=== PATIENT | female | born 1985 | race Caucasian/White ===

== ENCOUNTER 2020-03-03 21:41 | Emergency (ER) | payer OTHER, SELFPAY ==
[2020-03-03 21:41] VITALS: BP 140/83; PULSE 89; RESP 15; TEMP 36.7; O2SAT 100; BMI 24.5
--- NOTE | 2020-03-03 22:00 | ED.DCSUM_ITS ---
History of Present Illness Chief Complaint: Back Informant: Patient Onset: Today Current Severity: Moderate Maximum Severity: Moderate Narrative: Patient presents with low back pain after falling off her horse 2 and half hours ago. Patient does not remember how she landed. She complaining of pain in her lower back. When she tries to walk she will get some pain in her left leg as well. She is had no problems with bowel or bladder control. She was not wearing a helmet. She states she might of gotten a slight abrasion on her head but no significant head injury. Past Medical History - Allergies and Home Meds Allergies/Adverse Reactions: Allergies No Known Allergies Allergy (Verified 03/03/20 21:44) Primary Care Physician: Laurita Contreras MD [Primary Care Provider] - Past Medical History: None Lives: With Family Smoking Status: Never smoker Review of Systems General: Denies: Chills, Fever Eyes: Denies: Visual changes - bilaterally ENT: Denies: Bilateral ear pain Cardiovascular: Denies: Chest pain Respiratory: Denies: Dyspnea, Cough Gastrointestinal: Denies: Abdominal pain, Nausea, Vomiting, Diarrhea Musculoskeletal: Reports: Back pain, Extremity Pain Skin: Reports: Abrasions Neurological: Denies: Headache, Parasthesia, Numbness Hematologic: Denies: Easy bruising, Easy bleeding Allergy: Denies: Uticaria Physical Exam Vital Signs/Narrative: Vital Signs Temp Pulse Resp BP Pulse Ox 03/03/20 21:41 98.1 F 89 15 140/83 H 100 Inital Vital Signs reviewed: Yes General: Well nourished, Well developed Head: Normocephalic ENT: Moist mucous membranes Neck: Supple Cardiovascular: Regular rate, Regular rhythm Respiratory: No distress, CTA bilaterally Abdomen: Soft, Nontender Back: - - Tenderness over the lower lumbar spine. Abrasions are noted across the lower lumbar region/upper pelvis.. Negative for: CVA tenderness Extremities: Nontender Skin: Normal color, No rash Neurological: Alert, Oriented x3, Normal Strength, Normal Sensation Psychological: Normal affect Diagnostic/Tx/Re-eval Impressions Abdomen/Pelvis CT 03/03/20 22:00 IMPRESSION: No CT evidence of acute injury involving the abdomen or pelvis. 5.8 x 5.1 cm cystic lesion in the posterior right pelvis, likely ovarian or adnexal in origin. Electronically Signed: Mario Walls MD at 22:25 EDT Tel , Service support , 03/03/20 22:00 Abdomen/Pelvis without Cont [CT] Stat - Medical Decision Making Patient was given Naprosyn, Flexeril, [place] here for pain. CT flank was obtained. Official read reveals evidence of a probable ovarian cyst but no bony abnormality. It does appear she has some inflammation changes noted in the soft tissue of the left lower flank. Kidneys are unremarkable on my review. Patient will be given prescriptions for home. She is given work restrictions for the next 5 days. ED Disposition - Plan for ED Patient: Disposition: Home or Assisted Living Diagnosis: Back contusion Instructions: ED Contusion Back Prescriptions: cycloBENZAPRine HCl [Flexeril] 10 mg PO TID PRN #20 tablet PRN Reason: Muscle Spasm Naproxen [Naprosyn] 500 mg PO BID PRN PRN #20 tablet PRN Reason: Pain Score 4-10/10 Hydrocodone Bitart/Apap 5-325 [[place] 5MG-325MG] 1 tablet PO Q6H PRN PRN 3 Days #10 tablet PRN Reason: Pain Referrals: Laurita Contreras MD [Primary Care Provider] - 1 Week if not improving
--- NOTE | 2020-03-03 22:00 | CT_ITS ---
STUDY: CT ABDOMEN AND PELVIS WITHOUT CONTRAST REASON FOR EXAM: Female, 34 years old. FELL OFF HORSE, NOW HAVING LBP RADIATION DOSAGE (If Supplied By Facility): CTDIvol = ( 7.56 ) mGy, DLP = ( 339.93 ) mGycm TECHNIQUE: Transaxial images were obtained from the dome of the diaphragm to the symphysis pubis without oral contrast, and without intravenous contrast. Sagittal and coronal images were reconstructed. Individualized dose optimization techniques were used for this CT. COMPARISON: None. FINDINGS: The visualized lung bases are unremarkable. The visualized portions of the heart are within normal limits. Normal liver. Normal gallbladder and extrahepatic biliary system. Normal spleen. Normal pancreas. Normal bilateral adrenal glands. Normal right kidney. Normal left kidney. Normal visualized stomach. Normal small intestine. Normal colon. The appendix is visualized and appears normal. Normal abdominal aorta. Normal inferior vena cava. Normal retroperitoneum. Normal urinary bladder. 5.8 x 5.1 cm cystic lesion in the posterior right pelvis, likely ovarian or adnexal in origin. Normal abdominal wall. Normal osseous structures. CT/Abdomen/Pelvis without Cont IMPRESSION: No CT evidence of acute injury involving the abdomen or pelvis. 5.8 x 5.1 cm cystic lesion in the posterior right pelvis, likely ovarian or adnexal in origin. Electronically Signed: Mario Walls MD at 22:25 EDT Tel , Service support ,
[2020-03-03] MEDS: cycloBENZAPRine HCl 10 MG Tablet PO (22:04)
[2020-03-03] MEDS: Naproxen 500 MG Tablet PO (22:04)
[2020-03-03] MEDS: HYDROcodone Bitartrate/Apap 5/325 Tablet PO (22:04)
[2020-03-03 22:55] VITALS: BP 136/80; PULSE 79; RESP 18; O2SAT 96
== END 2020-03-03 22:55 | disposition home or self-care (01) ==
PROVIDERS: Emergency Provider Emergency Medicine; PCP Internal Medicine
DX: S30.0XXA Contusion of lower back and pelvis, initial encounter (principal); V80.010A Animal-rider injured by fall from or being thrown from horse in noncollision accident, initial encounter; Y93.9 Activity, unspecified; Y92.9 Unspecified place or not applicable
CPT/HCPCS: 74176; 99283

== ENCOUNTER 2025-02-28 04:59 | Emergency (ER) | payer OTHER, SELFPAY ==
[2025-02-28 05:01] VITALS: BP 146/89; PULSE 88; RESP 18; TEMP 36.6; O2SAT 100; BMI 24.1
--- NOTE | 2025-02-28 05:02 | ED.VIS.CHEST ---
HPI History of Present Illness Chief Complaint: Chest Pain Informant: patient Onset/Context/Timing Onset: Days (3) Activity at onset: sudden Timing: Intermittent Location: Right Chest Worsened By: Nothing Relieved By: - (Pushing on right upper chest) Associated Symptoms: Positive for Nausea, Dyspnea, Lightheadedness and Palpitations; Negative for Vomiting, Diaphoresis, Cough, Fever or Acid Reflux Narrative Narrative: Patient presents with chest pain that has been intermittent over the past 3 days. Patient states her pain comes on rather suddenly. Patient states it comes and goes. Patient describes it as a cramping sensation. Patient states it is over the right upper chest. Patient states nothing makes it worse. Patient states that it gets better when she pushes on her right upper chest. Patient admits to some nausea but denies any vomiting. Patient admits to some shortness of breath. Patient admits to some lightheadedness. Patient also admits to occasional palpitations. Patient denies any vomiting. Patient denies any cough or fever. CVD Risk Factors: Negative for Hypertension, Diabetes, Hypercholesterolemia, Family History 1' </=55 or Smoking PE Risk Factors: Negative for Recent Travel/Surgery, Recent Immobilization, Prior DVT or PE, Cancer or OCP + Smoking + >/=35 PFSH PFSH Medical History Hx of ovarian cyst Renetta thyroiditis Home Medications ?Medication ?Instructions ?Recorded ?Last Taken ?Type norgestimate-ethinyl estradiol 1 tab PO DAILY 02/28/25 Unknown History 0.18mg/0.215mg/0.25mg-0.035mg(28)tablet (Tri-Sprintec (28)) Allergy/AdvReac Type Severity Reaction Status Date / Time No Known Allergies Allergy Verified 02/28/25 05:00 Surgical History Hx of tubal ligation Social History Smoking Status: Never smoker ROS ROS ED Constitutional Constitutional ED: Reports sweats; Denies chills or fever(s) Eyes Eyes: Denies blurry vision or change in vision ENT ENT ED: Denies rhinorrhea or sore throat Cardiovascular Cardiovascular: Reports chest pain and palpitations Respiratory/Chest Respiratory/Chest: Reports dyspnea; Denies cough Gastrointestinal Gastrointestinal: Reports nausea; Denies vomiting Genitourinary Genitourinary ED: Denies dysuria or hematuria Musculoskeletal Musculoskeletal: Denies back pain or neck pain Integumentary Denies abscess or rash Neurologic Neurologic: Reports headache(s); Denies weakness Allergic/Immunologic Allergic/Immunologic ED: Denies mouth swelling or urticaria EXAM Physical Exam Const Vital Signs: 02/28/25 05:01 02/28/25 05:03 02/28/25 05:39 Temperature 97.8 F Temperature Source Oral Pulse Rate 88 Respiratory Rate 18 Respiratory Effort Normal Non-Labored Respiratory Pattern Normal Blood Pressure 146/89 H Blood Pressure Mean 108 Pulse Ox 100 98 Oxygen Delivery Method Room Air Room Air 02/28/25 06:00 Temperature Temperature Source Pulse Rate 72 Respiratory Rate 17 Respiratory Effort Respiratory Pattern Blood Pressure 133/87 H Blood Pressure Mean 102 Pulse Ox 99 Oxygen Delivery Method Room Air Positive well nourished and well developed Constitutional Narrative: BMI is 24.1. General Appearance ED: well developed and NAD HEENT Reports moist mucous membranes Neck supple and no JVD Chest Wall palpation of chest normal Resp normal respiratory effort and clear to auscultation bilaterally Cardio regular rate and regular rhythm GI soft to palpation, non-tender and non-distended Extremity normal to inspection General Extremety ED: Negative for edema or tenderness General Extremity: Negative for edema Neuro oriented x3, CN's II-XII intact bilaterally and no sensory deficits noted Sensorium / Orientation: awake and alert Motor Exam: strength 5/5 throughout Psych mental status grossly normal Heart Score History: Slightly/Non-Suspicious ECG: Normal Age: </= 45 years Risk Factors: No Risk Factors Troponin: </= Normal Limit Score: 0 MDM MDM MDM Narrative Medical decision making narrative: Differential diagnosis includes cardiac dysrhythmia, cardiac ischemia, pneumonia, bronchitis, electrolyte abnormality, pulmonary embolism, and musculoskeletal pain. EKG will be obtained to assess for cardiac dysrhythmia and cardiac ischemia. Chest x-ray will be obtained to assess for pneumonia or bronchitis. CBC will be obtained to assess for leukocytosis and anemia. Basic metabolic profile will be obtained to assess for electrolyte abnormality and renal function. High-sensitivity troponin will be obtained to assess for cardiac ischemia. 2-hour repeat high-sensitivity troponin will be obtained to assess for ongoing cardiac ischemia. D-dimer will be obtained to assess for pulmonary embolism. Lab Data Attestation: I reviewed the patient's lab results. Lab results narrative: CBC was reviewed. There is a slight anemia with a hemoglobin of 11.6 and 34.5. Basic metabolic profile was reviewed. BUN was slightly elevated at 35. Creatinine was slightly low at 0.63. The remainder is within normal limits. High-sensitivity troponin was reviewed and was less than 6. D-dimer was reviewed and was slightly elevated at 0.85. Labs: Laboratory Results - last 24 hr 02/28/25 05:10 WBC 9.1 RBC 3.78 L Hgb 11.6 L Hct 34.5 L MCV 91.3 MCH 30.7 MCHC 33.6 RDW Std Deviation 42.1 RDW Coeff of Elis 12.7 Plt Count 311 MPV 10.9 Immature Gran % (Auto) 0.300 Neut % (Auto) 64.5 Lymph % (Auto) 24.5 [place] % (Auto) 5.4 Eos % (Auto) 5.0 Baso % (Auto) 0.3 Absolute Neuts (auto) 5.9 Absolute Lymphs (auto) 2.22 Nucleated RBC % 0 D-Dimer Quant (PE/DVT) 0.85 H* Sodium 140 Potassium 4.7 Chloride 104 Carbon Dioxide 26.1 Anion Gap 9 BUN 35 H Creatinine 0.63 L Estim Creat Clear Calc 104.55 Est GFR (MDRD) Non-Af 117 BUN/Creatinine Ratio 55.4 H Glucose 84 Calcium 8.8 Troponin T High Sens < 6 Radiography Chest X-Ray - ED: 2 View, Read by ED Physician, Read by Radiologist and No Acute Disease Diagnostic Testing: Clinical Impression(s) from Imaging Studies Chest X-Ray 02/28/25 06:00 IMPRESSION: No acute process is identified in the chest. [facility] CTA 02/28/25 06:32 IMPRESSION: NORMAL CHEST CTA. NO EVIDENCE OF ACUTE PULMONARY EMBOLISM. Reading Location: [id number] and lateral chest x-ray was obtained. There are 2 views. On my independent interpretation, lung stone are clear. There is normal cardiac silhouette. Bony thorax is normal. There is no acute process noted. Radiologist also interpreted the x-ray and agrees. CTA of the chest was obtained. There is no evidence of pulmonary embolism or aortic dissection. There is no acute process noted. This was interpreted by the radiologist and was also dependently reviewed by myself. EKG Initial EKG: Attestation: I personally reviewed and interpreted this EKG as follows: Interpretation: Sinus Rhythm (81) and No Acute Injury Pattern Comments: EKG was obtained. On my independent interpretation, it showed a normal sinus rhythm with a rate of 81. TX interval, QRS interval, and QTc intervals were all normal. [place] was normal. There are no acute ST or T wave changes. Prior EKG tracings: not available for review Prior: No Prior Additional Tests and Interventions Additional Tests or Interventions: Because of the elevated D-dimer, CTA of the chest was obtained to assess for pulmonary embolism. Treatment and Re-Evaluation :: Patient was given aspirin. Patient was advised of her findings. Patient has a HEART score of 0. Patient was advised that this is low risk for acute cardiac event. Patient was instructed to follow-up with her primary care physician in 5 to 7 days. Patient was instructed to return if worse in any way. Patient understood and was agreeable with the plan. All questions were answered. Discharge Plan Triage Chief Complaint: Chest Pain ED Provider: Galileo Soares Dx/Rx/DC Orders Clinical Impression: Right-sided chest pain, Elevated blood pressure reading Instructions: ED Chest Pain, Uncertain Cause Prescriptions: No Action norgestimate-ethinyl estradiol [Tri-Sprintec (28)] 0.18/0.215/0.25 mg-0.035mg (28) tablet 1 tab PO DAILY Patient Comments: TAKE 1 TABLET BY MOUTH ONCE DAILY Primary Care Provider: Laurita Contreras Referrals: Laurita Contreras MD [Primary Care Provider] - 5-7 Days Print Language: Georgian Disposition Disposition: Home, Self Care
--- NOTE | 2025-02-28 05:32 | EKG12_ITS ---
Test Reason : CP Blood Pressure : */* mmHG Vent. Rate : 81 BPM Atrial Rate : 81 BPM P-R Int : 146 ms QRS Dur : 76 ms QT Int : 380 ms P-R-T Axes : 78 72 64 degrees QTcB Int : 441 ms Normal sinus rhythm Normal ECG No previous ECGs available Confirmed by RAKESH SÁNCHEZ, SRAVAN ([id number]), editor farm journal COY ALANIS ([id number]) on 03/02/2025 6:31:36 AM Referred By: ILEANA Confirmed By: SRAVAN CAMERON MD
[2025-02-28 05:39] VITALS: O2SAT 98
--- OUTSIDE RECORDS SUMMARY | 2025-02-28 05:43 | XMS RPT_ITS | CCD ---
Author Organization [facility] CliniSyia Care Team Providers Care Component Prep Operator Name Role Phone Cheryle Werner Unavailable JUDI DAWKINS Attending Unavailable MONTRELLAMPDENICE, CHERYLE D Primary Care Unavailable Cheryle Werner MD Primary Care Provider Cheryle Werner MD Primary Care Provider [place] BLOCKER HAND.SHOE RECONDITIONER, Elena Unavailable Sully BLOCKER HAND.METALWORKING SPECIALIST, Mony Unavailable Sully BLOCKER HAND.METALWORKING SPECIALIST, Mony Unavailable Sully BLOCKER HAND.METALWORKING SPECIALIST, Mony Unavailable FRANCES MOJICA Admitting Unavail able FRANCES MOJICA Attending Unavail able TALAMPAS, CHERYLE D Primary Care Unavailable FRANCES MOJICA Attending Unavail able TALAMPAS, CHERYLE D Primary Care Unavailable NEFRANCES URBINA Referring Unavail able TALAMPAS, CHERYLE D Primary Care Unavailable FRANCES MOJICA Referring Unavail able TALAMPAS, CHERYLE D Primary Care Unavailable NEFRANCES URBINA Referring Unavail able TALAMPAS, CHERYLE D Primary Care Unavailable FILOMENA CASTORENA Referring Unavailable TALAMPAS, CHERYLE D Primary Care Unavailable TALAMPAS, CHERYLE D Primary Care Unavailable FILOMENA CASTORENA Referring Unavailable TALAMPAS, CHERYLE D Primary Care Unavailable FILOMENA CASTORENA Attending Unavailable TALAMPAS, CHERYLE D Primary Care Unavailable TALAMPAS, CHERYLE D Referring Unavailable TALAMPAS, CHERYLE D Primary Care Unavailable TALAMPAS, CHERYLE D Attending Unavailable TALAMPAS, CHERYLE D Primary Care Unavailable NEFRANCES URBINA Referring Unavail able CHERYLE WERNER Primary Care Unavailable Sully BLOCKER HAND.METALWORKING SPECIALIST, Mony Unavailable Fairchild BLOCKER HAND.SHOE RECONDITIONER, Elena Unavailable [place] BLOCKER HAND.SHOE RECONDITIONER, Elena Unavailable [phone] Allergies Allergy Classification Reported Allergen(s) Allergy Type Date of Onset Reaction(s) Facility (20 sources) HORSE DANDER; Translations: [HORSE DANDER] Propensity to adverse reactions to drug 6 Hives, Intolerance [facility] (7 sources) Environmental allergies [Other] Propensity to adverse reactions 7 [facility] (7 sources) horses [Other] Propensity to adverse reactions 6 [facility] Work Phone: (20 sources) Seasonal allergy; Translations: [SEASONAL ALLERGIES] Allergy to substance 7 Intolerance [facility] Medications Current Medications Medication Drug Class(es) Dates Sig (Normalized) Sig (Original) acetaminophen 250 mg / aspirin 250 mg / caffeine 65 mg oral tablet (20 sources) Platelet Aggregation Inhibitor, Nonsteroidal Anti-inflammatory Drug, Central Nervous System Stimulant, Methylxanthine Start: 02-13-2017 take 1 tablet by mouth every six hours as needed Aspirin-Acetamino phen-Caffeine (EXCEDRIN MIGRAINE) 250-250-65 mg per tablet Indications: Migraine without aura and without status migrainosus, not intractable Take 1 tablet by mouth every 6 hours as needed. (does not need often) 02/13/2017 Active Comment on above: Take 1 tablet by edwin every 6 hours as needed. (does not need often) amoxicillin 875 mg / clavulanate 125 mg oral tablet (3 sources) Penicillin-class Antibacterial Start: 07-05-2024 End: 07-15-2024 take 1 tablet by mouth twice daily amoxicillin-clavu lanate potassium (AUGMENTIN) 875-125 mg per tablet Indications: Acute recurrent sinusitis, unspecified location Take 1 tablet by mouth two times a day for 10 days. 20 tablet 07/05/2024 07/15/2024 Active Start: 12-27-2021 End: 01-01-2022 take 1 tablet by mouth twice daily amoxicillin-clavulanic acid (AUGMENTIN) 875-125 mg per tablet Take 1 tablet by mouth twice daily for 5 days. 10 tablet 0 12/27/2021 01/01/2022 Active Start: 02-19-2018 End: 03-01-2018 take 1 tablet by mouth twice daily amoxicillin-clavulanate (AUGMENTIN) 875-125 mg per tablet Indications: Acute non-recurrent sinusitis, unspecified location Take 1 (one) tablet by mouth 2 (two) times a day for 10 days. 20 tablet 0 02/19/2018 03/01/2018 Active Comment on above: Take 1 tablet by [facility] twice daily for 5 days. ascorbic acid 1000 mg oral tablet (20 sources) Vitamin C Start: 07-15-19 VITAMIN C 1,000 MG TAB Take one(1) tablet daily. 0 07/15/2005 Active Comment on above: Take one(1) tablet d aily. brompheniramine maleate 0.4 mg/ml / dextromethorphan hydrobromide 2 mg/ml / pseudoephedrine hydrochloride 6 mg/ml oral solution (1 source) alpha-Adrenergic Agonist, Uncompetitive F-ufuzku-Y-aspartate Receptor Antagonist, Sigma-1 Agonist Start: 03-11-20 End: 03-21-20 23 take 5 mL by mouth every six hours as needed for cough brompheniramine-ps eudoePHEDrine-DM 2-30-10 mg/5 mL syrup Indications: Acute upper respiratory infection Take 5 mL by mouth every 6 (six) hours as needed (for cough) . 100 mL 0 03/11/2023 03/21/2023 Active cholecalciferol 0.025 mg oral capsule (20 sources) Vitamin D Start: 02-14-20 take 1 capsule by mouth once daily Cholecalciferol, Vitamin D3, 1,000 unit cap Take 1 capsule by mouth once daily. 02/13/2017 Active Comment on above: Take 1 capsule by [facility] once daily. Ethinyl Estradiol / norgestimate (20 sources) Progestin, Estrogen Start: 09-16-19 25 take 1 tablet by mouth once daily TRI-SPRINTEC 0.18/0.215/0.25 mg-35 mcg (28) Take 1 tablet by mouth once daily. 84 tablet 3 09/15/2024 Active Start: 09-28-2023 End: 09-14-2024 take 1 tablet by mouth once daily TRI-SPRINTEC 0.18/0.215/0.25 mg-35 mcg (28) Take 1 tablet by mouth once daily. 84 tablet 3 09/28/2023 09/14/2024 Discontinued Start: 09-28-2023 take 1 tablet by edwin th once daily TRI-SPRINTEC 0.18/0.215/0.25 mg-35 mcg (28) Take 1 tablet by mouth once daily. 84 tablet 3 09/28/2023 Active Start: 07-20-2023 End: 09-28-2023 take 1 tablet by mouth once daily TRI-SPRINTEC 0.18/0.215/0.25 mg-35 mcg (28) Take 1 tablet by mouth once daily. 84 tablet 0 07/20/2023 09/28/2023 Discontinued Start: 09-15-2022 take 1 tablet by edwin th once daily TRI-SPRINTEC 0.18/0.215/0.25 mg-35 mcg (28) Take 1 tablet by mouth once daily. 84 tablet 3 09/15/2022 Active Start: 07-16-2022 End: 09-15-2022 take 1 tablet by mouth once daily TRI-SPRINTEC 0.18/0.215/0.25 mg-35 mcg (28) Take 1 tablet by mouth once daily. 28 tablet 2 07/16/2022 09/15/2022 Discontinued Start: 07-16-2022 take 1 tablet by edwin th once daily TRI-SPRINTEC 0.18/0.215/0.25 mg-35 mcg (28) Take 1 tablet by mouth once daily. 28 tablet 2 07/16/2022 Active Start: 08-12-2021 End: 07-14-2022 take 1 tablet by mouth once daily TRI-SPRINTEC 0.18/0.215/0.25 mg-35 mcg (28) Take 1 tablet by mouth once daily. 28 tablet 11 08/12/2021 07/14/2022 Discontinued Start: 08-12-2021 take 1 tablet by edwin th once daily TRI-SPRINTEC 0.18/0.215/0.25 mg-35 mcg (28) Take 1 tablet by mouth once daily. 28 tablet 11 08/12/2021 Active Start: 07-23-2018 take 1 tablet by edwin th once daily at dinner norgestimate-ethinyl estradioL (ORTHO TRI-CYCLEN,TRINESSA) 0.18/0.215/0.25 mg-35 mcg (28) per tablet Take 1 (one) tablet by mouth daily with dinner . 0 07/23/2018 Active Comment on above: Take 1 tablet by edwin th once daily. fexofenadine hydrochloride 180 mg oral tablet (20 sources) Histamine-1 Receptor Antagonist Start: 02-14-20 17 take 1 tablet by mouth once daily fexofenadine (MIGUEL) 180 mg tablet Indications: Chronic allergic rhinitis, unspecified seasonality, unspecified trigger Take 1 tablet by mouth once daily. During allergy season 02/13/2017 Active Comment on above: Take 1 tablet by edwin th once daily. During allergy season fluticasone propionate 0.05 mg/actuat metered dose nasal spray (20 sources) Corticosteroid Start: 03-02-20 End: 03-11-20 24 take 1-2 spray(s) nasal route once daily fluticasone (FLONASE) 50 mcg/actuation nasal spray Indications: Allergic rhinitis due to animal hair and dander Use 1-2 Sprays in each nostril once daily. 3 Each 3 03/11/2024 Active Start: 12-06-2020 End: 02-21-2022 take 1-2 spray(s) nasal route once daily fluticasone (FLONASE) 50 mcg/actuation nasal spray Use 1-2 Sprays in each nostril once daily. 1 Each 11 02/21/2022 Active Comment on above: Use 1-2 Sprays in ea ch nostril once daily. Lactobacillus acidophilus (6 sources) Lactobacillus acidophilus (PROBIOTIC ORAL) Take by mouth. Active MULTIVITAMIN TAB (20 sources) Start: 07-11-20 05 MULTIVITAMIN TAB Take one(1) tablet daily. 0 07/11/2005 Active Comment on above: Take one(1) tablet d aily. ondansetron 4 mg disintegrating oral tablet (20 sources) Serotonin-3 Receptor Antagonist Start: 10-05-19 25 End: 10-12-19 25 take 1 tablet by mouth every eight hours as needed ondansetron orally disintegrating (ZOFRAN ODT) 4 mg disintegrating tablet Dissolve 1 tablet on tongue every 8 hours as needed for nausea/vomiting for up to 7 days. 21 tablet 10/04/2024 12:42 PM EDT 10/04/2024 10/11/2024 Active Start: 03-11-2024 take 1 tablet by edwin th every six hours as needed for nausea ondansetron orally disintegrating (ZOFRAN ODT) 4 mg disintegrating tablet Indications: Migraine without aura and without status migrainosus, not intractable Take 1 tablet by mouth every 6 hours as needed for nausea/vomiting. 30 tablet 1 03/11/2024 Active organ concentrates (ADRENAL ORAL) (6 sources) organ concentrat es (ADRENAL ORAL) Take by mouth. Active Completed/Discontinued Medications Medication Drug Class(es) Dates Sig (Normalized) Sig (Original) cromolyn sodium 40 mg/ml ophthalmic solution (2 sources) Mast Cell Stabilizer Start: 10-14-2018 End: 02-21-2022 Cromolyn Sodium (CROLOM) 4 % ophthalmic solution 1-2 drops to each eye 4 to 6 times a day as needed. 1 Bottle 11 10/14/2018 02/21/2022 Discontinued Comment on above: 1-2 drops to each ey e 4 to 6 times a day as needed. olopatadine 1 mg/ml ophthalmic solution (7 sources) Histamine-1 Receptor Inhibitor Start: 12-06-2020 take 1-2 drop(s) into the eye(s) twice daily as needed olopatadine (PATANOL) 0.1 % ophthalmic solution Use 1-2 Drops in both eyes twice daily as needed. 1 Bottle 11 12/06/2020 Active Comment on above: Use 1-2 Drops in bot h eyes twice daily as needed. Problems Active Problems Problem Classification Problem Date Documented Date Episodic/Chronic Headache; including migraine (20 sources) Migraine without aura, not refractory ; Translations: [Migraine without aura, not intractable, without status migrainosus] Onset: 02-13-2017 02-13-2017 Chronic Immunizations and screening for infectious disease (1 source) Contact with or exposure to other viral diseases; Translations: [Exposure to COVID-19 virus] 03-11-2023 Episodic Menstrual disorders (20 sources) Excessive and frequent menstruation; Translations: [Excessive and frequent menstruation with regular cycle] Onset: 07-28-2006 07-28-2006 Chronic Other female genital disorders (1 source) Heavy episode of vaginal bleeding; Translations: [Abnormal uterine and vaginal bleeding, unspecified] 10-10-2024 Chronic Other female genital disorders (1 source) Abnormal uterine and vaginal bleeding, unspecified; Translations: [Episode of heavy vaginal bleeding] Onset: 10-10-2024 Chronic Other nervous system disorders (1 source) Other acute postprocedural pain; Translations: [Postoperative pain] Onset: 10-04-2024 Episodic Other screening for suspected conditions (not mental disorders or infectious disease) (1 source) Other specified abnormal findings of blood chemistry; Translations: [Elevated platelet count] Onset: 07-22-2024 Episodic Other upper respiratory disease (20 sources) Allergic rhinitis; Translations: [Allergic rhinitis, unspecified] Onset: 09-29-2006 02-13-2017 Chronic Other upper respiratory disease (20 sources) Allergic rhinitis due to pollen; Translations: [Allergic rhinitis due to pollen] Onset: 09-16-2017 09-16-2017 Chronic Other upper respiratory disease (20 sources) Allergic rhinitis due to animal hair and dander; Translations: [Allergic rhinitis due to animal (cat) (dog) hair and dander] Onset: 10-14-2018 10-14-2018 Chronic Other upper respiratory disease (1 source) Allergic rhinitis due to animal (cat) (dog) hair and dander; Translations: [Allergic rhinitis due to animal hair and dander] Onset: 10-14-2018 Chronic Other upper respiratory infections (6 sources) Acute sinusitis; Translations: [Acute pansinusitis] Onset: 03-11-2023 Episodic Ovarian cyst (12 sources) Cyst of ovary; Translations: [Unspecified ovarian cyst, unspecified side] Onset: 08-20-2024 Episodic Thyroid disorders (20 sources) Angelica thyroiditis; Translations: [Autoimmune thyroiditis] Onset: 01-29-2006 Resolved: 03-15-2016 01-29-2006 Chronic Unclassified (1 source) Contact with and (suspected) exposure to covid-19; Translations: [Contact with and (suspected) exposure to covid-19] Onset: 03-11-2023 Unclassified (1 source) OPENED IN ERROR 10-05-2024 Past or Other Problems Problem Classification Problem Date Documented Da te Episodic/Chronic Inflammation; infection of eye (except that caused by tuberculosis or sexually transmitteddisease) (20 sources) Acute atopic conjunctivitis; Translations: [Acute atopic conjunctivitis, unspecified eye] Onset: 11-21-2010 11-21-2010 Episodic Lymphadenitis (3 sources) Cervical lymphadenopathy; Translations: [Localized enlarged lymph nodes] Onset: 06-27-2024 06-27-2024 Episodic Screening and history of mental health and substance abuse codes (5 sources) Patient encounter status; Translations: [Encounter for screening for depression] Onset: 03-11-2024 03-11-2024 Episodic Unclassified (1 source) Dysfunction of both eustachian tubes Unclassified (1 source) Contact with and (suspected) exposure to covid-19; Translations: [Contact with and (suspected) exposure to covid-19] Onset: 03-11-2023 Results Test Name Value Interpretation Reference Range Facility [facility] 10-11-2024 [address]CO Letter Text Normal [facility] CBC panel Auto (Bld)on 10-10 Erythrocyte distribution width (RBC) [Ratio] 12.1 % 11.5 - 15.0 % [facility] Hematocrit (Bld) [Volume fraction] 43.2 % 36.0 - 46.0 % [facility] Hemoglobin (Bld) [Mass/Vol] 14.2 g/dL 11.5 - 15.5 g/dL [facility] Interpretation and review of laboratory results Normal [facility] MCH (RBC) [Entitic mass] 30 pg 26.0 - 34.0 pg [facility] MCHC (RBC) [Mass/Vol] 32.9 g/dL 30.5 - 36.0 g/dL [facility] MCV (RBC) [Entitic vol] 91.3 fL 80.0 - 100.0 fL [facility] Nucleated RBC (Bld) [#/Vol] NINF [facility] Platelet mean volume (Bld) [Entitic vol] 11 fL 9.0 - 12.7 fL [facility] Platelets (Bld) [#/Vol] 347 10*3/uL [facility] RBC (Bld) [#/Vol] 4.73 10*6/uL 3.90 - 5.2 0 m/uL [facility] WBC (Bld) [#/Vol] 10.9 10*3/uL [facility] Erythrocyte distribution width (RBC) [Ratio] 12.1 % Normal 11.5-15.0 [facility] Comment on above: Order Comment: Speci men Type: BLOOD SPECIMENOrdering Facility: [facility] Address: [address] [place] [address] Performed By: #### 5 8410-2 ####[facility] LABIA [id number] [place] [address] [place] Hematocrit (Bld) [Volume fraction] 43.2 % Normal 36.0-46.0 [facility] Comment on above: Order Comment: Speci men Type: BLOOD SPECIMENOrdering Facility: [facility] Address: [address] [place] [address] Performed By: #### 5 8410-2 ####[facility] LABIA [id number] [place] [address] [place] Hemoglobin (Bld) [Mass/Vol] 14.2 g/dL Normal 11.5-15.5 [facility] Comment on above: Order Comment: Speci men Type: BLOOD SPECIMENOrdering Facility: [facility] Address: [address] [place] [address] Performed By: #### 5 8410-2 ####[facility] LABIA [id number] [place] [address] [place] MCH (RBC) [Entitic mass] 30.0 pg Normal 26.0-34.0 [facility] Comment on above: Order Comment: Speci men Type: BLOOD SPECIMENOrdering Facility: [facility] Address: [address] [place] [address] Performed By: #### 5 8410-2 ####[facility] LABIA [id number] [place] [address] [place] MCHC (RBC) [Mass/Vol] 32.9 g/dL Normal 30.5-36.0 [facility] Comment on above: Order Comment: Speci men Type: BLOOD SPECIMENOrdering Facility: [facility] Address: [address] [place] [address] Performed By: #### 5 8410-2 ####[facility] LABCLIA [id number] [place] [address] [place] MCV (RBC) [Entitic vol] 91.3 fL Normal 80.0-100.0 [facility] Comment on above: Order Comment: Speci men Type: BLOOD SPECIMENOrdering Facility: [facility] Address: [address] [place] [address] Performed By: #### 5 8410-2 ####[facility] LABCLIA [id number] [place] [address] [place] Nucleated RBC (Bld) [#/Vol] 10*3/uL Normal <0.01 [facility] Comment on above: Order Comment: Speci men Type: BLOOD SPECIMENOrdering Facility: [facility] Address: [address] [place] [address] Performed By: #### 5 8410-2 ####[facility] LABIA [id number] [place] [address] [place] Platelet mean volume (Bld) [Entitic vol] 11.0 fL Normal 9.0-12.7 [facility] Comment on above: Order Comment: Speci men Type: BLOOD SPECIMENOrdering Facility: [facility] Address: [address] [place] [address] Performed By: #### 5 8410-2 ####[facility] LABCLIA [id number] [place] [id number] [place] Platelets (Bld) [#/Vol] 347 10*3/uL Normal 150-400 [facility] Comment on above: Order Comment: Speci men Type: BLOOD SPECIMENOrdering Facility: [facility] Address: [address] [place] [address] Performed By: #### 5 8410-2 ####[facility] LABCLIA [id number] [place] [address] [place] RBC (Bld) [#/Vol] 4.73 10*6/uL Normal 3.90-5.20 [facility] Comment on above: Order Comment: Speci men Type: BLOOD SPECIMENOrdering Facility: [facility] Address: [address] [place] [address] Performed By: #### 5 8410-2 ####[facility] LABIA [id number] [place] [id number] [place] WBC (Bld) [#/Vol] 10.90 10*3/uL Normal 3.70-11.00 [facility] Comment on above: Order Comment: Speci men Type: BLOOD SPECIMENOrdering Facility: [facility] Address: [address] [place] [address] Performed By: #### 5 8410-2 ####[facility] LABIA [id number] [address] OF [facility] CNPNon 10-10-2024 CNPN Telephone (OBGYWM) SRUTHI FLOWERS ([id number]) 1985 F Date Time Provider Department 10/10/24 FRANCES MOJICA OBGYWM During your visit today, we recorded the following information about you: Leesa Fuentes, RICHARD 10/10/2024 9:33 AM Signed Frances Mojica MD to [facility] Ob-Web Marketing Assistant Pool 10/10/24 8:03 AM Result Note Please call patient - see how she is feeling s/p Ovarian cystectomy and bilateral salpingectomy. Please let her know cyst was benign. - c/w cystadenoma. No further management needed. SURGICAL PATHOLOGY Leesa Fuentes RN 10/10/2024 9:33 AM Signed Patient notified. Doing well overall since surgery. No pain currently. She is only concerned about her bleeding. States provider told her to expect bleeding for 3-4 days and she is still bleeding today. Changing pad approximately 4-5 hours today but not saturated completely every time. Having some small clots with it too. States bleeding is platform loader today so far than yesterday. Please advise. RICHARD Lopes Deidre, MD 10/10/2024 1:16 PM Signed This can be normal - continue to monitor. Leesa Fuentes RN 10/10/2024 1:44 PM Signed Patient notified. Heavy bleeding precautions reviewed. Stated that she did have heavy bleeding on 09/09 where she was saturating pads and blood would pour out when sitting on toilet. Feeling some dizziness and fatigue today, but overall feeling better since bleeding is so much platform loader. Encouraged to continue to push fluids. She is asking if she can still return to work tomorrow? RICHARD Lopes Deidre, MD 10/10/2024 3:18 PM Signed So long as she is feeling better and not light headed she can return to work. I will order CBC. Leesa Fuentes RN 10/10/2024 3:31 PM Signed Patient notified. States she doesn't feel she can work tomorrow with the dizziness. She will get CBC done today. She did speak to employer and they told her she is able to be out this week and return on 10/17 if needed. They would just needed updated letter from doctor. Patient asking if she can get that and if not all week how many more days will you approve for leave? Okay to release letter to [facility]. RICHARD Lopes Trisha, RN 10/10/2024 5:19 PM Signed Patient notified DM has not reviewed note and we will contact her tomorrow once reviewed by provider. RICHARD Lopes Deidre, MD 10/10/2024 5:45 PM Signed Yes she can have the week off if she feels she needs it. Sharon Burgos RN 10/11/2024 8:44 AM Signed Patient notified and voiced understanding. Letter released to [facility]. Sharon Burgos RN Allergies As of Date: 10/10/2024 Noted Allergy Reaction HORSE DANDER 07/15/2005 5 - Intolerance SEASONAL ALLERGIES 09/29/2006 5 - Intolerance Comments: Dogs, trees Date Reviewed: 10/04/2024 Reviewed by: Kala Manning RN - Fully Assessed Reason for Visit: Results [95] Post Op [174] Primary Visit Diagnosis:Episode of heavy vaginal bleeding [N93.9] Order(s):COMPLETE BLOOD COUNT [SQCBC] Order #: [id number] FUTURE Prescriptions as of 10/11/2024 - ondansetron orally disintegrating (ZOFRAN ODT) 4 mg disintegrating tablet Dissolve 1 tablet on tongue every 8 hours as needed for nausea/vomiting for up to 7 days. - Lactobacillus acidophilus (PROBIOTIC ORAL) Take by mouth. - organ concentrates (ADRENAL ORAL) Take by mouth. - TRI-SPRINTEC 0.18/0.215/0.25 mg-35 mcg (28) Take 1 tablet by mouth once daily. - fluticasone (FLONASE) 50 mcg/actuation nasal spray Use 1-2 Sprays in each nostril once daily. - ondansetron orally disintegrating (ZOFRAN ODT) 4 mg disintegrating tablet Take 1 tablet by mouth every 6 hours as needed for nausea/vomiting. - Ntjtfit-Usldjbfirohou-Umisn ine (EXCEDRIN MIGRAINE) 250-250-65 mg per tablet Take 1 tablet by mouth every 6 hours as needed. (does not need often) - fexofenadine (MIGUEL) 180 mg tablet Take 1 tablet by mouth once daily. During allergy season - Cholecalciferol, Vitamin D3, 1,000 unit cap Take 1 capsule by mouth once daily. - VITAMIN C 1,000 MG TAB Take one(1) tablet daily. - MULTIVITAMIN TAB Take one(1) tablet daily. Problem List As Of Date 10/10/2024 Noted Resolved Other and unspecified chronic thyroiditis [E06.*01/29/2006 03/15/2016 CHR LYMPHOCYT THYROIDIT [E06.3] 01/29/2006 EXCESSIVE MENSTRUATION [N92.0] 07/28/2006 Allergic rhinitis [J30.9] 09/29/2006 Acute atopic conjunctivitis [H10.10] 11/21/2010 Migraine without aura and without status migrai*02/13/2017 Seasonal allergic rhinitis due to pollen [J30.1]09/16/2017 Multinodular goiter [E04.2] 02/15/2018 Allergic rhinitis due to animal hair and dander*10/14/2018 Encounter Status:Closed by SHARON BURGOS on 10/11/[address] [facility] ANES POSTPROC EVALon 025 ANES POSTPROC EVAL HNO ID: [id number] Author: ASIA FRASER MD Service: Anesthesiology Author Type: Anesthesiologist Type: Anesthesia Postprocedure Evaluation Filed: 10/04/2024 14:31 Note Text: POST ANESTHESIA EVALUATION NOTE : 1985 Procedure Summary Date: 10/04/24 Room / Location: [facility] OR / [facility] OR Anesthesia Start: 1241 Anesthesia Stop: 1428 Procedures: LAPAROSCOPIC EXCISION CYST OVARIAN (Right: Ovary) LAPAROSCOPIC SALPINGECTOMY (Bilateral) Diagnosis: Ovarian cyst, right (Ovarian cyst, right [N83.201]) Surgeons: Frances Mojica MD Responsible Provider: Asia Fraser MD Anesthesia Type: general ASA Status: 2 Anesthesia Type: general Airway Type: ETT Last Vitals Vitals Value Taken Time BP 152/90 10/04/24 1430 Temp 10/04/24 1431 Pulse 79 10/04/24 1429 Resp 16 10/04/24 1429 SpO2 98 % 10/04/24 1429 Vitals shown include unfiled device data. Post Anesthesia Patient Status Patient Evaluation: PACU. PACU/ICU Patient Condition: stable. Anticipated Disposition: phase 2 then home. Neurological Status: sleepy but arousable. Pulmonary Status: breathing comfortably on room air Airway Control: returned to baseline unsupported. Cardiovascular Status: stable. Pain Management: clinically adequate - multimodal analgesia pain management approach Postoperative Hydration: acceptable. Intraoperative Events: no significant anesthesia events Post Operative Nausea/Vomiting Status: no significant post operative nausea or vomiting Recommendation: continue current plan of care. Anesthesia Observations No Documentation SIGNATURE: Asia Fraser MD PATIENT NAME: Sruthi Flowers DATE: October 04, 2024 TIME: 2:31 PM CSN: [id number] [facility] ANES PRE-OPon 10-04-2024 ANES PRE-OP HNO ID: [id number] Author: ASIA FRASER MD Service: Anesthesiology Author Type: Anesthesiologist Type: Anesthesia Preprocedure Evaluation Filed: 10/04/2024 11:51 Note Text: ANESTHESIOLOGY DAY OF SURGERY NOTE : 1985 Procedure Information Date/Time: 10/04/24 1242 Procedures: LAPAROSCOPIC EXCISION CYST OVARIAN (Right: Ovary) LAPAROSCOPIC OOPHORECTOMY (Right: Ovary) LAPAROSCOPIC SALPINGECTOMY (Bilateral) Location: [place] OR02 / [place] Surgeons: Frances Mojica MD Estimated body mass index is 23.83 kg/m? as calculated from the following: Height as of 09/23/24: 163.8 cm (5' 4.5). Weight as of 09/26/24: 64 kg (141 lb). Most recent hematocrit and potassium results: Hematocrit 41.0 07/22/2024 Potassium 4.4 06/27/2024 Relevant Problems CARDIO (+) Migraine without aura and without status migrainosus, not intractable NEURO-PSYCH (+) Migraine without aura and without status migrainosus, not intractable I - PHYSICAL EVALUATION AIRWAY Patient intubated: No. Tracheostomy tube not present Mallampati: II. TM distance: >3 FB. Neck ROM: full ROM without neurological symptoms. Mouth opening: adequate. Short neck: no. Thick neck: no DENTAL Dental findings: teeth intact. Additional exam findings: yes. CARDIOVASCULAR Rhythm: regular Rate: normal PULMONARY Breath sounds clear to auscultation. II - ANESTHESIA PLAN ASA Score: 2 Anesthetic Plan: general Airway type: ETT The patient is not a current smoker. NPO Status: adequate Beta Joaquina Monitoring Plan Monitoring plan: Standard ASA. Post Procedure Analgesic Plan Postoperative analgesic plan: parenteral or oral opioids and multimodal analgesia. Informed Consent Anesthetic risks, benefits, alternatives, personnel and consent discussed: yes. Patient / Responsible Constitution Party agrees to proceed: yes Patient / Surrogate agrees to blood products: yes DNR status not reviewed with patient and/or family prior to surgery. Significant changes in the patient condition since the History and Physical, not otherwise documented in primary service progress note: no. Potential Anesthesia issues that may suggest increased risk of complications or contraindication to planned procedure: none. Vitals Value Taken Time BP 156/94 10/04/24 1136 Pulse 69 10/04/24 1136 Resp 18 10/04/24 1136 Temp 36.7 ?C (98.1 ?F) 10/04/24 1136 SpO2 99 % 10/04/24 1136 Facility-Administered Medications as of 10/04/2024 Medication Dose Route Frequency lidocaine (PF) 10 mg/mL (1 %) 1-2 mg injection (XYLOCAINE) 0.1-0.2 mL INTRADERMAL PRN lactated ringers iv infusion 5-30 mL/hr INTRAVENOUS CONTINUOUS NaCl 0.9% iv flush bag 20 mL INTRAVENOUS PRN [COMPLETED] acetaminophen 1,000 mg tab(s) (TYLENOL) 1,000 mg ORAL Pre-Op Once [COMPLETED] promethazine 12.5 mg tab(s) (PHENERGAN) 12.5 mg ORAL Pre-Op Once [COMPLETED] famotidine 20 mg injection (PEPCID) 20 mg INTRAVENOUS ONCE scopolamine (delivers 1 mg over 3 days) 1 Patch (TRANSDERM-SCOP) 1 Patch TRANSDERMAL q 72 HR And [START ON 10/06/2024] scopolamine - REMOVE PATCH OTHER q 72 HR And scopolamine - VERIFY patch OTHER q 8 H [COMPLETED] celecoxib 200 mg cap(s) (CeleBREX) 200 mg ORAL ONCE Outpatient Medications as of 10/04/2024 Medication Sig TRI-SPRINTEC 0.18/0.215/0.25 mg-35 mcg (28) Take 1 tablet by mouth once daily. fluticasone (FLONASE) 50 mcg/actuation nasal spray Use 1-2 Sprays in each nostril once daily. Suugxbq-Oleqllfnvmgxo-Kffcv ine (EXCEDRIN MIGRAINE) 250-250-65 mg per tablet Take 1 tablet by mouth every 6 hours as needed. (does not need often) fexofenadine (MIGUEL) 180 mg tablet Take 1 tablet by mouth once daily. During allergy season VITAMIN C 1,000 MG TAB Take one(1) tablet daily. ondansetron orally disintegrating (ZOFRAN ODT) 4 mg disintegrating tablet Take 1 tablet by mouth every 6 hours as needed for nausea/vomiting. Cholecalciferol, Vitamin D3, 1,000 unit cap Take 1 capsule by mouth once daily. MULTIVITAMIN TAB Take one(1) tablet daily. I have interviewed and examined the patient. I have reviewed the medical record and/or the pre-anesthesia evaluation, pertinent labs, and test results. This contains updated information obtained within 48 hours of Surgery/Procedure. SIGNATURE: Asia Fraser MD PATIENT NAME: Sruthi Flowers DATE: October 04, 2024 TIME: 11:51 AM CSN: [id number] [facility] NURSING PROGon 10-04-2024 NURSING PROG HNO ID: [id number] Author: KALA MANNING RN Service: ? Author Type: Registered Nurse Type: Nursing Progress Note Filed: 10/04/2024 16:04 Note Text: Patient ambulated to bathroom. Patient slightly unsteady. Patient returned to bed. Discussion regarding staying in PACU longer until less unsteady. Patient states she would like to try to get dressed. [facility] OPERATIVE NOon 10-04-2024 OPERATIVE NO HNO ID: [id number] Author: FRANCES MOJICA MD Service: Gynecology Author Type: Physician Type: Operative Report Filed: 10/04/2024 16:07 Note Text: PULMONARY SPECIALIST OPERATIVE/PROCEDURE REPORT LOG ID: [id number] Surgery/Procedure Date: 10/04/2024 Incision/Procedure Start Time: 1:03 PM Incision Close/Procedure End Time: 2:03 PM Surgeon(s)/Proceduralist(s) and Machine Silver Stripper(s): Surgeons and Role: * Frances Mojica MD - Primary * Tari Hammer DO - Resident - Assisting No Additional Staff Informed Consent: Informed Consent obtained and on the chart Procedure: Laparoscopy Bilateral salpingectomy and Ovarian cystectomy-RIGHT Pre-Op/Pre-Procedure Diagnosis: Desires sterilization and Ovarian cyst Post-Op/Post-Procedure Diagnosis: Same as pre-op diagnosis Antibiotic: None Procedure Details: Patient was taken to the operating room where the sign-in and time out were completed. General anesthesia was induced and found to be adequate. Once anesthesia was found to be adequate, her arms were then tucked to the side, she was placed in dorsal lithotomy position her legs were placed in [place] stirrups with careful attention not to hyperflex or hyperextend the knees or hips. SCDs were placed and turned on for DVT prophylaxis. Exam under anesthesia was performed. Patient was prepped and draped in the usual fashion. A Spears catheter was placed in the urinary bladder under sterile conditions A right angle was placed in the patient's vagina with clear visualization of the cervix. The anterior lip of the cervix was grasped with a single tooth tenaculum. and the cervix was serially dilated to allow placement of a Humi device was placed in the uterus and left in place throughout the laparoscopic portion of the procedure. Attention was turned to the abdomen with clean sterile gloves. Prior to making the incision the area was injected with 2 cc of 05% bupivacaine. , A 5 mm intraumbilical incision was made with the knife., and An optical visualization trochar was placed into the peritoneal cavity while the anterior abdominal wall was elevated. The abdomen was insufflated with CO2 gas. . The abdomen was insufflated with carbon dioxide. The lower abdominal wall was transilluminated and an avascular site was selected in the Right lower abdominal quadrant. Under direction visualization the following trochars were placed RLQ 5 mm and LLQ 5 mm . Findings: Uterus: Normal Right Ovary: Large right ovarian cyst with normal ovarian tissue visualized Left Ovary: Normal Right Fallopian Tube: Normal Left Fallopian Tube: Normal Posterior cul-de-sac: Normal Appendix: Not seen Liver: Not seen Other: N/A Additional techniques Include: BILATERAL SALPINGECTOMY: An atraumatic grasping forceps was passed through the Left port and used to elevate the Right tube away from the sidewall. OVARIAN CYSTECTOMY: Using [place]-polar cautery, an incision was made across the cyst- unable to creat a plane before a perforation occurred and clear fluid appreciated- the fluid was suctioned out of the cyst. The cyst was then dissected free of its remaining ovarian tissue using a ligasure and brought it through the upper right port. The cyst wall was also excised using a LigaSure Normal ovary was seen and remained intact and healthy with a good vascular supply. Hemostasis was achieved. Then An atraumatic grasping forceps was passed through the right port and used to elevate the left tube away from the sidewall. All pedicles observed and hemostatic. Surgicel powder was then used for hemostasis. Abdomen deflated of carbon dioxide and all trocars removed. All skin incisions were closed. The skin was closed with 4-0 Monocryl. The instruments were removed from the vagina. The Spears catheter was removed. Sign-out was completed. IV Fluids: Per anesthesia Urine Output: 200 mL Estimated Blood Loss: < 10 mL Specimens: Left fallopian tube, Right fallopian tube, and right ovarian cyst wall Implantable Devices: NONE Drains: None Complications: None A digital sweep of the vaginal canal was performed by Tari Hammer DO and it was ascertained that no instruments or other foreign bodies are retained within the cavity. Sponge, lap, and needle counts were correct times two and the patient was taken to the recovery room with stable vital signs after tolerating the procedure well. SIGNATURE: Tari Hammer DO PATIENT NAME: Sruthi Flowers DATE: October 04, 2024 TIME: 2:20 PM PAGER/CONTACT #: Attestation: I was present for the critical and collado portions of the surgery and I was immediately available to provide assistance. I agree with the above documentation. Frances Fraga MD [facility] Pathology biopsy report Kayden (Tiss)on 10-04-2024 AP DISCLAIMER [facility] Comment on above: Order Comment: Speci men Type: TISSUE SPECIMEN Ordering Facility: [facility] Address: [address] [place], [place] [id number] Result Comment: Breezy Felix Test (LDT) Disclaimer: Performance characteristics of immunohistochemical, immunofluorescent, and chromogenic in-situ hybridization tests have been determined by the performing laboratory within [facility]'s [facility] Pathology and Laboratory Medicine Department ([facility], [facility], [facility], [facility], [facility], [facility], or [facility]) in a manner consistent with CLIA requirements. One or more of these tests may not have been cleared or approved by the FDA. [facility] is regulated under CLIA as qualified to perform high-complexity testing. These tests are used for clinical purposes. These should not be regarded as investigational or for research. Positive and negative controls stain appropriately. Performed By: #### 6 6121-5 #### [facility] CLIA [id number] [address] [place] [address] [place] CASE REPORT [facility] Comment on above: Order Comment: Speci men Type: TISSUE SPECIMEN Ordering Facility: [facility] Address: [address] [place] [address] Result Comment: Surg ica Pathology Report Case: [id number] Authorizing Provider: Frances Mojica, Collected: 10/04/2024 01:15 PM [facility] Received: 10/04/2024 03:13 PM Pathologist: Regine Waed MD Specimens: A) - Fallopian Tube, Left, Resection B) - Fallopian Tube, Right, Resection C) - Cyst, Ovary, Right, Right ovarian cyst wall Performed By: #### 6 6121-5 #### [facility] CLIA [id number] [address] [place] [address] [place] CLINICAL HISTORY [facility] Comment on above: Order Comment: Speci men Type: TISSUE SPECIMEN Ordering Facility: [facility] Address: [address] [place] [address] Result Comment: Pre- op diagnosis: Ovarian cyst, right [N83.201] Performed By: #### 6 6121-5 #### [facility] CLIA [id number] [address] [place] [address] [place] FINAL DIAGNOSIS [facility] Comment on above: Order Comment: Speci men Type: TISSUE SPECIMEN Ordering Facility: [facility] Address: [address] [place] [address] Result Comment: A. F allopian tube, left, salpingectomy -Fimbriated fallopian tube with no significant pathologic abnormality B. Fallopian tube, right, salpingectomy -Fimbriated fallopian tube with no significant pathologic abnormality C. Ovary, right, cystectomy -Fragments of serous cystadenoma, 4 cm in greatest aggregate at 1446 EDT Performed By: #### 6 6121-5 #### [facility] CLIA [id number] [address] [place] [address] OF [facility] FINAL PERFORMING LAB [facility] Comment on above: Order Comment: Speci men Type: TISSUE SPECIMEN Ordering Facility: [facility] Address: [address] [place] [address] Result Comment: Diag nostic interpretation performed at: [facility], [address] [place] [address], [place] [address] CLIA# [id number] Assistant Director Of Financial Aid: Ben Park MD Performed By: #### 6 6121-5 #### [facility] CLIA [id number] [address] [place] [address] GROSS DESCRIPTION [facility] Comment on above: Order Comment: Speci men Type: TISSUE SPECIMEN Ordering Facility: [facility] Address: [address] [place] [address] Result Comment: A. F allopian Tube, Left, Resection Received in formalin labeled fallopian tube, left is a fallopian tube measuring 6.3 cm in length x 0.5 cm in diameter. The fimbriated end has a normal villous appearance. The serosa is chirinos to brown. The lumen is intact and contains no fluid. A employee's representative section to include the entire fimbriated end is submitted in cassette A1. Gross examination performed at [facility], [address] [place] [address] 10/05/24 12:45 PM B. Fallopian Tube, Right, Resection Received in formalin labeled fallopian tube, right is a fimbriated fallopian tube measuring 5.9 cm in length x 0.5 cm in diameter. The fimbriated end has a normal villous appearance. The serosa is chirinos to brown. There are 2 paratubal cysts each measuring 0.2 cm in greatest dimension. The lumen is intact and contains no fluid. A employee's representative section to include the complete fimbriated end is submitted in cassette B1. Gross examination performed at [facility], [address] [place] [address] 10/05/24 12:51 PM C. Cyst, Ovary, Right Received in formalin labeled right ovarian cyst wall are multiple fragments of white-chirinos soft tissue consistent with a disrupted cyst measuring 4.0 x 2.9 x 0.7 cm and weighing 3.14 g in aggregate. The inner and outer surfaces are smooth and without papillary excrescences. Section reveals unremarkable cut surfaces. No residual ovarian parenchyma is identified. The specimen is submitted in cassettes C1-C3. Gross examination performed at [facility], [address] [place] [address] AC 10/05/24 12:58 PM Performed By: #### 6 6121-5 #### [facility] CLIA [id number] [address] [place] [address] OF [facility] CNOVon 09-26-2024 CNOV Office Visit (OBGYWM ) SRUTHI FLOWERS ([id number]) 1985 F Date Time Provider Department 09/26/24 10:20 AM FRANCES MOJICA OBMARTÍNWAlejandro During your visit today, we recorded the following information about you: Blood pressure Weight 144/84 64 kg Frances Mojica MD 09/26/2024 1:12 PM Signed Pre-Op History and Physical HPI: The patient is a 39 year old female presenting for discussion regarding cystectomy. Pt does not currently have pelvic/abdominal pain but given cyst has gotten larger since previous ultrasound recommendation is removal at this time. Pt does not desire future child bearing capabilities and would also like tubes removed. pre-operative visit. She is scheduled for right ovarian cystectomy, possible oophorectomy with bilateral salpingectomy , for right ovarian cyst, desires sterilization on 10/04/24. Procedure discussed along with risks, benefits and complications. Other alternatives discussed for management. Consent form signed? Yes. PAST MEDICAL HISTORY Diagnosis Date Allergic rhinitis, cause unspecified Chronic lymphocytic thyroiditis Excessive or frequent menstruation WITH IRREGULAR PERIODS Irregular menstrual cycle Migraine without aura and without status migrainosus, not intractable 02/13/2017 jagdeep aura; not often now. Mostly tension headaches Syncope and collapse LIFETIME VASO VAGAL SYNDROME PAST SURGICAL HISTORY Procedure Laterality Date EXTRACTION ERUPTED TOOTH/EXR Current Outpatient Medications Medication Sig Dispense Refill Lactobacillus acidophilus (PROBIOTIC ORAL) Take by mouth. organ concentrates (ADRENAL ORAL) Take by mouth. TRI-SPRINTEC 0.18/0.215/0.25 mg-35 mcg (28) Take 1 tablet by mouth once daily. 84 tablet 3 fluticasone (FLONASE) 50 mcg/actuation nasal spray Use 1-2 Sprays in each nostril once daily. 3 Each 3 ondansetron orally disintegrating (ZOFRAN ODT) 4 mg disintegrating tablet Take 1 tablet by mouth every 6 hours as needed for nausea/vomiting. 30 tablet 1 Ifbxasz-Okhpffblkrflk-Gxsvx ine (EXCEDRIN MIGRAINE) 250-250-65 mg per tablet Take 1 tablet by mouth every 6 hours as needed. (does not need often) fexofenadine (MIGEUL) 180 mg tablet Take 1 tablet by mouth once daily. During allergy season Cholecalciferol, Vitamin D3, 1,000 unit cap Take 1 capsule by mouth once daily. VITAMIN C 1,000 MG TAB Take one(1) tablet daily. 0 MULTIVITAMIN TAB Take one(1) tablet daily. 0 No current facility-administered medications for this visit. ALLERGIES: Horse Dander and Seasonal Allergies PERSONAL HISTORY: Social History Tobacco Use Smoking status: Never Smokeless tobacco: Never Vaping Use Vaping status: Never Used Substance Use Topics Alcohol use: Yes Comment: One to Two Times Per Month Drug use: No FAMILY HISTORY: FAMILY HISTORY Problem Relation Age of Onset Heart Mother IRREGULAR HEART BEAT/ heart virus Melanoma Father other (CONNECTIVE TISSUE DISEASE) Brother Hypertension Brother Prostate Cancer Paternal Grandfather Cancer Paternal Aunt Rectal with mets Cancer Paternal Uncle REVIEW OF SYMPTOMS: negative except as noted above PHYSICAL EXAMINATION: VITALS: Blood pressure 144/84, weight 64 kg (141 lb), last menstrual period 09/20/2024. GENERAL: The patient is well nourished, well hydrated in no acute distress. , The patient is oriented to time, place, and person. NECK: full range of motion LUNGS: Clear to auscultation bilaterally. no wheezes, rhonchi or rales HEART: Regular rate and rhythm, Normal heart sounds, and No murmurs or gallops IMPRESSION: 39yo with complex right ovarian cyst- 8.4x6.9x5.7cm and desires sterilization PLAN: laparoscopic ovarian cystectomy, possible oophorectomy, with bilateral salpingectomy Pt has been counseled on risks/benefits and alternatives of surgery including but not limited to anesthesia, bleeding, infection, injury to pelvic structures including bowel, bladder, ureters and vessels. Pt wishes to proceed with surgery at this time. Pre and post op instructions reviewed. I have reviewed and updated past medical and surgical history, medications and allergies Frances Trevizo MD Allergies As of Date: 09/26/2024 Noted Allergy Reaction HORSE DANDER 07/15/2005 5 - Intolerance SEASONAL ALLERGIES 09/29/2006 5 - Intolerance Comments: Dogs, trees Date Reviewed: 09/26/2024 Reviewed by: Tiffanie Kirby MA - Fully Assessed Primary Visit Diagnosis:Ovarian cyst, right [N83.201] Other Visit Diagnoses:Cyst of ovary, unspecified laterality [N83.209] Sterilization consult [Z30.09] Preoperative examination [Z01.818] Prescriptions as of 09/26/2024 - Lactobacillus acidophilus (PROBIOTIC ORAL) Take by mouth. - organ concentrates (ADRENAL ORAL) Take by mouth. - TRI-SPRINTEC 0.18/0.215/0.25 mg-35 mcg (28) Take 1 tablet by mouth once daily. - fluticasone ( (more content not included)... Normal [facility] HISTORY PHYSICALon HISTORY PHYSICAL HNO ID: [id number] Author: FRANCES MOJICA MD Service: ? Author Type: Physician Type: H&P Filed: 09/26/2024 13:12 Note Text: Pre-Op History and Physical HPI: The patient is a 39 year old female presenting for discussion regarding cystectomy. Pt does not currently have pelvic/abdominal pain but given cyst has gotten larger since previous ultrasound recommendation is removal at this time. Pt does not desire future child bearing capabilities and would also like tubes removed. pre-operative visit. She is scheduled for right ovarian cystectomy, possible oophorectomy with bilateral salpingectomy , for right ovarian cyst, desires sterilization on 10/04/24. Procedure discussed along with risks, benefits and complications. Other alternatives discussed for management. Consent form signed? Yes. PAST MEDICAL HISTORY Diagnosis Date Allergic rhinitis, cause unspecified Chronic lymphocytic thyroiditis Excessive or frequent menstruation WITH IRREGULAR PERIODS Irregular menstrual cycle Migraine without aura and without status migrainosus, not intractable 02/13/2017 jagdeep aura; not often now. Mostly tension headaches Syncope and collapse LIFETIME VASO VAGAL SYNDROME PAST SURGICAL HISTORY Procedure Laterality Date EXTRACTION ERUPTED TOOTH/EXR Current Outpatient Medications Medication Sig Dispense Refill Lactobacillus acidophilus (PROBIOTIC ORAL) Take by mouth. organ concentrates (ADRENAL ORAL) Take by mouth. TRI-SPRINTEC 0.18/0.215/0.25 mg-35 mcg (28) Take 1 tablet by mouth once daily. 84 tablet 3 fluticasone (FLONASE) 50 mcg/actuation nasal spray Use 1-2 Sprays in each nostril once daily. 3 Each 3 ondansetron orally disintegrating (ZOFRAN ODT) 4 mg disintegrating tablet Take 1 tablet by mouth every 6 hours as needed for nausea/vomiting. 30 tablet 1 Pvimvdz-Wjuennjheuggx-Vwius ine (EXCEDRIN MIGRAINE) 250-250-65 mg per tablet Take 1 tablet by mouth every 6 hours as needed. (does not need often) fexofenadine (MIGUEL) 180 mg tablet Take 1 tablet by mouth once daily. During allergy season Cholecalciferol, Vitamin D3, 1,000 unit cap Take 1 capsule by mouth once daily. VITAMIN C 1,000 MG TAB Take one(1) tablet daily. 0 MULTIVITAMIN TAB Take one(1) tablet daily. 0 No current facility-administered medications for this visit. ALLERGIES: Horse Dander and Seasonal Allergies PERSONAL HISTORY: Social History Tobacco Use Smoking status: Never Smokeless tobacco: Never Vaping Use Vaping status: Never Used Substance Use Topics Alcohol use: Yes Comment: One to Two Times Per Month Drug use: No FAMILY HISTORY: FAMILY HISTORY Problem Relation Age of Onset Heart Mother IRREGULAR HEART BEAT/ heart virus Melanoma Father other (CONNECTIVE TISSUE DISEASE) Brother Hypertension Brother Prostate Cancer Paternal Grandfather Cancer Paternal Aunt Rectal with mets Cancer Paternal Uncle REVIEW OF SYMPTOMS: negative except as noted above PHYSICAL EXAMINATION: VITALS: Blood pressure 144/84, weight 64 kg (141 lb), last menstrual period 09/20/2024. GENERAL: The patient is well nourished, well hydrated in no acute distress. , The patient is oriented to time, place, and person. NECK: full range of motion LUNGS: Clear to auscultation bilaterally. no wheezes, rhonchi or rales HEART: Regular rate and rhythm, Normal heart sounds, and No murmurs or gallops IMPRESSION: 39yo with complex right ovarian cyst- 8.4x6.9x5.7cm and desires sterilization PLAN: laparoscopic ovarian cystectomy, possible oophorectomy, with bilateral salpingectomy Pt has been counseled on risks/benefits and alternatives of surgery including but not limited to anesthesia, bleeding, infection, injury to pelvic structures including bowel, bladder, ureters and vessels. Pt wishes to proceed with surgery at this time. Pre and post op instructions reviewed. I have reviewed and updated past medical and surgical history, medications and allergies Frances Trevizo MD Normal [facility] HISTORY PHYSICALon HISTORY PHYSICAL HNO ID: [id number] Author: EDDIE WOLF APRN.METALWORKING SPECIALIST Service: ? Author Type: Nurse Practitioner Type: H&P Filed: 09/23/2024 08:40 Note Text: [facility] HISTORY AND PHYSICAL EXAMINATION SERVICE DATE: 09/23/2024 SERVICE TIME: 8:39 AM PRIMARY CARE PHYSICIAN: Cheryle Werner MD Assessment Patient has the following medical conditions which may affect jennifer-operative course: Migraine without aura and without status migrainosus, not intractable Assessment: otc analgesics as needed CHR LYMPHOCYT THYROIDIT Assessment: under surveillance TSH Date Value Ref Range Status 03/11/2024 1.640 0.270 - 4.200 mIU/L Final Comment: If the patient is , TSH reference range varies by gestational period: First Trimester (weeks 9-12): 0.180-2.990 mIU/L Second Trimester: 0.110-3.980 mIU/L Third Trimester: 0.480-4.710 mIU/L Dale Vicente et al. A Practical Approach for the Verifications and Determination of Site- and Trimester-Specific Reference Intervals for Thyroid Function tests in . Thyroid, 2019:29:3:412-420. Edgar E, et al. 2017 Guidelines of the [place] [employer] for the Diagnosis and Management of Thyroid Disease during and the . Thyroid, 2017:27:3:315-389. Multinodular goiter Assessment: denies compressive symptoms ANESTHESIA FINDINGS: Intubation History: No prior intubation Significant Anesthesia Considerations: none Airway History: No prior intubation Case Activity Status Index: METS: Climb a flight of stairs or walk up a hill (5.50 METs) DASI Score: 5.5 Patient denies any chest pain or undue shortness of breath with the above physical activity. Clinical Frailty Scale: 1. Very fit STOP-Bang Score: Denies snoring loudly Denies feeling tired, fatigued, or sleepy during the daytime Has not been observed to stop breathing or choking/gasping during sleep Denies having high blood pressure BMI less than or equal to 35 kg/m2 Patient 50 years old or younger Does not have a large neck Non-male patient STOP-Bang Score: 0 [id number] Score: Age: <65 Sex: female CHF history: No Hypertension history: No Stroke/TIA/thromboembolism history: No Vascular disease history: No Diabetes history: No [id number] Score: 1 ARISCAT Score: Age: <=50 Preoperative SpO2: >=96% Respiratory infection in the last month: No Preoperative anemia: No Surgical incision: peripheral Duration of surgery: <2 hrs Emergency procedure: No ARISCAT Score: 0 I - PHYSICAL EVALUATION AIRWAY Patient intubated: No. Tracheostomy tube not present Mallampati: I. TM distance: >3 FB. Neck ROM: full ROM without neurological symptoms. Mouth opening: adequate. Short neck: no. Thick neck: no Lux present: no Lip Bite Test: I Microretrognathia/Micronagt hia/Recessed Chin: No DENTAL Dental findings: teeth intact. Additional comments: +perm retainers. II - ANESTHESIA PLAN Anesthetic Plan: other Beta Joaquina Monitoring Plan Post Procedure Analgesic Plan Prepared for Surgery: optimally prepared for surgery. CONSULTS: Patient does not require consults for optimization at this time Planned Anesthetic: other anesthesia choice The Following Tests/Procedures Have Been Initiated: Orders Placed This Encounter Lactobacillus acidophilus (PROBIOTIC ORAL) Sig: Take by mouth. organ concentrates (ADRENAL ORAL) Sig: Take by mouth. REASON FOR VISIT: Sruthi Flowers is a 39 year old female who is scheduled for Procedure(s): LAPAROSCOPIC EXCISION CYST OVARIAN (Right) LAPAROSCOPIC OOPHORECTOMY (Right) at the request of Dr. Frances Trevizo for consultation. My final recommendation will be communicated back to the requesting physician by way of shared medical record or letter. Subjective The patient has the following: COVID-19 Immunization Status Completed or No Longer Recommended Covid-19 Vaccine (Series Information) Completed 04/17/2024 Imm Admin: COVID-19 vaccine, age 12+ yr (MODERNA) 04/26/2023 Imm Admin: COVID-19 vaccine, age 12+ yr, 2022- season (MODERNA) 05/11/2022 Imm Admin: COVID-19 vaccine, age 12+ yr, bivalent (MODERNA) Only the first 3 history entries have been loaded, but more history exists. CHIEF COMPLAINT: Pre-op exam HPI: Sruthi Flowers is a 39 year old seen for PAC due to scheduled above surgery because of an ovarian cyst. 08/20/2024, Dr. Frances Trevizo Please notify patient that cyst is overall stable- last time I saw her she did not want surgery. It has enlarged over the last 3 years- I am going to order CA 125 - does she want to consider laparoscopic removal of cyst? If not they are recommended repeat ultrasound 6 months. Left ovary still appears normal. REVIEW OF SYSTEMS: General: No weight loss, malaise or fevers. Neurological: Positive for: headaches (otc analgesics as needed). Respiratory: No histor (more content not included)... Normal [facility] CNPNon [facility]-14-2024 [facility] SRUTHI FLOWERS ([id number]) 1985 F Date Time Provider Department 09/14/24 FRANCES MOJICA During your visit today, we recorded the following information about you: Heather Gold LPN 09/15/2024 12:53 PM Signed Please approve surgery at [facility] on 10/04/24 Frances Mojica MD 09/15/2024 12:58 PM Addendum Signed. Allergies As of Date: 09/14/2024 Noted Allergy Reaction HORSE DANDER 07/15/2005 5 - Intolerance SEASONAL ALLERGIES 09/29/2006 5 - Intolerance Comments: Dogs, trees Date Reviewed: 07/05/2024 Reviewed by: Poonam Slater LPN - Fully Assessed Primary Visit Diagnosis:Ovarian cyst, right [N83.201] Order(s):SURGICAL REQUEST - ELECTIVE (02/2020) [[id number]] Order #: [id number]: 1 Prescriptions as of 09/15/2024 - TRI-SPRINTEC 0.18/0.215/0.25 mg-35 mcg (28) Take 1 tablet by mouth once daily. - fluticasone (FLONASE) 50 mcg/actuation nasal spray Use 1-2 Sprays in each nostril once daily. - ondansetron orally disintegrating (ZOFRAN ODT) 4 mg disintegrating tablet Take 1 tablet by mouth every 6 hours as needed for nausea/vomiting. - Xqtxbtn-Piimfhmxlyfia-Ugtvd ine (EXCEDRIN MIGRAINE) 250-250-65 mg per tablet Take 1 tablet by mouth every 6 hours as needed. (does not need often) - fexofenadine (MIGUEL) 180 mg tablet Take 1 tablet by mouth once daily. During allergy season - Cholecalciferol, Vitamin D3, 1,000 unit cap Take 1 capsule by mouth once daily. - VITAMIN C 1,000 MG TAB Take one(1) tablet daily. - MULTIVITAMIN TAB Take one(1) tablet daily. Problem List As Of Date 09/14/2024 Noted Resolved Other and unspecified chronic thyroiditis [E06.*01/29/2006 03/15/2016 CHR LYMPHOCYT THYROIDIT [E06.3] 01/29/2006 EXCESSIVE MENSTRUATION [N92.0] 07/28/2006 Allergic rhinitis [J30.9] 09/29/2006 Acute atopic conjunctivitis [H10.10] 11/21/2010 Migraine without aura and without status migrai*02/13/2017 Seasonal allergic rhinitis due to pollen [J30.1]09/16/2017 Multinodular goiter [E04.2] 02/15/2018 Allergic rhinitis due to animal hair and dander*10/14/2018 Encounter Status:Closed by HEATHER GOLD [facility]15/[facility] Tele[facility] (OBGYWM) SRUTHI FLOWERS ([id number]) 1985 F Date Time Provider Department 08/29/24 FRANCES MOJICA OBGYWM During your visit today, we recorded the following information about you: Asia Valdes RN 08/29/2024 8:36 AM Signed Patient called. She has decided that she would like to proceed with laparoscopic removal of cyst. Surgery sheet to DM to complete. Aware team leader surgery will call her in the next 1-2 weeks with the next available surgery dates. No upcoming vacations etc. RICHARD Norman Deidre, MD 08/29/2024 8:42 AM Signed OR booking sheet filled out. Bryanna Rutherford RN 08/29/2024 9:32 AM Signed Surgery sheet given to team leader surgeryLillian. Bryanna Rutherford RN Allergies As of Date: 08/29/2024 Noted Allergy Reaction HORSE DANDER 07/15/2005 5 - Intolerance SEASONAL ALLERGIES 09/29/2006 5 - Intolerance Comments: Dogs, trees Date Reviewed: 07/05/2024 Reviewed by: Poonam Slater LPN - Fully Assessed Reason for Visit: Preparations For Surgery [898] Prescriptions as of 08/31/2024 - fluticasone (FLONASE) 50 mcg/actuation nasal spray Use 1-2 Sprays in each nostril once daily. - ondansetron orally disintegrating (ZOFRAN ODT) 4 mg disintegrating tablet Take 1 tablet by mouth every 6 hours as needed for nausea/vomiting. - TRI-SPRINTEC 0.18/0.215/0.25 mg-35 mcg (28) Take 1 tablet by mouth once daily. - Aslccua-Homwbqqapjnec-Eztll ine (EXCEDRIN MIGRAINE) 250-250-65 mg per tablet Take 1 tablet by mouth every 6 hours as needed. (does not need often) - fexofenadine (MIGUEL) 180 mg tablet Take 1 tablet by mouth once daily. During allergy season - Cholecalciferol, Vitamin D3, 1,000 unit cap Take 1 capsule by mouth once daily. - VITAMIN C 1,000 MG TAB Take one(1) tablet daily. - MULTIVITAMIN TAB Take one(1) tablet daily. Problem List As Of Date 08/29/2024 Noted Resolved Other and unspecified chronic thyroiditis [E06.*01/29/2006 03/15/2016 CHR LYMPHOCYT THYROIDIT [E06.3] 01/29/2006 EXCESSIVE MENSTRUATION [N92.0] 07/28/2006 Allergic rhinitis [J30.9] 09/29/2006 Acute atopic conjunctivitis [H10.10] 11/21/2010 Migraine without aura and without status migrai*02/13/2017 Seasonal allergic rhinitis due to pollen [J30.1]09/16/2017 Multinodular goiter [E04.2] 02/15/2018 Allergic rhinitis due to animal hair and dander*10/14/2018 Encounter Status:Closed by ASIA VALDES on 08/31/24 [facility] 08-22-2024 [facility] Telephone (OBGYWM) SRUTHI FLOWERS ([id number]) 1985 F Date Time Provider Department 08/22/24 FRANCES MOJICA OBGYWAlejandro During your visit today, we recorded the following information about you: Asia Valdes RN 08/22/2024 8:58 AM Signed Left message for patient to call office. See below message from Dr. Trevizo regarding pelvic US. Asia Valdes, RICHARD Please notify patient that cyst is overall stable- last time I saw her she did not want surgery. It has enlarged over the last 3 years- I am going to order CA 125 - does she want to consider laparoscopic removal of cyst? If not they are recommended repeat ultrasound 6 months. Left ovary still appears normal. Asia Valdes RN 08/22/2024 4:53 PM Signed Patient notified. She had her CA 125 drawn - normal. Wants to think about surgery. Will call the office or let DM know at her upcoming appointment in September. Asia Valdes RN Allergies As of Date: 08/22/2024 Noted Allergy Reaction HORSE DANDER 07/15/2005 5 - Intolerance SEASONAL ALLERGIES 09/29/2006 5 - Intolerance Comments: Dogs, trees Date Reviewed: 07/05/2024 Reviewed by: Poonam Slater LPN - Fully Assessed Reason for Visit: Results [95] Prescriptions as of 08/22/2024 - fluticasone (FLONASE) 50 mcg/actuation nasal spray Use 1-2 Sprays in each nostril once daily. - ondansetron orally disintegrating (ZOFRAN ODT) 4 mg disintegrating tablet Take 1 tablet by mouth every 6 hours as needed for nausea/vomiting. - TRI-SPRINTEC 0.18/0.215/0.25 mg-35 mcg (28) Take 1 tablet by mouth once daily. - Pojykch-Wxrvfvkvyugjx-Jstrt ine (EXCEDRIN MIGRAINE) 250-250-65 mg per tablet Take 1 tablet by mouth every 6 hours as needed. (does not need often) - fexofenadine (MIGUEL) 180 mg tablet Take 1 tablet by mouth once daily. During allergy season - Cholecalciferol, Vitamin D3, 1,000 unit cap Take 1 capsule by mouth once daily. - VITAMIN C 1,000 MG TAB Take one(1) tablet daily. - MULTIVITAMIN TAB Take one(1) tablet daily. Problem List As Of Date 08/22/2024 Noted Resolved Other and unspecified chronic thyroiditis [E06.*01/29/2006 03/15/2016 CHR LYMPHOCYT THYROIDIT [E06.3] 01/29/2006 EXCESSIVE MENSTRUATION [N92.0] 07/28/2006 Allergic rhinitis [J30.9] 09/29/2006 Acute atopic conjunctivitis [H10.10] 11/21/2010 Migraine without aura and without status migrai*02/13/2017 Seasonal allergic rhinitis due to pollen [J30.1]09/16/2017 Multinodular goiter [E04.2] 02/15/2018 Allergic rhinitis due to animal hair and dander*10/14/2018 Encounter Status:Closed by ASIA VALDES on 08/22/[address] [facility] CA 125on 08-21-2024 Cancer Ag 125 Qn 5 [arb'U]/mL NINF - 39 U/mL [facility] Comment on above: CA 125 test methodol ogy used is the Electrochemiluminescence Immunoassay by [employer]. Results obtained with different methods or kits cannot be used interchangeably. The reference interval is based on the 95th percentile of 240 apparently healthy premenopausal and postmenopausal women. At a cutoff value of 65 U/mL, the test sensitivity to distinguish ovarian carcinoma (FIGO stage I to IV) versus benign gynecological disease is 79%, with a specificity of 82%. Reference: Cancer Antigen 125 (CA 125 II) [package insert V 1.0 [employer], [place], [place] (April 2015) Cancer Ag 125 Qnon Interpretation and review of laboratory results Normal [facility] Cancer Ag125 SerPl-aCncon Cancer Ag 125 Qn 5 [arb'U]/mL Normal <39 [facility] Comment on above: Order Comment: Speci men Type: BLOOD SPECIMENOrdering Facility: [facility] Address: [address] [place], [place] [address] Result Comment: CA 1 25 test methodology used is the Electrochemiluminescence Immunoassay by [employer]. Results obtained with different methods or kits cannot be used interchangeably. The reference interval is based on the 95th percentile of 240 apparently healthy premenopausal and postmenopausal women. At a cutoff value of 65 U/mL, the test sensitivity to distinguish ovarian carcinoma (FIGO stage I to IV) versus benign gynecological disease is 79%, with a specificity of 82%. Reference: Cancer Antigen 125 (CA 125 II) [package insert V 1.0 [employer], [place], [place] (April 2015) Performed By: #### 1 0334-1 ####[facility] LABCLIA [id number] [place] [address] [place] [facility] 08-17-2024 Indication 1 year follow up of right ovarian cyst Impression Normal appearing anteverted, right tilt uterus that measures 63 mm x 32 mm x 40 mm. Endometrium measures 2.6 mm. Normal appearing left ovary. Right ovary contains an 84 x 69 x 57 mm multilocular cyst with smooth inner wall/non-vascular septations. Estimated cyst volume is 173 cc compared to 94 cc on 09/02/2021. No adnexal masses were observed. There is no free fluid visualized in the peritoneal cavity. Comparison to ultrasound on 08/07/2023: Right ovary contained a 76 x 57 x 65 mm unilocular non-simple with two thin, avascular septations. Comparison to ultrasound on 08/15/2022: Right ovary contained a 72 x 53 x 64 mm unilocular non-simple cyst with two thin, avascular septations. Comparison to 09/02/2021: Right ovary contained a 68 x 47 x 56 mm unilocular simple cyst. Recommendations Persistent O-RADS 3 right ovarian lesion, non-simple cyst, almost certainly benign. Cyst has nearly doubled in volume in 3 years. If surgical intervention is not planned, recommend follow up ultrasound in 6 months. Menstrual History LMP on 07/26/2024. Contraception: combined oral contraceptive pill Method Transabdominal, transvaginal, 3D ultrasound examination, Color Doppler examination. View: Adequate visualization Uterus Uterus: Visualized Uterus position: anteverted, right tilt Description of uterine malformations: none Myometrium: heterogeneous Endometrium: normal Cervix details: normal Uterus length 63 mm Uterus width 40 mm Uterus height 32 mm Uterus Vol 41.4 cm Endometrial thickness, total 2.6 mm Fibroids: No fibroids identified Polyps: No polyps identified Right Ovary Rt ovary: Visualized Rt ovary D1 87 mm Rt ovary D2 73 mm Rt ovary D3 58 mm Rt ovary Vol 192.5 cm Rt ovarian cyst(s): Cysts identified Rt ovarian cyst D1 84 mm Rt ovarian cyst D2 69 mm Rt ovarian cyst D3 57 mm Rt ovarian cyst mean 70.0 mm Rt ovarian cyst vol 172.982 cm Rt ovarian cyst findings: Multilocular cyst with smooth inner wall/non-vascular septations Left Ovary Lt ovary: Visualized Lt ovary morphology: premenopausal normal follicular Lt ovary D1 22 mm Lt ovary D2 18 mm Lt ovary D3 11 mm Lt ovary Vol 2.2 cm [place] Sac Visualized. no free fluid visualized Performed By: Eufemia Stiles RDMS Read By: Tomasa Owen M.D. MATERNAL MEDICINE [facility] US [facility] 08-12-2024 Radiology Study observation (narrative) [facility] CBC W Ordered Manual Differe ntial panel (Bld)on 07-22-2024 Basophils (Bld) [#/Vol] 0.04 10*3/uL Normal <0.11 [facility] Comment on above: Order Comment: Speci men Type: BLOOD SPECIMENOrdering Facility: [facility] Address: [address] [place] [address] Performed By: #### S TFREV, 54504-6 ####[facility] LABCLIA [id number] [place] [address] [place] Basophils/100 WBC (Bld) 0.4 % Normal [facility] Comment on above: Order Comment: Speci men Type: BLOOD SPECIMENOrdering Facility: [facility] Address: [address] [place] [address] Performed By: #### S TFREV, 13592-1 ####[facility] LABCLIA [id number] [place] [address] [place] Differential cell count method Nom (Bld) Auto Normal [facility] Comment on above: Order Comment: Speci men Type: BLOOD SPECIMENOrdering Facility: [facility] Address: [address] [place] [address] Performed By: #### S TFREV, 89758-6 ####[facility] LABCLIA [id number] [place] [address] [place] Eosinophils (Bld) [#/Vol] 0.61 10*3/uL High <0.46 [facility] Comment on above: Order Comment: Speci men Type: BLOOD SPECIMENOrdering Facility: [facility] Address: [address] [place] [address] Performed By: #### S TFREV, 10127-0 ####[facility] LABCLIA [id number] [place] [address] [place] Eosinophils/100 WBC (Bld) 5.8 % Normal [facility] Comment on above: Order Comment: Speci men Type: BLOOD SPECIMENOrdering Facility: [facility] Address: [address] [place] [address] Performed By: #### S TFREV, 55211-8 ####[facility] LABCLIA [id number] [place] [address] [place] Erythrocyte distribution width (RBC) [Ratio] 12.5 % Normal 11.5-15.0 [facility] Comment on above: Order Comment: Speci men Type: BLOOD SPECIMENOrdering Facility: [facility] Address: [address] [place] [address] Performed By: #### S TFREV, 86169-8 ####[facility] LABCLIA [id number] [place] [address] [place] Hematocrit (Bld) [Volume fraction] 41.0 % Normal 36.0-46.0 [facility] Comment on above: Order Comment: Speci men Type: BLOOD SPECIMENOrdering Facility: [facility] Address: [address] [place] [address] Performed By: #### S TFREV, 46829-0 ####[facility] LABCLIA [id number] [place] [address] [place] Hemoglobin (Bld) [Mass/Vol] 13.6 g/dL Normal 11.5-15.5 [facility] Comment on above: Order Comment: Speci men Type: BLOOD SPECIMENOrdering Facility: [facility] Address: [address] [place] [address] Performed By: #### S TFREV, 89838-4 ####[facility] LABCLIA [id number] [place] [address] [place] Immature granulocytes (Bld) [#/Vol] 0.03 10*3/uL Normal <0.10 [facility] Comment on above: Order Comment: Speci men Type: BLOOD SPECIMENOrdering Facility: [facility] Address: [address] [place] [address] Performed By: #### S TFREV, 79351-3 ####[facility] LABCLIA [id number] [place] [address] [place] Immature granulocytes/100 WBC (Bld) 0.3 % Normal [facility] Comment on above: Order Comment: Speci men Type: BLOOD SPECIMENOrdering Facility: [facility] Address: [address] [place] [address] Performed By: #### S TFRCHAVEZ, 07846-6 ####[facility] LABIA [id number] [place] [address] [place] Lymphocytes (Bld) [#/Vol] 2.81 10*3/uL Normal 1.00-4.00 [facility] Comment on above: Order Comment: Speci men Type: BLOOD SPECIMENOrdering Facility: [facility] Address: [address] [place] [address] Performed By: #### S TFRCHAVEZ, 89886-6 ####[facility] LABCLIA [id number] [place] [address] [place] Lymphocytes/100 WBC (Bld) 26.8 % Normal [facility] Comment on above: Order Comment: Speci men Type: BLOOD SPECIMENOrdering Facility: [facility] Address: [address] [place] [address] Performed By: #### S TFREV, 22510-6 ####[facility] LABCLIA [id number] [place] [address] [place] MCH (RBC) [Entitic mass] 30.6 pg Normal 26.0-34.0 [facility] Comment on above: Order Comment: Speci men Type: BLOOD SPECIMENOrdering Facility: [facility] Address: [address] [place] [address] Performed By: #### S ZOHAIB, 34235-3 ####[facility] LABCLIA [id number] [place] [address] [place] MCHC (RBC) [Mass/Vol] 33.2 g/dL Normal 30.5-36.0 [facility] Comment on above: Order Comment: Speci men Type: BLOOD SPECIMENOrdering Facility: [facility] Address: [address] [place] [address] Performed By: #### S ZOHAIB, 44204-4 ####[facility] LABCLIA [id number] [place] [address] [place] MCV (RBC) [Entitic vol] 92.1 fL Normal 80.0-100.0 [facility] Comment on above: Order Comment: Speci men Type: BLOOD SPECIMENOrdering Facility: [facility] Address: [address] [place] [address] Performed By: #### S ZOHAIB, 88860-2 ####[facility] LABIA [id number] [place] [address] [place] Monocytes (Bld) [#/Vol] 0.42 10*3/uL Normal <0.87 [facility] Comment on above: Order Comment: Speci men Type: BLOOD SPECIMENOrdering Facility: [facility] Address: [address] [place] [address] Performed By: #### S ZOHAIB, 50188-2 ####[facility] LABCLIA [id number] [place] [address] [place] Monocytes/100 WBC (Bld) 4.0 % Normal [facility] Comment on above: Order Comment: Speci men Type: BLOOD SPECIMENOrdering Facility: [facility] Address: [address] [place] [address] Performed By: #### S TFREV, 85017-5 ####[facility] LABCLIA [id number] [place] [address] [place] Neutrophils (Bld) [#/Vol] 6.56 10*3/uL Normal 1.45-7.50 [facility] Comment on above: Order Comment: Speci men Type: BLOOD SPECIMENOrdering Facility: [facility] Address: [address] [place] [address] Performed By: #### S TFREV, 04770-3 ####[facility] LABCLIA [id number] [place] [place] [address] [place] Neutrophils/100 WBC (Bld) 62.7 % Normal [facility] Comment on above: Order Comment: Speci men Type: BLOOD SPECIMENOrdering Facility: [facility] Address: [address] [place] [address] Performed By: #### S TFREV, 80703-2 ####[facility] LABCLIA [id number] [place] [address] [place] Nucleated RBC (Bld) [#/Vol] 10*3/uL Normal <0.01 [facility] Comment on above: Order Comment: Speci men Type: BLOOD SPECIMENOrdering Facility: [facility] Address: [address] [place] [address] Performed By: #### S TFREV, 10841-0 ####[facility] LABCLIA [id number] [place] [address] [place] Nucleated RBC/100 WBC (Bld) [Ratio] 0.0 /[address] [facility] Comment on above: Order Comment: Speci men Type: BLOOD SPECIMENOrdering Facility: [facility] Address: [address] [place] [address] Performed By: #### S TFREV, 46841-4 ####[facility] LABCLIA [id number] [address] [address] [place] Platelet mean volume (Bld) [Entitic vol] 10.9 fL Normal 9.0-12.7 [facility] Comment on above: Order Comment: Speci men Type: BLOOD SPECIMENOrdering Facility: [facility] Address: [address] [place] [address] Performed By: #### S TFRCHAVEZ, 14031-4 ####[facility] LABIA [id number] [place] [address] [place] Platelets (Bld) [#/Vol] 389 10*3/uL Normal 150-400 [facility] Comment on above: Order Comment: Speci men Type: BLOOD SPECIMENOrdering Facility: [facility] Address: [address] [place] [address] Performed By: #### S TFRCHAVEZ, 83602-1 ####[facility] LABIA [id number] [place] [address] [place] RBC (Bld) [#/Vol] 4.45 10*6/uL Normal 3.90-5.20 [facility] Comment on above: Order Comment: Speci men Type: BLOOD SPECIMENOrdering Facility: [facility] Address: [address] [place] [address] Performed By: #### S TFRCHAVEZ, 69147-9 ####[facility] LABIA [id number] [place] [address] [place] WBC (Bld) [#/Vol] 10.47 10*3/uL Normal 3.70-11.00 [facility] Comment on above: Order Comment: Speci men Type: BLOOD SPECIMENOrdering Facility: [facility] Address: [address] [place] [address] Performed By: #### S TFRCHAVEZ, 13932-2 ####[facility] LABIA [id number] [address] PATHOLOGIST INTERPRETATION C BC/DIFFon 07-22-2024 [place] [employer] Maker review Kayden (Unsp spec) [Interp] No review performed. Normal [facility] Comment on above: Order Comment: Speci men Type: BLOOD SPECIMENOrdering Facility: [facility] Address: [address] [place] [address] Performed By: #### S ZOHAIB, 39562-9 ####[facility] LABCLIA [id number] [address] STAFF REVIEW, CBCDIF Normal [facility] Comment on above: Order Comment: Speci men Type: BLOOD SPECIMENOrdering Facility: [facility] Address: [address] [place] [address] Result Comment: The Pathologist Interpretation on this sample was cancelled because the hematology analyzer did not flag any parameters as requiring manual review. If there is a specific clinical concern for which you would like a pathologist to review the blood smear, please call Lab Client Services within 28 days. Performed By: #### S ZOHAIB, 13220-8 ####[facility] LABCLIA [id number] [address] CNOVon 07-05-2024 CNOV Office Visit (WSTR ) SRUTHI FLOWERS ([id number]) 1985 F Date Time Provider Department 07/05/24 8:30 AM CARLOZ WILLIS RUST During your visit today, we recorded the following information about you: Temperature Pulse Respiration Blood pressure 97.4 degrees 102/minute 18/minute 138/98 Weight Last Period 67.1 kg 06/28/24 Carloz Willis PA-C 07/05/2024 8:49 AM Signed This note was created using [employer]. Subjective Sruthi Flowers is a 39 year old female. Patient is a 39-year-old female complains of ongoing and worsening congestion, sinus pressure, ear pain and throat irritation that she has been experiencing for the past 1 month. Patient reports a slight, irritating cough. Patient denies fever, chills or myalgia. Patient is experiencing increasing frontal and facial headaches. Patient has a history of recurrent sinus infections and states that her current symptoms are consistent with same. Patient has been using orch-ucu-[id number] medications with no improvement in her symptoms. Review of Systems HENT: Positive for congestion, postnasal drip, sinus pressure and sinus pain. Respiratory: Positive for cough. Neurological: Positive for headaches. All other systems reviewed and are negative. Objective BP 138/98 Pulse 102 Temp 36.3 ?C (97.4 ?F) Resp 18 Wt 67.1 kg (147 lb 14.9 oz) LMP 06/28/2024 (Exact Date) SpO2 99% BMI 25.00 kg/m? Physical Exam Vitals and nursing note reviewed. Constitutional: Appearance: Normal appearance. She is normal weight. HENT: Head: Normocephalic and atraumatic. Right Ear: Tympanic membrane, ear canal and external ear normal. Left Ear: Tympanic membrane, ear canal and external ear normal. Nose: Nose normal. Mouth/Throat: Mouth: Mucous membranes are moist. Pharynx: Oropharynx is clear. Eyes: Extraocular Movements: Extraocular movements intact. Conjunctiva/sclera: Conjunctivae normal. Pupils: Pupils are equal, round, and reactive to light. Cardiovascular: Rate and Rhythm: Normal rate and regular rhythm. Pulses: Normal pulses. Heart sounds: Normal heart sounds. Pulmonary: Effort: Pulmonary effort is normal. Breath sounds: Normal breath sounds. Musculoskeletal: Cervical back: Normal range of motion and neck supple. Skin: General: Skin is warm and dry. Capillary Refill: Capillary refill takes less than 2 seconds. Neurological: General: No focal deficit present. Mental Status: She is alert and oriented to person, place, and time. Psychiatric: Mood and Affect: Mood normal. Behavior: Behavior normal. Thought Content: Thought content normal. Judgment: Judgment normal. Assessment and Plan Physical exam findings as noted above. Patient was provided with a prescription for Augmentin 875-125 mg and supportive care instructions were discussed. Patient verbalizes excellent understanding of same. CLINICAL IMPRESSION: Acute Sinusitis ASSESSMENT/PLAN: 1. Acute recurrent sinusitis, unspecified location - ICD9: 461.9, ICD10: J01.91 - AMOXICILLIN 875 MG-POTASSIUM CLAVULANATE 125 MG TABLET Carloz CONNIE Willis Allergies As of Date: 07/05/2024 Noted Allergy Reaction HORSE DANDER 07/15/2005 5 - Intolerance SEASONAL ALLERGIES 09/29/2006 5 - Intolerance Comments: Dogs, trees Date Reviewed: 07/05/2024 Reviewed by: Poonam Slater LPN - Fully Assessed Reason for Visit: Pain, Sinus [857] Cmt: Pressure and pain in head and ears, low grade fevers, headache x 1 month Primary Visit Diagnosis:Acute recurrent sinusitis, unspecified location [J01.91] Order(s):amoxicillin-clavul anate potassium (AUGMENTIN) 875-125 mg per tabletTake 1 tablet by mouth two times a day for 10 days.Disp: 20 tabletRfl: 0 Prescriptions as of 07/05/2024 - amoxicillin-clavulanate potassium (AUGMENTIN) 875-125 mg per tablet Take 1 tablet by mouth two times a day for 10 days. - fluticasone (FLONASE) 50 mcg/actuation nasal spray Use 1-2 Sprays in each nostril once daily. - ondansetron orally disintegrating (ZOFRAN ODT) 4 mg disintegrating tablet Take 1 tablet by mouth every 6 hours as needed for nausea/vomiting. - TRI-SPRINTEC 0.18/0.215/0.25 mg-35 mcg (28) Take 1 tablet by mouth once daily. - Urktrkp-Fxtureujwgxfe-Ozzxa ine (EXCEDRIN MIGRAINE) 250-250-65 mg per tablet Take 1 tablet by mouth every 6 hours as needed. (does not need often) - fexofenadine (MIGUEL) 180 mg tablet Take 1 tablet by mouth once daily. During allergy season - Cholecalciferol, Vitamin D3, 1,000 unit cap Take 1 capsule by mouth once daily. - VITAMIN C 1,000 MG TAB Take one(1) tablet daily. - MULTIVITAMIN TAB Take one(1) tablet daily. Problem List As Of Date 07/05/2024 Noted Resolved Other and unspecified chronic thyroiditis [E06.*01/29/2006 03/15/2016 CHR LYMPHOCYT THYROIDIT [E06.3] 01/29/2006 EXCESSIVE MENSTRUATION [N92.0] 07/28/2006 Allergic rhinitis [J30.9] 09/29/2006 (more content not included)... Normal [facility] CBC W Auto Differential pane l (Bld)on 06-27-2024 Basophils (Bld) [#/Vol] 0.06 10*3/uL Normal <0.11 [facility] Comment on above: Order Comment: Speci men Type: BLOOD SPECIMENOrdering Facility: [facility] Address: [address] [place] [address] Performed By: #### 5 7021-8 ####[facility] LABCLIA [id number] [place] [address] [place] Basophils/100 WBC (Bld) 0.7 % Normal [facility] Comment on above: Order Comment: Speci men Type: BLOOD SPECIMENOrdering Facility: [facility] Address: [address] [place] [address] Performed By: #### 5 7021-8 ####[facility] LABCLIA [id number] [place] [address] [place] Differential cell count method Nom (Bld) Auto Normal [facility] Comment on above: Order Comment: Speci men Type: BLOOD SPECIMENOrdering Facility: [facility] Address: [address] [place] [address] Performed By: #### 5 7021-8 ####[facility] LABCLIA [id number] [place] [address] [place] Eosinophils (Bld) [#/Vol] 0.98 10*3/uL High <0.46 [facility] Comment on above: Order Comment: Speci men Type: BLOOD SPECIMENOrdering Facility: [facility] Address: [address] [place] [address] Performed By: #### 5 7021-8 ####[facility] LABCLIA [id number] [place] [address] [place] Eosinophils/100 WBC (Bld) 11.3 % Normal [facility] Comment on above: Order Comment: Speci men Type: BLOOD SPECIMENOrdering Facility: [facility] Address: [address] [place] [address] Performed By: #### 5 7021-8 ####[facility] LABCLIA [id number] [place] [address] [place] Erythrocyte distribution width (RBC) [Ratio] 12.6 % Normal 11.5-15.0 [facility] Comment on above: Order Comment: Speci men Type: BLOOD SPECIMENOrdering Facility: [facility] Address: [address] [place] [address] Performed By: #### 5 7021-8 ####[facility] LABCLIA [id number] [place] [address] [place] Hematocrit (Bld) [Volume fraction] 41.3 % Normal 36.0-46.0 [facility] Comment on above: Order Comment: Speci men Type: BLOOD SPECIMENOrdering Facility: [facility] Address: [address] [place] [address] Performed By: #### 5 7021-8 ####[facility] LABCLIA [id number] [place] [address] [place] Hemoglobin (Bld) [Mass/Vol] 13.9 g/dL Normal 11.5-15.5 [facility] Comment on above: Order Comment: Speci men Type: BLOOD SPECIMENOrdering Facility: [facility] Address: [address] [place] [address] Performed By: #### 5 7021-8 ####[facility] LABCLIA [id number] [place] [address] [place] Immature granulocytes (Bld) [#/Vol] 0.03 10*3/uL Normal <0.10 [facility] Comment on above: Order Comment: Speci men Type: BLOOD SPECIMENOrdering Facility: [facility] Address: [address] [place] [address] Performed By: #### 5 7021-8 ####[facility] LABCLIA [id number] [place] [address] [place] Immature granulocytes/100 WBC (Bld) 0.3 % Normal [facility] Comment on above: Order Comment: Speci men Type: BLOOD SPECIMENOrdering Facility: [facility] Address: [address] [place] [address] Performed By: #### 5 7021-8 ####[facility] LABCLIA [id number] [place] [address] [place] Lymphocytes (Bld) [#/Vol] 1.98 10*3/uL Normal 1.00-4.00 [facility] Comment on above: Order Comment: Speci men Type: BLOOD SPECIMENOrdering Facility: [facility] Address: [address] [place] [address] Performed By: #### 5 7021-8 ####[facility] LABCLIA [id number] [place] [address] [place] Lymphocytes/100 WBC (Bld) 22.8 % Normal [facility] Comment on above: Order Comment: Speci men Type: BLOOD SPECIMENOrdering Facility: [facility] Address: [address] [place] [address] Performed By: #### 5 7021-8 ####[facility] LABCLIA [id number] [place] [address] [place] MCH (RBC) [Entitic mass] 30.8 pg Normal 26.0-34.0 [facility] Comment on above: Order Comment: Speci men Type: BLOOD SPECIMENOrdering Facility: [facility] Address: [address] [place] [address] Performed By: #### 5 7021-8 ####[facility] LABCLIA [id number] [place] [address] [place] MCHC (RBC) [Mass/Vol] 33.7 g/dL Normal 30.5-36.0 [facility] Comment on above: Order Comment: Speci men Type: BLOOD SPECIMENOrdering Facility: [facility] Address: [address] [place] [address] Performed By: #### 5 7021-8 ####[facility] LABIA [id number] [place] [address] [place] MCV (RBC) [Entitic vol] 91.4 fL Normal 80.0-100.0 [facility] Comment on above: Order Comment: Speci men Type: BLOOD SPECIMENOrdering Facility: [facility] Address: [address] [place] [address] Performed By: #### 5 7021-8 ####[facility] LABIA [id number] [place] [address] [place] Monocytes (Bld) [#/Vol] 0.48 10*3/uL Normal <0.87 [facility] Comment on above: Order Comment: Speci men Type: BLOOD SPECIMENOrdering Facility: [facility] Address: [address] [place] [address] Performed By: #### 5 7021-8 ####[facility] LABIA [id number] [place] [address] [place] Monocytes/100 WBC (Bld) 5.5 % Normal [facility] Comment on above: Order Comment: Speci men Type: BLOOD SPECIMENOrdering Facility: [facility] Address: [address] [place] [address] Performed By: #### 5 7021-8 ####[facility] LABIA [id number] [place] [address] [place] Neutrophils (Bld) [#/Vol] 5.15 10*3/uL Normal 1.45-7.50 [facility] Comment on above: Order Comment: Speci men Type: BLOOD SPECIMENOrdering Facility: [facility] Address: [address] [place] [address] Performed By: #### 5 7021-8 ####[facility] LABCLIA [id number] [place] [address] [place] Neutrophils/100 WBC (Bld) 59.4 % Normal [facility] Comment on above: Order Comment: Speci men Type: BLOOD SPECIMENOrdering Facility: [facility] Address: [address] [place] [address] Performed By: #### 5 7021-8 ####[facility] LABIA [id number] [place] [address] [place] Nucleated RBC (Bld) [#/Vol] 10*3/uL Normal <0.01 [facility] Comment on above: Order Comment: Speci men Type: BLOOD SPECIMENOrdering Facility: [facility] Address: [address] [place] [address] Performed By: #### 5 7021-8 ####[facility] LABIA [id number] [place] [address] [place] Nucleated RBC/100 WBC (Bld) [Ratio] 0.0 /[address] [facility] Comment on above: Order Comment: Speci men Type: BLOOD SPECIMENOrdering Facility: [facility] Address: [address] [place] [address] Performed By: #### 5 7021-8 ####[facility] LABCLIA [id number] [place] [address] [place] Platelet mean volume (Bld) [Entitic vol] 10.5 fL Normal 9.0-12.7 [facility] Comment on above: Order Comment: Speci men Type: BLOOD SPECIMENOrdering Facility: [facility] Address: [address] [place] [address] Performed By: #### 5 7021-8 ####[facility] LABIA [id number] [place] [address] [place] Platelets (Bld) [#/Vol] 412 10*3/uL High 150-400 [facility] Comment on above: Order Comment: Speci men Type: BLOOD SPECIMENOrdering Facility: [facility] Address: [address] [place] [address] Performed By: #### 5 7021-8 ####[facility] [id number] [place] [address] [place] RBC (Bld) [#/Vol] 4.52 10*6/uL Normal 3.90-5.20 [facility] Comment on above: Order Comment: Speci men Type: BLOOD SPECIMENOrdering Facility: [facility] Address: [address] [place] [address] Performed By: #### 5 7021-8 ####[facility] [id number] [place] [address] [place] WBC (Bld) [#/Vol] 8.68 10*3/uL Normal 3.70-11.00 [facility] Comment on above: Order Comment: Speci men Type: BLOOD SPECIMENOrdering Facility: [facility] Address: [address] [place] [address] Performed By: #### 5 7021-8 ####[facility] [id number] [place] [id number] [place] CNOVon 06-27-2024 CNOV Office Visit (INTMWS ) SRUTHI FLOWERS ([id number]) 1985 F Date Time Provider Department 06/27/24 8:20 AM FILOMENA CASTORENA INTMWS During your visit today, we recorded the following information about you: Pulse Respiration Blood pressure Weight 72/minute 14/minute 120/78 67.8 kg Filomena Castorena, [facility] [employer].[facility] 06/27/2024 8:42 AM Signed CC: Patient presents with: Mass: LT neck and RT groin x 3 weeks HPI Sruthi Flowers is a 39 year old female who presents today for above. She developed fatigue and chills one evening a few weeks ago, the next day she noticed the lymph nodes on the left side of her neck were painful and swollen. Symptoms resolved that day except the nodes remained swollen. They are no longer painful now but have not decreased in size. She also noticed a swollen node in the right groin around the same time. Overall she is feeling really well, see ROS. Review of Systems Constitutional: Negative for activity change, appetite change, chills, diaphoresis, fatigue, fever and unexpected weight change. HENT: Negative for congestion, ear pain, postnasal drip, rhinorrhea, sinus pressure, sinus pain, sneezing, sore throat, trouble swallowing and voice change. Respiratory: Negative for cough, shortness of breath and wheezing. Cardiovascular: Negative for chest pain, palpitations and leg swelling. Gastrointestinal: Negative for abdominal distention, abdominal pain, blood in stool, constipation, diarrhea, nausea and vomiting. Genitourinary: Negative for decreased urine volume, difficulty urinating, dysuria, frequency, hematuria, pelvic pain, urgency and vaginal discharge. Musculoskeletal: Negative for arthralgias, back pain, joint swelling, myalgias and neck pain. Skin: Negative for pallor and rash. Allergic/Immunologic: Negative for environmental allergies and immunocompromised state. Neurological: Negative for weakness. Hematological: Does not bruise/bleed easily. PAST MEDICAL HISTORY Diagnosis Date Allergic rhinitis, cause unspecified Chronic lymphocytic thyroiditis Excessive or frequent menstruation WITH IRREGULAR PERIODS Irregular menstrual cycle Migraine without aura and without status migrainosus, not intractable 02/13/2017 jagdeep aura; not often now. Mostly tension headaches Syncope and collapse LIFETIME VASO VAGAL SYNDROME PAST SURGICAL HISTORY Procedure Laterality Date NONE ALLERGIES Horse Dander and Seasonal Allergies MEDICATIONS fluticasone (FLONASE) 50 mcg/actuation nasal spray Use 1-2 Sprays in each nostril once daily. ondansetron orally disintegrating (ZOFRAN ODT) 4 mg disintegrating tablet Take 1 tablet by mouth every 6 hours as needed for nausea/vomiting. TRI-SPRINTEC 0.18/0.215/0.25 mg-35 mcg (28) Take 1 tablet by mouth once daily. Nskuans-Axwxyrbimigqf-Rjtnf ine (EXCEDRIN MIGRAINE) 250-250-65 mg per tablet Take 1 tablet by mouth every 6 hours as needed. (does not need often) fexofenadine (MIGUEL) 180 mg tablet Take 1 tablet by mouth once daily. During allergy season Cholecalciferol, Vitamin D3, 1,000 unit cap Take 1 capsule by mouth once daily. VITAMIN C 1,000 MG TAB Take one(1) tablet daily. MULTIVITAMIN TAB Take one(1) tablet daily. FAMILY HISTORY Problem Relation Age of Onset Heart Mother IRREGULAR HEART BEAT/ heart virus Melanoma Father other (CONNECTIVE TISSUE DISEASE) Brother Hypertension Brother Prostate Cancer Paternal Grandfather Cancer Paternal Aunt Rectal with mets Cancer Paternal Uncle Social History Tobacco Use Smoking status: Never Smokeless tobacco: Never Vaping Use Vaping status: Never Used Substance Use Topics Alcohol use: Yes Comment: One to Two Times Per Month Drug use: No BP 120/78 Pulse 72 Resp 14 Wt 67.8 kg (149 lb 7.6 oz) LMP 02/09/2023 (Approximate) SpO2 96% BMI 25.26 kg/m? Physical Exam Vitals reviewed. Constitutional: General: She is not in acute distress. Appearance: Normal appearance. She is not ill-appearing or toxic-appearing. HENT: Head: Normocephalic and atraumatic. Right Ear: Tympanic membrane normal. Left Ear: Tympanic membrane normal. Nose: No mucosal edema, congestion or rhinorrhea. Right Sinus: No maxillary sinus tenderness or frontal sinus tenderness. Left Sinus: No maxillary sinus tenderness or frontal sinus tenderness. Mouth/Throat: Lips: [place]. Mouth: Mucous membranes are moist. Pharynx: Oropharynx is clear. Eyes: Conjunctiva/sclera: Conjunctivae normal. Neck: Thyroid: No thyroid mass, thyromegaly or thyroid tenderness. Cardiovascular: Rate and Rhythm: Normal rate and regular rhythm. Pulses: Normal pulses. Heart sounds: Normal heart sounds. No murmur heard. Pulmonary: Effort: Pulmonary effort is normal. Breath sounds: Normal breath sounds. No wheezing, rhonchi or rales. Abdominal: General: Bowel sounds are normal. There is n (more content not included)... Normal [facility] Comprehensive metabolic 2000 panelon 06-27-2024 Albumin [Mass/Vol] 3.9 g/dL Normal 3.9-4.9 [facility] Comment on above: Order Comment: Speci men Type: BLOOD SPECIMENOrdering Facility: [facility] Address: [address] [place] [address] Performed By: #### 2 4323-8 ####[facility] LABCLIA [id number] [place] [address] [place] ALP [Catalytic activity/Vol] 55 U/L Normal 34-123 [facility] Comment on above: Order Comment: Speci men Type: BLOOD SPECIMENOrdering Facility: [facility] Address: [address] [place] [address] Performed By: #### 2 4323-8 ####[facility] LABCLIA [id number] [place] [address] [place] ALT [Catalytic activity/Vol] 13 U/L Normal 7-38 [facility] Comment on above: Order Comment: Speci men Type: BLOOD SPECIMENOrdering Facility: [facility] Address: [address] [place] [address] Performed By: #### 2 4323-8 ####[facility] LABCLIA [id number] [place] [id number] [place] Anion gap [Moles/Vol] 9 mmol/L Normal 8-15 [facility] Comment on above: Order Comment: Speci men Type: BLOOD SPECIMENOrdering Facility: [facility] [facility] Address: [address] [place] [address] Performed By: #### 2 4323-8 ####[facility] LABCLIA [id number] [place] [address] [place] AST [Catalytic activity/Vol] 20 U/L Normal 13-35 [facility] Comment on above: Order Comment: Speci men Type: BLOOD SPECIMENOrdering Facility: [facility] Address: [address] [place] [address] Performed By: #### 2 4323-8 ####[facility] LABCLIA [id number] [place] [address] [place] Bilirubin [Mass/Vol] mg/dL Low 0.2-1.3 [facility] Comment on above: Order Comment: Speci men Type: BLOOD SPECIMENOrdering Facility: [facility] Address: [address] [place] [address] Performed By: #### 2 4323-8 ####[facility] LABCLIA [id number] [place] [address] [place] Calcium [Mass/Vol] 9.6 mg/dL Normal 8.5-10.2 [facility] Comment on above: Order Comment: Speci men Type: BLOOD SPECIMENOrdering Facility: [facility] Address: [address] [place] [address] Performed By: #### 2 4323-8 ####[facility] LABCLIA [id number] [place] [address] [place] Chloride [Moles/Vol] 105 mmol/L Normal 98-107 [facility] Comment on above: Order Comment: Speci men Type: BLOOD SPECIMENOrdering Facility: [facility] Address: [address] [place] [address] Performed By: #### 2 4323-8 ####[facility] LABCLIA [id number] [place] [address] [place] CO2 [Moles/Vol] 26 mmol/L Normal 22-30 [facility] Comment on above: Order Comment: Speci men Type: BLOOD SPECIMENOrdering Facility: [facility] Address: [address] [place] [address] Performed By: #### 2 4323-8 ####[facility] LABCLIA [id number] [address] [address] [place] Creatinine [Mass/Vol] 0.69 mg/dL Normal 0.58-0.96 [facility] Comment on above: Order Comment: Reji epstein Type: BLOOD SPECIMENOrdering Facility: [facility] Address: [address] [place] [address] Performed By: #### 2 4323-8 ####[facility] LABCLIA [id number] [place] [address] [place] Creatinine and Glomerular filtration rate.predicted panel (S/P/Bld) 114 mL/min/1.73m??? Normal >=60 [facility] Comment on above: Order Comment: Reji epstein Type: BLOOD SPECIMENOrdering Facility: [facility] Address: [address] [place] [address] Result Comment: Maru mated Glomerular Filtration Rate (eGFR) is calculated using the 2020 CKD-EPI creatinine equation. This equation utilizes serum creatinine, sex, and age as parameters. The creatinine assay has traceable calibration to isotope dilution-mass spectrometry. Refer to KDIGO guidelines for clinical interpretation. In patients with unstable renal function, e.g. those with acute kidney injury, the eGFR may not accurately reflect actual GFR. Performed By: #### 2 4323-8 ####[facility] LABIA [id number] [place] [address] [place] Glucose [Mass/Vol] 91 mg/dL Normal 74-99 [facility] Comment on above: Order Comment: Pedroi men Type: BLOOD SPECIMENOrdering Facility: [facility] Address: [address] [place] [address] Result Comment: The [place] Diabetes Association (ADA) provides guidance for cutoff values for fasting glucose and random glucose. The ADA defines fasting as no caloric intake for at least 8 hours. Fasting plasma glucose results between 100 to 125 mg/dL indicate increased risk for diabetes (prediabetes). Fasting plasma glucose results greater than or equal to 126 mg/dL meet the criteria for diagnosis of diabetes. In the absence of unequivocal hyperglycemia, results should be confirmed by repeat testing. In a patient with classic symptoms of hyperglycemia or hyperglycemic crisis, random plasma glucose results greater than or equal to 200 mg/dL meet the criteria for diagnosis of diabetes. Reference: Standards of Medical Care in Diabetes 2016, [place] Diabetes Association. Diabetes Care. 2016.39(Suppl 1). Performed By: #### 2 4323-8 ####[facility] LABCLIA [id number] [place] [address] [place] Potassium [Moles/Vol] 4.4 mmol/L Normal 3.7-5.1 [facility] Comment on above: Order Comment: Speci men Type: BLOOD SPECIMENOrdering Facility: [facility] Address: [address] [place] [address] Performed By: #### 2 4323-8 ####[facility] LABCLIA [id number] [place] [address] [place] Protein [Mass/Vol] 6.7 g/dL Normal 6.3-8.0 [facility] Comment on above: Order Comment: Pedroi men Type: BLOOD SPECIMENOrdering Facility: [facility] Address: [address] [place] [address] Performed By: #### 2 4323-8 ####[facility] LABCLIA [id number] [place] [address] [place] Sodium [Moles/Vol] 140 mmol/L Normal 136-144 [facility] Comment on above: Order Comment: Speci men Type: BLOOD SPECIMENOrdering Facility: [facility] Address: [address] [place] [address] Performed By: #### 2 4323-8 ####[facility] LABCLIA [id number] [place] [address] [place] Urea nitrogen [Mass/Vol] 11 mg/dL Normal 7-21 [facility] Comment on above: Order Comment: Speci men Type: BLOOD SPECIMENOrdering Facility: [facility] Address: [address] [place] [address] Performed By: #### 2 4323-8 ####[facility] LABGINA [id number] [address] [place] [id number] [address] [place] CNOVon 03-11-2024 CNOV Office Visit (INTMWS ) SRUTHI FLOWERS ([id number]) 1985 F Date Time Provider Department 03/11/24 9:00 AM CHERYLE WERNER INTMWS During your visit today, we recorded the following information about you: Pulse Respiration Blood pressure Weight 70/minute 12/minute 134/64 63.4 kg Height 1.638 m Cheryle Werner MD 03/11/2024 10:10 AM Signed This note was created using [employer]. Subjective Sruthi Flowers is a 38 year old female. HISTORY Sruthi Flowers is a 38 year old lady here for yearly exam and follow up appointment. Patient is a 38-year-old female presenting today for yearly exam and follow up. Present with increased frequency of migraines, now occurring 1-2 times per month. She describes the migraines as severe, with associated nausea and head pounding, but denies photophobia. She is able to function through the migraines, but they are described as pretty bad. She has been using Excedrin to manage the migraines and tries to nip them before they get really bad, but sometimes wakes up with them. She has previously used Zofran for nausea associated with migraines, but has run out and is requesting a refill. She denies any obvious triggers for the migraines, but suspects dehydration and stress may be contributing factors. 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 She tries to rehydrate after work. She denies any changes in family history and has 4 brothers and 1 sister. She denies any symptoms of hypothyroidism. PAST MEDICAL HISTORY No date: Allergic rhinitis, cause unspecified No date: Chronic lymphocytic thyroiditis No date: Excessive or frequent menstruation Comment: WITH IRREGULAR PERIODS No date: Irregular menstrual cycle 02/13/2017: Migraine without aura and without status migrainosus, not intractable Comment: jagdeep aura; not often now. Mostly tension headaches LIFETIME: Syncope and collapse Comment: VASO VAGAL SYNDROME Current Outpatient Medications Medication Sig TRI-SPRINTEC 0.18/0.215/0.25 mg-35 mcg (28) Take 1 tablet by mouth once daily. fluticasone (FLONASE) 50 mcg/actuation nasal spray Use 1-2 Sprays in each nostril once daily. Scfktmy-Dfwbozqrlaovd-Jsjrb ine (EXCEDRIN MIGRAINE) 250-250-65 mg per tablet Take 1 tablet by mouth every 6 hours as needed. (does not need often) fexofenadine (MIGUEL) 180 mg tablet Take 1 tablet by mouth once daily. During allergy season Cholecalciferol, Vitamin D3, 1,000 unit cap Take 1 capsule by mouth once daily. VITAMIN C 1,000 MG TAB Take one(1) tablet daily. MULTIVITAMIN TAB Take one(1) tablet daily. No current facility-administered medications for this visit. ALLERGIES Allergen Reactions Horse Dander Intolerance Seasonal Allergies Intolerance Dogs, trees FAMILY HISTORY Problem Relation Age of Onset Heart Mother IRREGULAR HEART BEAT/ heart virus Melanoma Father other (CONNECTIVE TISSUE DISEASE) Brother Hypertension Brother Prostate Cancer Paternal Grandfather Cancer Paternal Aunt Rectal with mets Cancer Paternal Uncle Social History Tobacco Use Smoking status: Never Smokeless tobacco: Never Vaping Use Vaping status: Never Used Substance Use Topics Alcohol use: Yes Comment: One to Two Times Per Month Drug use: No Review of Systems Objective BP 134/64 (BP Site: Left Arm, BP Position: Sitting, BP Cuff Size: Regular Adult) Pulse 70 Resp 12 Ht 163.8 cm (5' 4.5) Wt 63.4 kg (139 lb 12.4 oz) LMP 02/09/2023 (Approximate) SpO2 100% BMI 23.62 kg/m? Last 5 Encounter Wt Readings: Date: Wt: 03/11/2024 63.4 kg (139 lb 12.4 oz) 09/28/2023 67.6 kg (149 lb) 06/27/2023 68.1 kg (150 lb 3.2 oz) 03/02/2023 66.2 kg (146 lb) 09/15/2022 67.1 kg (148 lb) No waist measurement recorded Estimated body mass index is 23.62 kg/m? as calculated from the following: Height as of this encounter: 163.8 cm (5' 4.5). Weight as of this encounter: 63.4 kg (139 lb 12.4 oz). Last 5 Encounter BP Readings: Date: BP: 03/11/2024 134/64 09/28/2023 134/82 06/27/2023 162/109 03/02/2023 120/78 09/15/2022 126/74 Physical Exam Vitals reviewed. Constitutional: Appearance: Normal appearance. She is well-developed. HENT: Head: Normocephalic and atraumatic. Right Ear: Tympanic membrane, ear canal and external ear normal. Left Ear: Tympanic membrane, ear canal and external ear normal. Nose: Nose normal. Mouth/Throat: Mouth: Mucous membranes are moist. Eyes: Conjunctiva/sclera: Conjunctivae normal. Neck: Thyroid: No thyromegaly. Vascular: No carotid bruit. Cardiovascular: Rate and Rhythm: Normal rate and regular rhythm. Pulses: Normal pulses. Heart sounds: Normal heart sounds. No murmur heard. No friction rub. No gallop. Pulmonary: Effort: Pulmonary effort is normal. Breath sounds: Normal breath sounds. Ab (more content not included)... Normal [facility] T3Free SerPl-mCncon 03-11-20 24 Free T3 [Mass/Vol] 2.6 pg/mL Normal 2.3-4.1 [facility] Comment on above: Order Comment: Speci men Type: BLOOD SPECIMENOrdering Facility: [facility] Address: [address] [place] [address] Performed By: #### 3 051-0, 3024-7, 3016-3 ####[facility] LABCLIA [id number] [facility] [id number] [address] [place] T4 Free SerPl-mCncon 08-30-2 024 Free T4 [Mass/Vol] 0.9 ng/dL Normal 0.9-1.7 [facility] Comment on above: Order Comment: Speci men Type: BLOOD SPECIMENOrdering Facility: [facility] Address: [address] [place] [address] Performed By: #### 3 051-0, 4-7, 3015-3 ####[facility] LABCLIA [id number] [place] [address] [place] TSH SerPl-aCncon 03-11-2024 TSH Qn 1.640 m[IU]/L Normal 0.270-4.200 [facility] Comment on above: Order Comment: Speccharissa epstein Type: BLOOD SPECIMENOrdering Facility: [facility] Address: [address] [place] [address] Result Comment: If t he patient is , TSH reference range varies by gestational period: First Trimester (weeks 9-12): 0.180-2.990 mIU/L Second Trimester: 0.110-3.980 mIU/L Third Trimester: 0.480-4.710 mIU/L Dale Vicente et al. A Practical Approach for the Verifications and Determination of Site- and Trimester-Specific Reference Intervals for Thyroid Function tests in . Thyroid, 2019:29:3:412-420. Edgar Whalen, et al. 2017 Guidelines of the [place] Thyroid Association for the Diagnosis and Management of Thyroid Disease during and the . Thyroid, 2017:27:3:315-389. Performed By: #### 3 051-0, 3023-7, 3 ####[facility] LABCLIA [id number] [place] [id number] [place] COVID-19, MOLECULARon 2022 SARS-CoV-2 (COVID-19) Ab IA Ql Not detected Normal Not Detected [facility] Comment on above: Result Comment: This test was performed under the FDA's Emergency Use Authorization (EUA). Testing was performed using the Calvillo ID NOW COVID-19 assay on the ID NOW platform. This test has not been approved for use in asymptomatic patients and its performance in this patient population has not been evaluated. Negative results do not rule out the presence of SARS-CoV-2/COVID-19. Fact sheets for the EUA can be found at the following links: For Healthcare Providers: https://www.fda.gov/media/704596/download For Patients: https://www.fda.gov/media/651859/download COVID-19, Molecularon 2022 SARS-CoV-2 (COVID-19) RdRp gene PIPPA+probe Ql (Resp) Not detected Not Detected [facility] Comment on above: This test was perfor med under the FDA's Emergency Use Authorization (EUA). Testing was performed using the PushSpring ID NOW COVID-19 assay on the ID NOW platform. This test has not been approved for use in asymptomatic patients and its performance in this patient population has not been evaluated. Negative results do not rule out the presence of SARS-CoV-2/COVID-19. Fact sheets for the EUA can be found at the following links: For Healthcare Providers: https://www.fda.gov/media/187711/download For Patients: https://www.fda.gov/media/156991/download SARS-CoV-2 (COVID-19) RdRp g juan miguel PIPPA+probe Ql (Resp)on 03-11-2023 Interpretation and review of laboratory results Normal [facility] T3 FREE [facility] 02-21-2022 Free T3 [Mass/Vol] 2.8 pg/mL 2.3 - 4.1 pg/mL [facility] T4 FREE/FREE THYROXon 2021 Free T4 [Mass/Vol] 1.0 ng/dL 0.9 - 1.7 ng/dL [facility] TSH [facility] 02-21-2022 TSH Qn 2.180 m[IU]/L 0.270 - 4.200 mIU/L [facility] Abdomen/Pelvis without Conto n 03-04-2020 Abdomen/Pelvis without Cont [facility] Imaging Services [address] [place] [address] Abdomen/Pelvis without Cont MR#: [id number] Acct: [id number] Name: SRUTHI FLOWERS Rep #: [id number] : 1985 F 34 From: Mario natarajan MD PCP: Dr. Cheryle Werner MD Status: PRE ER Study: Abdomen/Pelvis without Cont Date of Exam: 02/11 09/01 Exam# [id number] Ordering Dr: Asia Mccormack MD STUDY: CT ABDOMEN AND PELVIS WITHOUT CONTRAST REASON FOR EXAM: Female, 34 years old. FELL OFF HORSE, NOW HAVING LBP RADIATION DOSAGE (If Supplied By Facility): CTDIvol = ( 7.56 ) mGy, DLP = ( 339.93 ) mGycm TECHNIQUE: Transaxial images were obtained from the dome of the diaphragm to the symphysis pubis without oral contrast, and without intravenous contrast. Sagittal and coronal images were reconstructed. Individualized dose optimization techniques were used for this CT. COMPARISON: None. FINDINGS: The visualized lung bases are unremarkable. The visualized portions of the heart are within normal limits. Normal liver. Normal gallbladder and extrahepatic biliary system. Normal spleen. Normal pancreas. Normal bilateral adrenal glands. Normal right kidney. Normal left kidney. Normal visualized stomach. Normal small intestine. Normal colon. The appendix is visualized and appears normal. Normal abdominal aorta. Normal inferior vena cava. Normal retroperitoneum. Normal urinary bladder. 5.8 x 5.1 cm cystic lesion in the posterior right pelvis, likely ovarian or adnexal in origin. Normal abdominal wall. Normal osseous structures. CT/Abdomen/Pelvis without Cont IMPRESSION: No CT evidence of acute injury involving the abdomen or pelvis. 5.8 x 5.1 cm cystic lesion in the posterior right pelvis, likely ovarian or adnexal in origin. Electronically Signed: Mario Walls MD at 22:25 EDT Tel , Service support , CC: Dr. Asia Mccormack MD; Dr. Cheryle Werner MD Dining Car Hop: Signed Normal [facility] Emergency Department Summary on 03-04-2020 Emergency Department Summary [facility] Medical Records Department [address] [place] [address] Emergency Department Summary 03/03/20 MR#: [id number] Acct: [id number] Name: SRUTHI FLOWERS Rep #: [id number] : 1985 34 From: Asia Mccormack MD PCP: Dr. Cheryle Werner MD Status:DEP ER History of Present Illness Chief Complaint: Back Informant: Patient Onset: Today Current Severity: Moderate Maximum Severity: Moderate Narrative: Patient presents with low back pain after falling off her horse 2 and half hours ago. Patient does not remember how she landed. She complaining of pain in her lower back. When she tries to walk she will get some pain in her left leg as well. She is had no problems with bowel or bladder control. She was not wearing a helmet. She states she might of gotten a slight abrasion on her head but no significant head injury. Past Medical History - Allergies and Home Meds Allergies/Adverse Reactions: Allergies No Known Allergies Allergy (Verified 03/03/20 21:44) Primary Care Physician: Cheryle Werner MD [Primary Care Provider] - Past Medical History: None Lives: With Family Smoking Status: Never smoker Review of Systems General: Denies: Chills, Fever Eyes: Denies: Visual changes - bilaterally ENT: Denies: Bilateral ear pain Cardiovascular: Denies: Chest pain Respiratory: Denies: Dyspnea, Cough Gastrointestinal: Denies: Abdominal pain, Nausea, Vomiting, Diarrhea Musculoskeletal: Reports: Back pain, Extremity Pain Skin: Reports: Abrasions Neurological: Denies: Headache, Parasthesia, Numbness Hematologic: Denies: Easy bruising, Easy bleeding Allergy: Denies: Uticaria Physical Exam Vital Signs/Narrative: Vital Signs Temp Pulse Resp BP Pulse Ox 03/03/20 21:41 98.1 F 89 15 140/83 H 100 Inital Vital Signs reviewed: Yes General: Well nourished, Well developed Head: Normocephalic ENT: Moist mucous membranes Neck: Supple Cardiovascular: Regular rate, Regular rhythm Respiratory: No distress, CTA bilaterally Abdomen: Soft, Nontender Back: - - Tenderness over the lower lumbar spine. Abrasions are noted across the lower lumbar region/upper pelvis.. Negative for: CVA tenderness Extremities: Nontender Skin: Normal color, No rash Neurological: Alert, Oriented x3, Normal Strength, Normal Sensation Psychological: Normal affect Diagnostic/Tx/Re-eval Impressions Abdomen/Pelvis CT 03/03/20 22:00 IMPRESSION: No CT evidence of acute injury involving the abdomen or pelvis. 5.8 x 5.1 cm cystic lesion in the posterior right pelvis, likely ovarian or adnexal in origin. Electronically Signed: Mario Walls MD at 22:25 EDT Tel , Service support , 03/03/20 22:00 Abdomen/Pelvis without Cont [CT] Stat - Medical Decision Making Patient was given Naprosyn, Flexeril, [place] here for pain. CT flank was obtained. Official read reveals evidence of a probable ovarian cyst but no bony abnormality. It does appear she has some inflammation changes noted in the soft tissue of the left lower flank. Kidneys are unremarkable on my review. Patient will be given prescriptions for home. She is given work restrictions for the next 5 days. ED Disposition - Plan for ED Patient: Disposition: Home or Assisted Living Diagnosis: Back contusion Instructions: ED Contusion Back Prescriptions: cycloBENZAPRine HCl [Flexeril] 10 mg PO TID PRN #20 tablet PRN Reason: Muscle Spasm Naproxen [Naprosyn] 500 mg PO BID PRN PRN #20 tablet PRN Reason: Pain Score 4-10/10 Hydrocodone Bitart/Apap 5-325 [[place] 5MG-325MG] 1 tablet PO Q6H PRN PRN 3 Days #10 tablet PRN Reason: Pain Referrals: Cheryle Werner MD [Primary Care Provider] - 1 Week if not improving What to do if you have Problems For any increased pain, shortness of breath, bleeding, nausea or vomiting, chest pain, or any unexpected problems, contact your Primary Care Provider. Call [facility] ([phone]) or report to the closest Emergency Room. Call 911 if necessary. 03/03/20 3791 Date Asia Mccormack MD Cosigner Signature (If Indicated): Date CC: Dr. Cheryle Werner MD [facility] Vital Signs Date Time Vital Sign Value Performing Clinician Faci lity 09-26-2024 10:17-0400 Body mass index (BMI) [Ratio] 23.83 kg/m2 Frances Trevizo MD Work Phone: [facility] 09-26-2024 10:17-0400 Body weight 63.96 kg Frances Trevizo MD Work Phone: [facility] 09-26-2024 10:17-0400 Diastolic blood pressure 84 mm[Hg] Farnces Trevizo MD Work Phone: [facility] 09-26-2024 10:17-0400 Systolic blood pressure 144 mm[Hg] Frances Trevizo MD Work Phone: [facility] 09-23-2024 08:04-0400 Body height 163.8 cm Pacc 1 Work Phone: [facility] 09-23-2024 08:04-0400 Body mass index (BMI) [Ratio] 24 kg/m2 Pacc 1 Work Phone: [facility] 09-23-2024 08:04-0400 Body temperature 98.49 [degF] Pacc 1 Work Phone: [facility] 09-23-2024 08:04-0400 Body weight 64.41 kg Pacc 1 Work Phone: [facility] 09-23-2024 08:04-0400 Diastolic blood pressure 92 mm[Hg] Pacc 1 Work Phone: [facility] 09-23-2024 08:04-0400 Heart rate 87 /min Pacc 1 Work Phone: [facility] 09-23-2024 08:04-0400 Respiratory rate 14 /min Pac 1 Work Phone: [facility] 09-23-2024 08:04-0400 SaO2% (BldA) [Mass fraction] 98 % Pac 1 Work Phone: [facility] 09-23-2024 08:04-0400 Systolic blood pressure 126 mm[Hg] Pacc 1 Work Phone: [facility] 07-05-2024 08:23-0500 Body mass index (BMI) [Ratio] 25 kg/m2 Carloz Clutter PA-C Work Phone: [facility] 07-05-2024 08:23-0500 Body temperature 97.39 [degF] Carloz Clutter PA-C Work Phone: [facility] 07-05-2024 08:23-0500 Body weight 67.1 kg Carloz Clutter PA-C Work Phone: [facility] 07-05-2024 08:23-0500 Diastolic blood pressure 98 mm[Hg] Carloz Clutter PA-C Work Phone: [facility] 07-05-2024 08:23-0500 Heart rate 102 /min Carloz Clutter PA-C Work Phone: [facility] 07-05-2024 08:23-0500 Respiratory rate 18 /min Carloz Clutter PA-C Work Phone: [facility] 07-05-2024 08:23-0500 SaO2% (BldA) [Mass fraction] 99 % Carloz Clutter PA-C Work Phone: [facility] 07-05-2024 08:23-0500 Systolic blood pressure 138 mm[Hg] Carloz Clutter PA-C Work Phone: [facility] 06-27-2024 08:12-0500 Body mass index (BMI) [Ratio] 25.26 kg/m2 Filomena Castorena APRN.CNP Work Phone: [facility] 06-27-2024 08:12-0500 Body weight 67.8 kg Filomena Yamil BLOCKER HAND.METALWORKING SPECIALIST Work Phone: [facility] 06-27-2024 08:12-0500 Diastolic blood pressure 78 mm[Hg] Filomena Yamil BLOCKER HAND.METALWORKING SPECIALIST Work Phone: [facility] 06-27-2024 08:12-0500 Heart rate 72 /min Filomena Yamil BLOCKER HAND.METALWORKING SPECIALIST Work Phone: [facility] 06-27-2024 08:12-0500 Respiratory rate 14 /min Filomena Yamil BLOCKER HAND.METALWORKING SPECIALIST Work Phone: [facility] 06-27-2024 08:12-0500 SaO2% (BldA) [Mass fraction] 96 % Filomena Yamil BLOCKER HAND.METALWORKING SPECIALIST Work Phone: [facility] 06-27-2024 08:12-0500 Systolic blood pressure 120 mm[Hg] Filomena Yamil BLOCKER HAND.METALWORKING SPECIALIST Work Phone: [facility] 03-11-2024 09:38-0400 Body height 163.8 cm Cheryle Werner MD Work Phone: [facility] 03-11-2024 09:38-0400 Body mass index (BMI) [Ratio] 23.62 kg/m2 Cheryle Werner MD Work Phone: [facility] 03-11-2024 09:38-0400 Body weight 63.4 kg Cheryle Werner MD Work Phone: [facility] 03-11-2024 09:38-0400 Diastolic blood pressure 64 mm[Hg] Cheryle Werner MD Work Phone: [facility] 03-11-2024 09:38-0400 Heart rate 70 /min Cheryle Werner MD Work Phone: [facility] 03-11-2024 09:38-0400 Respiratory rate 12 /min Cheryle Werner MD Work Phone: [facility] 03-11-2024 09:38-0400 SaO2% (BldA) [Mass fraction] 100 % Cheryle Werner MD Work Phone: [facility] 03-11-2024 09:38-0400 Systolic blood pressure 134 mm[Hg] Cheryle Werner MD Work Phone: [facility] 09-28-2023 11:11-0400 Body height 163.8 cm Frances Trevizo MD Work Phone: [facility] 09-28-2023 11:11-0400 Body weight 67.59 kg Frances Trevizo MD Work Phone: [facility] 09-28-2023 11:11-0400 Diastolic blood pressure 82 mm[Hg] Frances Trevizo MD Work Phone: [facility] 09-28-2023 11:11-0400 Systolic blood pressure 134 mm[Hg] Frances Trevizo MD Work Phone: [facility] 03-11-2023 20:52-0400 Diastolic blood pressure 91 mm[Hg] Judi Dawkins CNP Work Phone: [facility] 03-11-2023 20:52-0400 Heart rate 102 /min Judi Dawkins CNP Work Phone: [facility] 03-11-2023 20:52-0400 SaO2% (BldA) [Mass fraction] 97 % Judi Dawkins CNP Work Phone: [facility] 03-11-2023 20:52-0400 Systolic blood pressure 143 mm[Hg] Judi Dawkins CNP Work Phone: [facility] 03-11-2023 20:32-0400 Body mass index (BMI) [Ratio] 24.89 kg/m2 Judi Dawkins CNP Work Phone: [facility] 03-11-2023 20:32-0400 Body temperature 99.5 [degF] Judi Dawkins CNP Work Phone: [facility] 03-11-2023 20:32-0400 Body weight 65.77 kg Judi Honeycuttjessika HSIEH Work Phone: [facility] 03-11-2023 20:32-0400 Respiratory rate 16 /min Judi Jonny HSIEH Work Phone: [facility] 09-15-2022 08:35-0500 Body height 163.8 cm Frances Trevizo MD Work Phone: [facility] 09-15-2022 08:35-0500 Body weight 67.13 kg Frances Trevizo MD Work Phone: [facility] 09-15-2022 08:35-0500 Diastolic blood pressure 74 mm[Hg] Frances Trevizo MD Work Phone: [facility] 09-15-2022 08:35-0500 Systolic blood pressure 126 mm[Hg] Frances Trevizo MD Work Phone: [facility] 02-21-2022 09:46-0400 Body height 165.1 cm Cheryle Werner MD Work Phone: [facility] 02-21-2022 09:46-0400 Body weight 60.33 kg Cheryle Werner MD Work Phone: [facility] 02-21-2022 09:46-0400 Diastolic blood pressure 82 mm[Hg] Cheryle Werner MD Work Phone: [facility] 02-21-2022 09:46-0400 Heart rate 57 /min Cheryle Werner MD Work Phone: [facility] 02-21-2022 09:46-0400 SaO2% (BldA) [Mass fraction] 99 % Cheryle Werner MD Work Phone: [facility] 02-21-2022 09:46-0400 Systolic blood pressure 128 mm[Hg] Cheryle Werner MD Work Phone: [facility] 12-27-2021 09:17-0400 Body temperature 98.2 [degF] Ghada Laci BLOCKER HAND.METALWORKING SPECIALIST Work Phone: [facility] 12-27-2021 09:17-0400 Body weight 65.77 kg Ghada Laci BLOCKER HAND.METALWORKING SPECIALIST Work Phone: [facility] 12-27-2021 09:17-0400 Diastolic blood pressure 64 mm[Hg] Ghada Laci BLOCKER HAND.METALWORKING SPECIALIST Work Phone: [facility] 12-27-2021 09:17-0400 Heart rate 75 /min Ghada Laci BLOCKER HAND.METALWORKING SPECIALIST Work Phone: [facility] 12-27-2021 09:17-0400 Respiratory rate 21 /min Ghada Laci BLOCKER HAND.METALWORKING SPECIALIST Work Phone: [facility] 12-27-2021 09:17-0400 SaO2% (BldA) [Mass fraction] 99 % Ghada Laci BLOCKER HAND.METALWORKING SPECIALIST Work Phone: [facility] 12-27-2021 09:17-0400 Systolic blood pressure 122 mm[Hg] Ghada Laci BLOCKER HAND.METALWORKING SPECIALIST Work Phone: [facility] 02-19-2018 18:21-0400 BMI (Body Mass Index) 25.92 kg/m2 [facility] 02-19-2018 18:21-0400 Body Temperature 98.8 [degF] [facility] 02-19-2018 18:21-0400 BP Diastolic 99 mm[Hg] [facility] 02-19-2018 18:21-0400 BP Systolic 154 mm[Hg] [facility] 02-19-2018 18:21-0400 Height 162.6 cm [facility] 02-19-2018 18:21-0400 Pulse (Heart Rate) 59 /min [facility] 02-19-2018 18:21-0400 Pulse Oximetry 99 % [facility] 02-19-2018 18:21-0400 Respiratory Rate 18 /min [facility] 02-19-2018 18:21-0400 Weight 68.49 kg [facility] Encounters Encounter Date Encounter Type Care Provider Facility Start: 10-31-2024 End: 10-31-2024 ambulatory Frances Trevizo MD Work Phone: OB/Gynecology Comment on above: Return from Leave Re quest Start: 10-10-2024 End: 10-10-2024 ambulatory FRANCES TREVIZO Facility:[facility] Start: 10-10-2024 End: 12-10-2024 Follow-up encounter Frances Trevizo MD Work Phone: OB/Gynecology Start: 10-10-2024 End: 10-11-2024 Telephone encounter Frances Trevizo MD Work Phone: OB/Gynecology Comment on above: Results; Post Op Start: 10-04-2024 End: 10-05-2024 Patient encounter procedure Franecs Trevizo MD Work Phone: [place] Provider Adult Start: 10-04-2024 End: 10-05-2024 ambulatory Frances Trevizo MD Work Phone: [place] Provider Adult Start: 09-26-2024 End: 09-26-2024 ambulatory FRANCES TREVIZO Facility:[facility] Start: 09-26-2024 End: 09-26-2024 Patient encounter procedure Frances Trevizo MD Work Phone: OB/Gynecology Comment on above: Ovarian cyst, right (Primary Dx); Cyst of ovary, unspecified laterality; Sterilization consult; Preoperative examination Start: 09-26-2024 End: 09-26-2024 Preprocedural examination done Frances Trevizo MD Work Phone: [facility] Start: 09-23-2024 End: 09-23-2024 Admission to establishment [facility] [place] [facility] Work Phone: Pre Anesthesia Start: 09-23-2024 End: 09-23-2024 ambulatory FRANCES TREVIZO Facility:[facility] Start: 09-23-2024 End: 09-23-2024 Anesthesia consultation [facility] [place] [facility] Work Phone: Pre Anesthesia Comment on above: Pre-operative examin ation (Primary Dx); Migraine without aura and without status migrainosus, not intractable; Chronic lymphocytic thyroiditis; Multinodular goiter Start: 09-23-2024 End: 09-23-2024 Preprocedural examination done [facility] [place] [facility] Work Phone: [facility] Start: 09-14-2024 End: 09-14-2024 Refill Frances Trevizo MD Work Phone: OB/Gynecology Comment on above: Refill Request Start: 09-14-2024 End: 09-22-2024 Refill Frances Trevizo MD Work Phone: OB/Gynecology Comment on above: Refill Request FMLA Paperwork Start: 09-08-2024 End: 09-29-2024 Admission to same day surgery center [facility] Provider OB/Gynecology Comment on above: surgery dates Start: 09-08-2024 End: 09-29-2024 E-mail encounter from caregiver [facility] Provider OB/Gynecology Start: 08-29-2024 End: 08-31-2024 Telephone encounter Frances Trevizo MD Work Phone: OB/Gynecology Comment on above: Preparations For Erick miguel Start: 08-22-2024 End: 10-22-2024 Follow-up encounter Frances Trevizo MD Work Phone: OB/Gynecology Start: 08-22-2024 End: 08-22-2024 Telephone encounter Frances Trevizo MD Work Phone: OB/Gynecology Comment on above: Results Start: 08-20-2024 End: 10-20-2024 Follow-up encounter Frances Trevizo MD Work Phone: OB/Gynecology Start: 08-20-2024 End: 08-20-2024 ambulatory FRANCES TREVIZO Facility:[facility] Start: 08-12-2024 End: 08-12-2024 ambulatory Fugitive Investigator [employer] Work Phone: OB/Gynecology Start: 08-12-2024 End: 08-12-2024 Patient encounter procedure Us Tech 1 [facility] OB/Gynecology Start: 07-22-2024 End: 07-22-2024 ambulatory FILOMENA CASTORENA Facility:[facility] Start: 07-05-2024 End: 07-05-2024 ambulatory CHERYLE WERNER Facility:[facility] Start: 07-05-2024 End: 07-05-2024 Office outpatient new 30 minutes Carloz Willis PA-C Work Phone: [facility] Comment on above: Acute recurrent sinu sitis, unspecified location (Primary Dx) Start: 06-27-2024 End: 06-27-2024 ambulatory FILOMENA CASTORENA Facility:[facility] Start: 06-27-2024 End: 06-27-2024 Patient encounter procedure Filomena Castorena BLOCKER HAND.METALWORKING SPECIALIST Work Phone: [facility] Comment on above: Cervical lymphadenop athy (Primary Dx); Inguinal adenopathy Start: 06-24-2024 End: 06-24-2024 ambulatory Cheryle Werner MD Work Phone: [facility] [place] Comment on above: Swollen Lymph Nodes Start: 03-11-2024 End: 03-11-2024 ambulatory CHERYLE WERNER Facility:[facility] Start: 03-11-2024 End: 03-11-2024 Patient encounter status Cheryle Werner MD Work Phone: [facility] Work Phone: Start: 03-11-2024 End: 03-11-2024 Periodic preventive med est patient 18-39 yrs Cheryle Werner MD Work Phone: [facility] [place] Comment on above: Routine medical exam (Primary Dx); Migraine without aura and without status migrainosus, not intractable; Allergic rhinitis due to animal hair and dander; Screening for depression; Encounter for screening examination for other mental health and behavioral disorders; Multinodular goiter Start: 03-11-2024 End: 03-11-2024 ambulatory CHERYLE WERNER Facility:[facility] Start: 03-11-2024 Encounter for genera l adult medical examination without abnormal findings CHERYLE WERNER [facility] Start: 09-28-2023 End: 09-28-2023 Patient encounter procedure Frances Trevizo MD Work Phone: OB/Gynecology Comment on above: Encounter for gyneco logical examination (general) (routine) without abnormal findings (Primary Dx); Ovarian cyst, right Start: 09-28-2023 End: 09-28-2023 Patient encounter status Frances Trevizo MD Work Phone: [facility] Start: 03-11-2023 End: 03-11-2023 ambulatory JUDI DAWKINS [facility] Start: 03-11-2023 End: 03-11-2023 Office outpatient new 20 minutes Judi Jane Dawkins [facility] Work Phone: [facility] Comment on above: Acute upper respirat ory infection (Primary Dx); Exposure to COVID-19 virus Start: 09-15-2022 End: 09-15-2022 Patient encounter procedure Frances Trevizo MD Work Phone: OB/Gynecology Comment on above: Encounter for gyneco logical examination (general) (routine) without abnormal findings (Primary Dx); Ovarian cyst, right Start: 09-15-2022 End: 09-15-2022 Patient encounter status Frances Trevizo MD Work Phone: OB/Gynecology Start: 08-25-2022 Telephone encounter Frances Trevizo MD Work Phone: OB/Gynecology Comment on above: Results Start: 08-24-2022 Orders Only Frances Trevizo MD Work Phone: OB/Gynecology Comment on above: Cyst of ovary, unspe cified laterality (Primary Dx) Start: 08-15-2022 End: 08-15-2022 Patient encounter procedure Lisa Kulkarni MD Work Phone: OB/Gynecology Comment on above: Cyst of ovary, unspe cified laterality (Primary Dx) Start: 07-14-2022 Refill Frances Trevizo MD Work Phone: OB/Gynecology Comment on above: Refill Request Start: 02-21-2022 End: 02-21-2022 Patient encounter procedure Cheryle Werner MD Work Phone: [facility] [place] Comment on above: Routine medical exam (Primary Dx); Chronic lymphocytic thyroiditis; Allergic rhinitis due to animal hair and dander; Multinodular goiter Start: 02-21-2022 End: 02-21-2022 Patient encounter status Cheryle Werner MD Work Phone: [facility] [place] Start: 12-27-2021 End: 12-27-2021 Patient encounter procedure Ghada Aguero APRN.METALWORKING SPECIALIST Work Phone: [facility] Comment on above: Acute non-recurrent pansinusitis (Primary Dx) Start: 02-19-2018 End: 02-19-2018 Office outpatient new 20 minutes Merle Traci Rob Work Phone: [facility] [place] Procedures Date Procedure Procedure Detail Performing Clinician Start: 08-12-2024 Us pelvic nonobstetr ic real-time image complete Frances Trevizo MD Work Phone: Start: 03-11-2024 Adult depression scr eening assessment Cheryle Werner MD Work Phone: Start: 03-11-2023 Sars-cov-2 detection by dna/rna Judi Dawkins METALWORKING SPECIALIST Work Phone: Start: 07-25-2021 Adult depression scr eening assessment Ghada Aguero APRN.METALWORKING SPECIALIST Work Phone: Plan of Treatment Date Care Activity Detail Author Start: 08-12-2026 HPV TESTING HPV TESTING [facility] Start: 08-12-2026 PAP TESTING PAP TESTING [facility] Start: 08-12-2026 Screening for malign ant neoplasm of cervix [facility] Start: 04-13-2025 End: 04-13-2025 Patient encounter procedure 04/13/2025 9:20 AM EDT Office Visit OB/Gynecology [address] [place] [address] Frances Mojica MD [address] [place] [address] 1st attempt / Annual OB/Gynecology Comment on above: 1st attempt / Annual Start: 03-30-2025 End: 03-30-2025 Patient encounter procedure 03/30/2025 1:20 PM EDT Office Visit OB/Gynecology [address] [place] [address] Frances Mojica MD [address] [place] [address] Annual OB/Gynecology Comment on above: Annual Start: 03-24-2025 End: 03-24-2025 Patient encounter procedure 03/24/2025 8:40 AM EDT Office Visit [facility] [address] [place] [address] Cheryle Werner MD [address] [place] [address] Yearly Exam [facility] [place] Comment on above: Yearly Exam Start: 03-11-2025 Anxiety Screening Anxiety Screening [facility] Start: 03-11-2025 Depression Screening Depression Scre ening [facility] Start: 02-17-2025 End: 08-20-2025 US Pelvis PELVIC US [facility] Anc Imaging Routine Ovarian cyst, right Expected: 02/17/2025 (Approximate), Expires: 08/20/2025 [facility] Work Phone: Comment on above: Expected: 02/17/2025 (Approximate), Expires: 08/20/2025 Start: 11-24-2024 Tetanus vaccination Tetanus: Every 1 0yrs [facility] Start: 11-24-2024 Urine microalbumin profile [facility] Start: 10-07-2024 End: 10-07-2024 Patient encounter procedure 10/07/2024 4:00 PM EDT Office Visit OB/Gynecology [address] [place] [address] Frances Mojica MD [address] [place] [address] Annual OB/Gynecology Comment on above: Annual Start: 10-04-2024 End: 10-04-2024 Admission to same day surgery center 10/04/2024 12:42 PM EDT - 10/04/2024 2:12 PM EDT [facility] [address] [place] [id number] Frances Mojica MD [address] [place] [address] LAPAROSCOPIC EXCISION CYST OVARIAN [facility] Comment on above: LAPAROSCOPIC EXCISIO N CYST OVARIAN Start: 10-04-2024 End: 10-04-2024 Laparoscopy w/rmvl adnexal structures [facility] Start: 10-04-2024 End: 10-04-2024 Laps surg w/aspir cavity/cyst single/multiple LAPAROSCOPIC EXCISION CYST OVARIAN Ovarian cyst, right 10/04/2024 12:42 PM EDT [facility] OR Start: 10-04-2024 Subsequent hospital visit by physician 10/04/2024 12:42 PM EDT Hospital Encounter [facility] [address] [place] [address] Frances Mojica MD [address] [place] [address] Ovarian cyst, right [N83.201] [facility] Comment on above: Ovarian cyst, right [N83.201] Start: 10-04-2024 End: 10-04-2024 Admission to same day surgery center 10/04/2024 10:15 AM EDT - 10/04/2024 11:45 AM EDT Surgery [facility] [address] [place] [id number] Frances Mojica MD [address] [place] [address] LAPAROSCOPIC EXCISION CYST OVARIAN [facility] Comment on above: LAPAROSCOPIC EXCISIO N CYST OVARIAN Start: 10-04-2024 End: 10-04-2024 Laparoscopy w/rmvl adnexal structures [facility] Start: 10-04-2024 End: 10-04-2024 Laps surg w/aspir cavity/cyst single/multiple LAPAROSCOPIC EXCISION CYST OVARIAN Ovarian cyst, right 10/04/2024 10:15 AM EDT [facility] Start: 10-04-2024 Subsequent hospital visit by physician 10/04/2024 10:15 AM EDT Hospital Encounter [facility] [address] [place] [address] Frances Mojica MD [address] [place] [address] Ovarian cyst, right [N83.201] [facility] Comment on above: Ovarian cyst, right [N83.201] Start: 09-26-2024 End: 09-26-2024 Patient encounter procedure 09/26/2024 10:20 AM EDT Office Visit OB/Gynecology [address] [place] [address] Frances Mojica MD [address] [place] [address] surgery 10/04 @ [facility] Comment on above: surgery 10/04 @ [facility] Start: 09-23-2024 End: 09-23-2024 Anesthesia consultation 09/23/2024 8:00 AM EDT PAT Pre [facility] [address] [facility] [place] [address] 1, [facility] [place] [address] [place] [address] 10/04 DECLINED VVLAPAROSCOPIC EXCISION CYST OVARIAN [2393] - Ovary - Right Pre Anesthesia Comment on above: 10/04 DECLINED VVLAPA ROSCOPIC EXCISION CYST OVARIAN [2393] - Ovary - Right Start: 08-12-2024 End: 08-12-2024 Follow-up encounter 08/12/2024 8:30 AM EST Procedure OB/Gynecology [address] [place] [address] Remote, Fugitive Investigator [facility] [address] [place] [address] 1 yr follow up cyst OB/Gynecology Comment on above: 1 yr follow up cyst Start: 06-27-2024 End: 09-26-2024 CBC W Auto Differential panel - Blood [facility] Work Phone: Comment on above: Expected: 06/27/2024 , Expires: 09/26/2024 Start: 06-27-2024 End: 09-26-2024 Comprehensive metabolic 2000 panel - Serum or Plasma [facility] Comment on above: Expected: 06/27/2024 , Expires: 09/26/2024 Start: 06-27-2024 End: 06-27-2024 Patient encounter procedure 06/27/2024 8:20 AM EST Office Visit [facility] [place] [address] [place] [address] Filomena Castorena, BLOCKER HAND.METALWORKING SPECIALIST [address] [place] [address] Swollen lymph nodes left side of neck. See triage 06/24/2024 [facility] [place] Comment on above: Swollen lymph nodes left side of neck. See triage 06/24/2024 Start: 03-13-2024 Covid-19 Vaccine ( season) Covid-19 Vaccine ( season) [facility] Start: 03-13-2024 Influenza vaccination Influenza Vacc ine (#1) [facility] Start: 03-11-2024 End: 06-10-2024 Thyrotropin [Units/volume] in Serum or Plasma [facility] Work Phone: Comment on above: Expected: 03/11/2024 , Expires: 06/10/2024 Start: 03-11-2024 End: 06-10-2024 Thyroxine (T4) free [Mass/volume] in Serum or Plasma [facility] Comment on above: Expected: 03/11/2024 , Expires: 06/10/2024 Start: 03-11-2024 End: 06-10-2024 Triiodothyronine (T3) Free [Mass/volume] in Serum or Plasma [facility] Comment on above: Expected: 03/11/2024 , Expires: 06/10/2024 Start: 09-28-2023 End: 09-27-2024 US Pelvis PELVIC US [facility] Anc Imaging Routine Ovarian cyst, right Expected: 09/28/2023, Expires: 09/27/2024 [facility] Work Phone: Comment on above: Expected: 09/28/2023 , Expires: 09/27/2024 Start: 07-13-2023 Depression Assessment Depression Ass [facility] Start: 03-13-2023 Influenza vaccination Sequenti al Influenza Vaccine (#1) [facility] Start: 08-24-2022 End: 08-24-2023 PELVIC US [facility]I PELVIC US [facility] Anc Imaging Routine Cyst of ovary, unspecified laterality Expected: 08/24/2022, Expires: 08/24/2023 [facility] Work Phone: Comment on above: Expected: 08/24/2022 , Expires: 08/24/2023 Start: 07-25-2022 Adult depression scr eening assessment DEPRESSION SCREENING [facility] Start: 07-13-2022 DEPRESSION ASSESSMENT DEPRESSION ASS [facility] Start: 03-13-2022 Influenza vaccination [facility] Start: 07-21-2021 COVID-19 VACCINE (4 - Booster for Moderna series) COVID-19 VACCINE (4 - Booster for Moderna series) [facility] Start: 03-13-2018 Influenza vaccination SEQUENTI AL INFLUENZA VACCINE (#1) [facility] Start: 2007 Screening for malign ant neoplasm of cervix Pap Smear [facility] Start: 2004 HEPATITIS C SCREENING HEPATITIS C [facility] Start: 2004 Hepatitis C screening Hepatitis C [facility] Start: 2001 HIV screening HIV Screening [facility] Start: 1998 Depression screening using PHQ-9 (Patient Health Questionnaire 9) score Depression Screening (PHQ-2/9) [facility] Start: 1989 History and physical examination, annual for health maintenance Wellness Visit [facility] Start: 1986 Screening for malign ant neoplasm of cervix PAP SMEAR [facility] Start: 1986 Tetanus vaccination TETANUS EVERY 10 YR [facility] Immunizations Immunization Date Immunization Notes Care Provider Fa ankit 04-14-2023 influenza virus vacc ine, unspecified formulation Cheryle Werner MD Work Phone: [facility] 03-29-2020 influenza virus vacc ine, unspecified formulation Ghada Laci BLOCKER HAND.METALWORKING SPECIALIST Work Phone: [facility] 04-01-2018 influenza virus vacc ine, unspecified formulation Ghada Laci BLOCKER HAND.METALWORKING SPECIALIST Work Phone: [facility] 11-24-2014 tetanus toxoid, redu kenji diphtheria toxoid, and acellular pertussis vaccine, adsorbed Ghada Laci BLOCKER HAND.METALWORKING SPECIALIST Work Phone: [facility] 05-11-2008 influenza, seasonal, injectable Frances Trevizo MD Work Phone: [facility] 06-27-2005 hepatitis B vaccine, pediatric or pediatric/adolescent dosage Ghada Laci BLOCKER HAND.METALWORKING SPECIALIST Work Phone: [facility] 01-24-2005 hepatitis B vaccine, pediatric or pediatric/adolescent dosage Ghada Laci BLOCKER HAND.METALWORKING SPECIALIST Work Phone: [facility] 01-24-2005 meningococcal polysaccharide (groups A, C, Y and W-135) diphtheria toxoid conjugate vaccine (MCV4P) Ghada Laci BLOCKER HAND.METALWORKING SPECIALIST Work Phone: [facility] 12-25-2004 hepatitis B vaccine, pediatric or pediatric/adolescent dosage Ghada Laci BLOCKER HAND.METALWORKING SPECIALIST Work Phone: [facility] 11-06-1998 measles, mumps and rubella virus vaccine Ghada Laci BLOCKER HAND.METALWORKING SPECIALIST Work Phone: [facility] 09-13-1991 diphtheria, tetanus toxoids and acellular pertussis vaccine, unspecified formulation Frances Neyhart Trevizo MD Work Phone: [facility] 09-13-1991 poliovirus vaccine, unspecified formulation Ghada Laci BLOCKER HAND.METALWORKING SPECIALIST Work Phone: [facility] 08-28-1987 diphtheria, tetanus toxoids and acellular pertussis vaccine, unspecified formulation Frances Trevizo MD Work Phone: [facility] 08-28-1987 measles, mumps and rubella virus vaccine Ghada Laci BLOCKER HAND.METALWORKING SPECIALIST Work Phone: [facility] 08-28-1987 poliovirus vaccine, unspecified formulation Ghada Laci BLOCKER HAND.METALWORKING SPECIALIST Work Phone: [facility] 1986 diphtheria, tetanus toxoids and acellular pertussis vaccine, unspecified formulation Frances Trevizo MD Work Phone: [facility] 1986 diphtheria, tetanus toxoids and acellular pertussis vaccine, unspecified formulation Frances Trevizo MD Work Phone: [facility] 1986 poliovirus vaccine, unspecified formulation Ghada Laci BLOCKER HAND.METALWORKING SPECIALIST Work Phone: [facility] 1986 diphtheria, tetanus toxoids and acellular pertussis vaccine, unspecified formulation Frances Trevizo MD Work Phone: [facility] 1986 poliovirus vaccine, unspecified formulation Ghada Laci BLOCKER HAND.METALWORKING SPECIALIST Work Phone: [facility] Payers Date Payer Category Payer Private Health Insurance [facility] PL[facility] GENERIC [id number] 2019 Unknown [facility] PLAN [place] PPO CONNECT GENERIC [id number] 2019-Present [phone] [address] [place] [address] PPO [id number] 2012 Unknown [id number] 2012 Unknown [id number] 1986 Unknown [id number] Social History Date Type Detail Facility Start: 12-10-2011 End: 02-19-2018 Tobacco smoking status NHIS Never smoker [facility] Start: 1985 [facility] Start: 12-27-2021 End: 09-26-2024 Alcohol intake Current drinker of alcohol (finding) [facility] Start: 07-25-2021 History SDOH Alcohol Frequency 3 [facility] Start: 07-25-2021 History SDOH Alcohol Std Drinks 1 [facility] Start: 07-25-2021 History SDOH Social Connections Phone 4 [facility] Start: 07-25-2021 History SDOH Social Connections Get Together 5 [facility] Start: 07-25-2021 History SDOH Social Connections Living 7 [facility] Start: 07-25-2021 History SDOH Physica l Activity MPS 6 [facility] Start: 07-25-2021 History SDOH Transpo rt Med 2 [facility] Start: 06-07-2020 Education 15 [facility] Start: 12-17-2021 End: 02-21-2022 Exposure to SARS-CoV-2 (event) Not sure [facility] Work Phone: Start: 12-10-2011 End: 03-11-2023 Tobacco use and exposure Smokeless tobacco non-user [facility] Start: 12-23-2018 End: 02-24-2023 History of Social function [facility] Start: 12-23-2018 End: 02-24-2023 Tobacco use panel [facility] Do you belong to any clubs or organizations such as lutheran groups, unions, fraternal or athletic groups, or school groups? Yes [facility] Are you now , , , , never or living with a partner? Never [facility] How often to you hav e a drink containing alcohol? 2-4 times a month [facility] How many standard dr inks containing alcohol do you have on a typical day? 1 or 2 [facility] How often do you hav e 6 or more drinks on 1 occasion? Never [facility] How hard is it for y ou to pay for the very basics like food, housing, medical care, and heating Not hard at all [facility] Do you feel stress - tense, restless, nervous, or anxious, or unable to sleep at night because your mind is troubled all the time - these days [OSQ] Not at all [facility] (I/We) worried whenora er (my/our) food would run out before (I/we) got money to buy more. Never true [facility] In the past 12 month s, was there a time when you were not able to pay the mortgage or rent on time? No [facility] Functional Status Date Assessment Result Facility 02-15-2015 Are you deaf, or do you have serious difficulty hearing No 02/15/2015 8:57 AM Sharon Dunham, RN No [facility] 02-15-2015 Are you blind, or do you have serious difficulty seeing, even when wearing glasses No 02/15/2015 8:57 AM Sharon Dunham, RICHARD No [facility] 02-15-2015 Do you have serious difficulty walking or climbing stairs No 02/15/2015 8:57 AM Sharon Dunham, RN No [facility] 02-15-2015 Do you have difficul ty dressing or bathing No 02/15/2015 8:57 AM Sharon Dunham, RN No [facility] 02-15-2015 Because of a physica l, mental, or emotional condition, do you have difficulty doing errands alone such as visiting a physician's office or shopping No 02/15/2015 8:57 AM Sharon Dunham, RN No [facility] Mental Status Date Assessment Result Facility 02-15-2015 Because of a physica l, mental, or emotional condition, do you have serious difficulty concentrating, remembering, or making decisions No 02/15/2015 8:57 AM EDT Sharon Burgos RN No [facility] Clinical Notes 01-29-2006 to 10-31-2024 Telephone Encounter - Asia Valdes RN - 10/31/2024 2:15 PM EDTTelephone Encounter - Asia Valdes RN - 10/31/2024 2:15 PM EDTFrances Mojica MD - 09/26/2024 10:45 AM EDT Note Date & Type Note Facility 10-31-2024 Telephone encounter Note Form to DM to sign. [facility] 10-31-2024 Miscellaneous Notes Form to DM to sign. documented in this encounter [facility] 10-11-2024 Telephone encounter Note Patient notified and voiced understanding. Letter released to [facility]. Sharon Burgos RN [facility] 10-11-2024 Miscellaneous Notes Patient notified and voiced understanding. Letter released to [facility]. Sharon Burgos RN Yes she can have the week off if she feels she needs it. Patient notified DM has not reviewed note and we will contact her tomorrow once reviewed by provider. Leesa Fuentes RN Patient notified. States she doesn't feel she can work tomorrow with the dizziness. She will get CBC done today. She did speak to employer and they told her she is able to be out this week and return on 10/17 if needed. They would just needed updated letter from doctor. Patient asking if she can get that and if not all week how many more days will you approve for leave? Okay to release letter to [facility]. Leesa Fuentes RN So long as she is feeling better and not light headed she can return to work. I will order CBC. Patient notified. Heavy bleeding precautions reviewed. Stated that she did have heavy bleeding on 09/09 where she was saturating pads and blood would pour out when sitting on toilet. Feeling some dizziness and fatigue today, but overall feeling better since bleeding is so much platform loader. Encouraged to continue to push fluids. She is asking if she can still return to work tomorrow? Leesa Fuentes RN This can be normal - continue to monitor. Patient notified. Doing well overall since surgery. No pain currently. She is only concerned about her bleeding. States provider told her to expect bleeding for 3-4 days and she is still bleeding today. Changing pad approximately 4-5 hours today but not saturated completely every time. Having some small clots with it too. States bleeding is platform loader today so far than yesterday. Please advise. Leesa Fuentes RN Frances Mojica MD to [facility] Ob-Web Marketing Assistant Pool 10/10/24 8:03 AM Result Note Please call patient - see how she is feeling s/p Ovarian cystectomy and bilateral salpingectomy. Please let her know cyst was benign. - c/w cystadenoma. No further management needed. SURGICAL PATHOLOGY documented in this encounter [facility] 10-10-2024 Telephone encounter Note Yes she can have the week off if she feels she needs it. [facility] 10-10-2024 Telephone encounter Note Patient notified DM has not reviewed note and we will contact her tomorrow once reviewed by provider. Leesa Fuentes RN [facility] 10-10-2024 Telephone encounter Note Patient notified. States she doesn't feel she can work tomorrow with the dizziness. She will get CBC done today. She did speak to employer and they told her she is able to be out this week and return on 10/17 if needed. They would just needed updated letter from doctor. Patient asking if she can get that and if not all week how many more days will you approve for leave? Okay to release letter to [facility]. Leesa Fuentes RN [facility] 10-10-2024 Telephone encounter Note So long as she is feeling better and not light headed she can return to work. I will order CBC. T [facility] 10-10-2024 Telephone encounter Note Patient notified. Heavy bleeding precautions reviewed. Stated that she did have heavy bleeding on 09/09 where she was saturating pads and blood would pour out when sitting on toilet. Feeling some dizziness and fatigue today, but overall feeling better since bleeding is so much platform loader. Encouraged to continue to push fluids. She is asking if she can still return to work tomorrow? Leesa Fuentes RN [facility] 10-10-2024 Telephone encounter Note This can be normal - continue to monitor. T [facility] 10-10-2024 Telephone encounter Note Patient notified. Doing well overall since surgery. No pain currently. She is only concerned about her bleeding. States provider told her to expect bleeding for 3-4 days and she is still bleeding today. Changing pad approximately 4-5 hours today but not saturated completely every time. Having some small clots with it too. States bleeding is platform loader today so far than yesterday. Please advise. Leesa Fuentes RN [facility] 10-10-2024 Telephone encounter Note Frances Mojica MD to [facility] Ob-Web Marketing Assistant Pool 10/10/24 8:03 AM Result Note Please call patient - see how she is feeling s/p Ovarian cystectomy and bilateral salpingectomy. Please let her know cyst was benign. - c/w cystadenoma. No further management needed. SURGICAL PATHOLOGY [facility] 10-04-2024 Note HNO ID: [id number] Author: ?, ?, ? Service: Pharmacy Author Type: ? Type: Plan of Care Filed: 10/04/2024 16:52 Note Text: PHARMACY BEDSIDE DELIVERY SERVICE Patient Name: Sruthi Flowers The marked outpatient medications were Filled at: [facility] and delivered to the patient's bedside to pharm p/u Medication List CHANGE how you take these medications * ondansetron orally disintegrating 4 mg disintegrating tablet Commonly known as: ZOFRAN ODT Take 1 tablet by mouth every 6 hours as needed for nausea/vomiting. What changed: Another medication with the same name was added. Make sure you understand how and when to take each. X * ondansetron orally disintegrating 4 mg disintegrating tablet Commonly known as: ZOFRAN ODT Dissolve 1 tablet on tongue every 8 hours as needed for nausea/vomiting for up to 7 days. What changed: You were already taking a medication with the same name, and this prescription was added. Make sure you understand how and when to take each. * This list has 2 medication(s) that are the same as other medications prescribed for you. Read the directions carefully, and ask your doctor or other care provider to review them with you. CONTINUE taking these medications ADRENAL ORAL Zoyyrqo-Bqoinoiljgcxg-Ctblezot 250-250-65 mg per tablet Commonly known as: EXCEDRIN MIGRAINE Take 1 tablet by mouth every 6 hours as needed. (does not need often) Cholecalciferol (Vitamin D3) 25 mcg (1,000 unit) Cap Take 1 capsule by mouth once daily. fexofenadine 180 mg tablet Commonly known as: MIGUEL Take 1 tablet by mouth once daily. During allergy season fluticasone 50 mcg/actuation nasal spray Commonly known as: FLONASE Use 1-2 Sprays in each nostril once daily. multivitamin tablet PROBIOTIC ORAL Tri-Sprintec 0.18/0.215/0.25 mg-35 mcg (28) Generic drug: Norgestimate-Ethinyl Estradiol Take 1 tablet by mouth once daily. VITAMIN C 1,000 mg tablet Generic drug: Ascorbic Acid You might also be taking other medications not listed above. If you have questions about any of your other medications, talk to the person who prescribed them or your Primary Care Provider. Neelam Slater PAGER: [phone] October 04, 2024 4:52 PM [facility] 10-04-2024 Note HNO ID: [id number] Author: KALA MANNING RN Service: ? Author Type: Registered Nurse Type: Nursing Progress Note Filed: 10/04/2024 16:05 Note Text: Patient able to stand to dress without dizziness. [facility] 10-04-2024 Note HNO ID: [id number] Author: BUSHRA TURCIOS APRN.PARCEL POST CARRIER Service: ? Author Type: Nurse Liquefier Type: Anesthesia Procedure Notes Filed: 10/04/2024 12:56 Note Text: ANESTHESIOLOGY PROCEDURE NOTE Airway General Information Procedure Start Time/Medication Administration: 10/04/2024 12:46 PM Procedure End Time: 10/04/2024 12:46 PM Patient location during procedure: OR Patient identity confirmed: patient sedated or unresponsive Staffing PARCEL POST CARRIER: Bushra Turcios APRN.PARCEL POST CARRIER Performed by: PARCEL POST CARRIER Indications and Patient Condition Indications for airway management: anesthesia Preoxygenated: yes anesthesia circuit Patient position: sniffing Method: sleep Difficult Mask: No Final Airway Details Final airway type: endotracheal airway Final Endotracheal Airway: ETT Cuffed: yes Successful intubation technique: direct laryngoscopy Blade: Kishor Blade size: #3 ETT size (mm): 7.0 Measured from: lips Measurement (cm): 21 Placement verified by: capnometry Cormack-Lehane Classification: grade I - full view of glottis Number of attempts at approach: 1 Airway not difficult SIGNATURE: Bushra Turcios APRN.PARCEL POST CARRIER PATIENT NAME: Sruthi Flowers DATE: October 04, 2024 TIME: 12:52 PM CSN: [id number] [facility] 09-26-2024 History and physical note Pre-Op History and Physical HPI: The patient is a 39 year old female presenting for discussion regarding cystectomy. Pt does not currently have pelvic/abdominal pain but given cyst has gotten larger since previous ultrasound recommendation is removal at this time. Pt does not desire future child bearing capabilities and would also like tubes removed. pre-operative visit. She is scheduled for right ovarian cystectomy, possible oophorectomy with bilateral salpingectomy , for right ovarian cyst, desires sterilization on 10/04/24. Procedure discussed along with risks, benefits and complications. Other alternatives discussed for management. Consent form signed? Yes. PAST MEDICAL HISTORY Diagnosis Date Allergic rhinitis, cause unspecified Chronic lymphocytic thyroiditis Excessive or frequent menstruation WITH IRREGULAR PERIODS Irregular menstrual cycle Migraine without aura and without status migrainosus, not intractable 02/13/2017 jagdeep aura; not often now. Mostly tension headaches Syncope and collapse LIFETIME VASO VAGAL SYNDROME PAST SURGICAL HISTORY Procedure Laterality Date EXTRACTION ERUPTED TOOTH/EXR Current Outpatient Medications Medication Sig Dispense Refill Lactobacillus acidophilus (PROBIOTIC ORAL) Take by mouth. organ concentrates (ADRENAL ORAL) Take by mouth. TRI-SPRINTEC 0.18/0.215/0.25 mg-35 mcg (28) Take 1 tablet by mouth once daily. 84 tablet 3 fluticasone (FLONASE) 50 mcg/actuation nasal spray Use 1-2 Sprays in each nostril once daily. 3 Each 3 ondansetron orally disintegrating (ZOFRAN ODT) 4 mg disintegrating tablet Take 1 tablet by mouth every 6 hours as needed for nausea/vomiting. 30 tablet 1 Vduxuvl-Mjzlyevkywquv-Pnnwvfjl (EXCEDRIN MIGRAINE) 250-250-65 mg per tablet Take 1 tablet by mouth every 6 hours as needed. (does not need often) fexofenadine (MIGUEL) 180 mg tablet Take 1 tablet by mouth once daily. During allergy season Cholecalciferol, Vitamin D3, 1,000 unit cap Take 1 capsule by mouth once daily. VITAMIN C 1,000 MG TAB Take one(1) tablet daily. 0 MULTIVITAMIN TAB Take one(1) tablet daily. 0 No current facility-administered medications for this visit. ALLERGIES: Horse Dander and Seasonal Allergies PERSONAL HISTORY: Social History Tobacco Use Smoking status: Never Smokeless tobacco: Never Vaping Use Vaping status: Never Used Substance Use Topics Alcohol use: Yes Comment: One to Two Times Per Month Drug use: No FAMILY HISTORY: FAMILY HISTORY Problem Relation Age of Onset Heart Mother IRREGULAR HEART BEAT/ heart virus Melanoma Father other (CONNECTIVE TISSUE DISEASE) Brother Hypertension Brother Prostate Cancer Paternal Grandfather Cancer Paternal Aunt Rectal with mets Cancer Paternal Uncle REVIEW OF SYMPTOMS: negative except as noted above PHYSICAL EXAMINATION: VITALS: Blood pressure 144/84, weight 64 kg (141 lb), last menstrual period 09/20/2024. GENERAL: The patient is well nourished, well hydrated in no acute distress. , The patient is oriented to time, place, and person. NECK: full range of motion LUNGS: Clear to auscultation bilaterally. no wheezes, rhonchi or rales HEART: Regular rate and rhythm, Normal heart sounds, and No murmurs or gallops IMPRESSION: 39yo with complex right ovarian cyst- 8.4x6.9x5.7cm and desires sterilization PLAN: laparoscopic ovarian cystectomy, possible oophorectomy, with bilateral salpingectomy Pt has been counseled on risks/benefits and alternatives of surgery including but not limited to anesthesia, bleeding, infection, injury to pelvic structures including bowel, bladder, ureters and vessels. Pt wishes to proceed with surgery at this time. Pre and post op instructions reviewed. I have reviewed and updated past medical and surgical history, medications and allergies Frances Trevizo MD [facility] 09-26-2024 History and physical note Pre-Op History and Physical HPI: The patient is a 39 year old female presenting for discussion regarding cystectomy. Pt does not currently have pelvic/abdominal pain but given cyst has gotten larger since previous ultrasound recommendation is removal at this time. Pt does not desire future child bearing capabilities and would also like tubes removed. pre-operative visit. She is scheduled for right ovarian cystectomy, possible oophorectomy with bilateral salpingectomy , for right ovarian cyst, desires sterilization on 10/04/24. Procedure discussed along with risks, benefits and complications. Other alternatives discussed for management. Consent form signed? Yes. PAST MEDICAL HISTORY Diagnosis Date Allergic rhinitis, cause unspecified Chronic lymphocytic thyroiditis Excessive or frequent menstruation WITH IRREGULAR PERIODS Irregular menstrual cycle Migraine without aura and without status migrainosus, not intractable 02/13/2017 jagdeep aura; not often now. Mostly tension headaches Syncope and collapse LIFETIME VASO VAGAL SYNDROME PAST SURGICAL HISTORY Procedure Laterality Date EXTRACTION ERUPTED TOOTH/EXR Current Outpatient Medications Medication Sig Dispense Refill Lactobacillus acidophilus (PROBIOTIC ORAL) Take by mouth. organ concentrates (ADRENAL ORAL) Take by mouth. TRI-SPRINTEC 0.18/0.215/0.25 mg-35 mcg (28) Take 1 tablet by mouth once daily. 84 tablet 3 fluticasone (FLONASE) 50 mcg/actuation nasal spray Use 1-2 Sprays in each nostril once daily. 3 Each 3 ondansetron orally disintegrating (ZOFRAN ODT) 4 mg disintegrating tablet Take 1 tablet by mouth every 6 hours as needed for nausea/vomiting. 30 tablet 1 Uxjblwo-Lgenmcbusucvn-Paysnlkf (EXCEDRIN MIGRAINE) 250-250-65 mg per tablet Take 1 tablet by mouth every 6 hours as needed. (does not need often) fexofenadine (MIGUEL) 180 mg tablet Take 1 tablet by mouth once daily. During allergy season Cholecalciferol, Vitamin D3, 1,000 unit cap Take 1 capsule by mouth once daily. VITAMIN C 1,000 MG TAB Take one(1) tablet daily. 0 MULTIVITAMIN TAB Take one(1) tablet daily. 0 No current facility-administered medications for this visit. ALLERGIES: Horse Dander and Seasonal Allergies PERSONAL HISTORY: Social History Tobacco Use Smoking status: Never Smokeless tobacco: Never Vaping Use Vaping status: Never Used Substance Use Topics Alcohol use: Yes Comment: One to Two Times Per Month Drug use: No FAMILY HISTORY: FAMILY HISTORY Problem Relation Age of Onset Heart Mother IRREGULAR HEART BEAT/ heart virus Melanoma Father other (CONNECTIVE TISSUE DISEASE) Brother Hypertension Brother Prostate Cancer Paternal Grandfather Cancer Paternal Aunt Rectal with mets Cancer Paternal Uncle REVIEW OF SYMPTOMS: negative except as noted above PHYSICAL EXAMINATION: VITALS: Blood pressure 144/84, weight 64 kg (141 lb), last menstrual period 09/20/2024. GENERAL: The patient is well nourished, well hydrated in no acute distress. , The patient is oriented to time, place, and person. NECK: full range of motion LUNGS: Clear to auscultation bilaterally. no wheezes, rhonchi or rales HEART: Regular rate and rhythm, Normal heart sounds, and No murmurs or gallops IMPRESSION: 39yo with complex right ovarian cyst- 8.4x6.9x5.7cm and desires sterilization PLAN: laparoscopic ovarian cystectomy, possible oophorectomy, with bilateral salpingectomy Pt has been counseled on risks/benefits and alternatives of surgery including but not limited to anesthesia, bleeding, infection, injury to pelvic structures including bowel, bladder, ureters and vessels. Pt wishes to proceed with surgery at this time. Pre and post op instructions reviewed. I have reviewed and updated past medical and surgical history, medications and allergies Frances Trevizo MD documented in this encounter [facility] 09-23-2024 Instructions Eddie Wolf APRN.METALWORKING SPECIALIST - 09/23/2024 8:19 AM EDT Images from the original note were not included. [facility]est[facility] PATIENT PREOPERATIVE INSTRUCTIONS Laura Mojica* has scheduled you for your procedure at this surgery center: [facility]: [phone] -- [address] [address]. Please read below carefully for your personalized instructions. Dietary Restrictions: - No solid food after midnight. - You may have 12 ounces of clear liquids (water, clear juices such as apple juice or gatorade, carbonated beverages, clear tea, black coffee, jello) until 2 hours before scheduled arrival at facility. No red/purple coloring and no creamer/sugar Medications: Unless instructed differently below, stay on all of your medications until your surgery. If you start any new medications after today's visit, please contact your surgeon. Pre-Surgery Med Instructions Medication Instructions Lactobacillus acidophilus (PROBIOTIC ORAL) Stop 7 days before surgery organ concentrates (ADRENAL ORAL) Stop 7 days before surgery TRI-SPRINTEC 0.18/0.215/0.25 mg-35 mcg (28) Take the day of surgery with a small sip of water fluticasone (FLONASE) 50 mcg/actuation nasal spray Take the day of surgery with a small sip of water ondansetron orally disintegrating (ZOFRAN ODT) 4 mg disintegrating tablet IF needed Afwrirl-Fkboxlltolctp-Ghrltrpo (EXCEDRIN MIGRAINE) 250-250-65 mg per tablet Stop 7 days before surgery fexofenadine (MIGUEL) 180 mg tablet IF needed Cholecalciferol, Vitamin D3, 1,000 unit cap Stop 7 days before surgery VITAMIN C 1,000 MG TAB Stop 7 days before surgery MULTIVITAMIN TAB Stop 7 days before surgery If you start any new medications after today's visit, please contact the surgeon's office. If you are currently using a qngo-okk-zwzk injectable or oral medication for diabetes or weight loss such as Dulaglutide (Trulicity), Exenatide (Byetta, Bydureon), Liraglutide (Victoza, Saxenda), Semaglutide (Ozempic, Wegovy, Rybelsus), or Tirzepatide (Mounjaro), the medicine should be stopped at least 7 days before surgery. These medicines can cause food to remain in your stomach for a very long time and increase the risks from surgery and anesthesia. Not stopping the medication for a long enough time may result in your surgery being rescheduled. Blood Thinning Medications: - Stop NSAIDS (Ibuprofen, Advil, Aleve, Motrin, Celebrex, Mobic, etc.) 7 days before surgery, as directed by your surgeon. - Stop Aspirin 7 days before surgery, as directed by your surgeon. - Stop ALL herbal and dietary supplements 7 days before surgery. - You may take Tylenol (Acetaminophen) or any of your pain medications that do not contain aspirin or NSAIDS as needed. Important Reminders: - Candy, mints, and tobacco products are NOT permitted the morning of surgery. - Hearing aids, dentures and glasses may be worn the morning of surgery. - NO jewelry, body piercings, makeup, hairpins or contacts are to be worn the day of surgery. If you develop symptoms such as a fever, cold, or flu, or have other changes to your health within TWO DAYS of scheduled surgery or the morning of surgery, please contact the surgery center above. Personal Belongings: -Please have photo ID and insurance cards. -If you do not have a copy of advance directives on file with us, please bring a copy with you on the day of surgery. - Leave ALL valuables and money at home or with family members. - Please bring high-quality footwear, such as sneakers, to the hospital for ambulating post-surgery. For Outpatient Procedures: - YOU MUST HAVE A RESPONSIBLE PACKAGE DYE STAND LOADER TAKE YOU HOME. A NET COORDINATOR OR WATCH CASE POLISHER CANNOT BE MADE A RESPONSIBLE PACKAGE DYE STAND LOADER. - We recommend that a responsible person stays with you overnight to take care of you. - You cannot stay in a hotel alone after outpatient surgery. You will not be permitted to have your surgery, if you do not have someone to take care of you. Arrival Time for Surgery: - The Surgery Center or hospital where you are having surgery will call the afternoon before surgery (or Thursday for Thursday surgery) with a scheduled arrival time. - If you have not heard by 4 pm, please contact the surgery center above. Please be aware that emergency situations arise, which may delay or change your surgical time. If this happens, we will notify you as soon as possible and regret any inconvenience. If you already have an Advance Directive, please fax a copy to [phone] or email to for it to be added to your chart. If you do not have an Advance Directive, you can find the appropriate form and more information at [email or web address]. We recommend that you complete the Advance Directive form found on the website and bring it with you the day of your surgery. It can be witnessed and scanned into your chart that day. Eddie Wolf APRN.МАРИЯ documented in this encounter [facility] 09-23-2024 History and physical note Images from the original note were not included. [facility] HISTORY AND PHYSICAL EXAMINATION SERVICE DATE: 09/23/2024 SERVICE TIME: 8:39 AM PRIMARY CARE PHYSICIAN: Cheryle Werner MD Assessment Patient has the following medical conditions which may affect jennifer-operative course: Migraine without aura and without status migrainosus, not intractable Assessment: otc analgesics as needed CHR LYMPHOCYT THYROIDIT Assessment: under surveillance TSH Date Value Ref Range Status 03/11/2024 1.640 0.270 - 4.200 mIU/L Final Comment: If the patient is , TSH reference range varies by gestational period: First Trimester (weeks 9-12): 0.180-2.990 mIU/L Second Trimester: 0.110-3.980 mIU/L Third Trimester: 0.480-4.710 mIU/L Dale Vicente et al. A Practical Approach for the Verifications and Determination of Site- and Trimester-Specific Reference Intervals for Thyroid Function tests in . Thyroid, 2019:29:3:412-420. Edgar Whalen et al. 2017 Guidelines of the [place] [employer] for the Diagnosis and Management of Thyroid Disease during and the . Thyroid, 2017:27:3:315-389. Multinodular goiter Assessment: denies compressive symptoms ANESTHESIA FINDINGS: Intubation History: No prior intubation Significant Anesthesia Considerations: none Airway History: No prior intubation Case Activity Status Index: METS: Climb a flight of stairs or walk up a hill (5.50 METs) DASI Score: 5.5 Patient denies any chest pain or undue shortness of breath with the above physical activity. Clinical Frailty Scale: 1. Very fit STOP-Bang Score: Denies snoring loudly Denies feeling tired, fatigued, or sleepy during the daytime Has not been observed to stop breathing or choking/gasping during sleep Denies having high blood pressure BMI less than or equal to 35 kg/m^2 Patient 50 years old or younger Does not have a large neck Non-male patient STOP-Bang Score: 0 [id number] Score: Age: <65 Sex: female CHF history: No Hypertension history: No Stroke/TIA/thromboembolism history: No Vascular disease history: No Diabetes history: No [id number] Score: 1 ARISCAT Score: Age: <=50 Preoperative SpO2: >=96% Respiratory infection in the last month: No Preoperative anemia: No Surgical incision: peripheral Duration of surgery: <2 hrs Emergency procedure: No ARISCAT Score: 0 I - PHYSICAL EVALUATION AIRWAY Patient intubated: No. Tracheostomy tube not present Mallampati: I. TM distance: >3 FB. Neck ROM: full ROM without neurological symptoms. Mouth opening: adequate. Short neck: no. Thick neck: no Lux present: no Lip Bite Test: I Microretrognathia/Micronagthia/R ecessed Chin: No DENTAL Dental findings: teeth intact. Additional comments: +perm retainers. II - ANESTHESIA PLAN Anesthetic Plan: other Beta Joaquina Monitoring Plan Post Procedure Analgesic Plan Prepared for Surgery: optimally prepared for surgery. CONSULTS: Patient does not require consults for optimization at this time Planned Anesthetic: other anesthesia choice The Following Tests/Procedures Have Been Initiated: Orders Placed This Encounter Lactobacillus acidophilus (PROBIOTIC ORAL) Sig: Take by mouth. organ concentrates (ADRENAL ORAL) Sig: Take by mouth. REASON FOR VISIT: Sruthi Flowers is a 39 year old female who is scheduled for Procedure(s): LAPAROSCOPIC EXCISION CYST OVARIAN (Right) LAPAROSCOPIC OOPHORECTOMY (Right) at the request of Dr. Frances Trevizo for consultation. My final recommendation will be communicated back to the requesting physician by way of shared medical record or letter. Subjective The patient has the following: COVID-19 Immunization Status Completed or No Longer Recommended Covid-19 Vaccine (Series Information) Completed 04/17/2024 Imm Admin: COVID-19 vaccine, age 12+ yr (MODERNA) 04/26/2023 Imm Admin: COVID-19 vaccine, age 12+ yr, 2022- season (MODERNA) 05/11/2022 Imm Admin: COVID-19 vaccine, age 12+ yr, bivalent (MODERNA) Only the first 3 history entries have been loaded, but more history exists. CHIEF COMPLAINT: Pre-op exam HPI: Sruthi Flowers is a 39 year old seen for PAC due to scheduled above surgery because of an ovarian cyst. 08/20/2024, Dr. Frances Trevizo Please notify patient that cyst is overall stable- last time I saw her she did not want surgery. It has enlarged over the last 3 years- I am going to order CA 125 - does she want to consider laparoscopic removal of cyst? If not they are recommended repeat ultrasound 6 months. Left ovary still appears normal. REVIEW OF SYSTEMS: General: No weight loss, malaise or fevers. Neurological: Positive for: headaches (otc analgesics as needed). Respiratory: No history of current cough or dyspnea, or pneumonia in the past 6 weeks. No history of respiratory/pulmonary symptoms or problems. Cardiovascular: No history of HTN requiring medication, no history of angina, CHF, CA, cardiac surgery or stents. Denies rest pain, gangrene or revascularization/amputation for PVD. No history of cardiovascular symptoms or problems. GI: No history of GI symptoms or problems. No history of esophageal varices, recent ascites, or ETOH greater than 2 drinks per day. : No history of dysuria, frequency or incontinence, stones or chronic kidney disease. No difficulty urinating, nocturia > 1 time per night or hematuria. PULMONARY SPECIALIST: See HPI. Endocrine: +angelica's. No history of diabetes. Has not taken steroids within the past 30 days. No history of endocrinological symptoms or problems. Hematology: No history of bleeding or clotting disorder. Patient is not taking anti-coagulation or platelet medications. No history of hematological symptoms or problems. Oncology: No history of CA metastasis, chemo within 30 days, or radiotherapy within 90 days. No history of oncological symptoms or problems. Psych: No history of psychiatric symptoms or problems. Musculoskeletal: Negative for joint pain or swelling, back pain or muscle pain. Skin: Negative for lesions, rash and itching. Implanted Devices: No implanted devices. PAST MEDICAL HISTORY Diagnosis Date Allergic rhinitis, cause unspecified Chronic lymphocytic thyroiditis Excessive or frequent menstruation WITH IRREGULAR PERIODS Irregular menstrual cycle Migraine without aura and without status migrainosus, not intractable 02/13/2017 jagdeep aura; not often now. Mostly tension headaches Syncope and collapse LIFETIME VASO VAGAL SYNDROME PAST SURGICAL HISTORY Procedure Laterality Date EXTRACTION ERUPTED TOOTH/EXR FAMILY HISTORY Problem Relation Age of Onset Heart Mother IRREGULAR HEART BEAT/ heart virus Melanoma Father other (CONNECTIVE TISSUE DISEASE) Brother Hypertension Brother Prostate Cancer Paternal Grandfather Cancer Paternal Aunt Rectal with mets Cancer Paternal Uncle Social History Tobacco Use Smoking status: Never Smokeless tobacco: Never Vaping Use Vaping status: Never Used Substance Use Topics Alcohol use: Yes Comment: One to Two Times Per Month Drug use: No Prior to Admission medications as of 09/23/24 0823 Medication Sig Last Dose Taking Lactobacillus acidophilus (PROBIOTIC ORAL) Take by mouth. Yes organ concentrates (ADRENAL ORAL) Take by mouth. Yes TRI-SPRINTEC 0.18/0.215/0.25 mg-35 mcg (28) Take 1 tablet by mouth once daily. Yes fluticasone (FLONASE) 50 mcg/actuation nasal spray Use 1-2 Sprays in each nostril once daily. Yes ondansetron orally disintegrating (ZOFRAN ODT) 4 mg disintegrating tablet Take 1 tablet by mouth every 6 hours as needed for nausea/vomiting. Yes Dnmbakx-Lkiskibqqkdjd-Hkpjeqbl (EXCEDRIN MIGRAINE) 250-250-65 mg per tablet Take 1 tablet by mouth every 6 hours as needed. (does not need often) Yes fexofenadine (MIGUEL) 180 mg tablet Take 1 tablet by mouth once daily. During allergy season Yes Cholecalciferol, Vitamin D3, 1,000 unit cap Take 1 capsule by mouth once daily. Yes VITAMIN C 1,000 MG TAB Take one(1) tablet daily. Yes MULTIVITAMIN TAB Take one(1) tablet daily. Yes No medication comments found. ALLERGIES Allergen Reactions Horse Dander Intolerance Seasonal Allergies Intolerance Dogs, trees Objective PHYSICAL EXAM: General: alert and oriented (x3) and healthy appearance. Pertinent negatives noted - not distressed. Skin: normal color, no rash or lesions. HEENT: EOM intact and pupils equal round. Pertinent negatives noted - no carotid bruit. Cardiovascular: regular rate and rhythm, normal S1 and S2, no rub, murmurs, or gallop. Respiratory: normal breath sounds, no wheezes or crackles. No chest wall deformity or tenderness. Abdomen: soft. Pertinent negatives noted - not tender. Extremities: no deformity, no edema or tenderness, no joint swelling or clubbing. Neurological: normal cognition and motor skills. Gait normal. No weakness or sensory deficit. PAIN ASSESSMENT: VITALS: BP 126/92 Pulse 87 Temp (Src) 98.5 (Temporal) Resp 14 Ht 5' 4.5 (1.64m) Wt 142 lb (64.4kg) SpO2 98% LMP 09/20/2024 BMI 24.01 kg/(m^2). Diagnostic tests reviewed for today's visit: Lab Value Units Date High Low HB 13.6 g/dL 07/22/2024 15.5 11.5 HCT 41.0 % 07/22/2024 46.0 36.0 WBC 10.47 k/uL 07/22/2024 11.00 3.70 PLT 389 k/uL 07/22/2024 400 150 NA 140 mmol/L 06/27/2024 144 136 K 4.4 mmol/L 06/27/2024 5.1 3.7 GLUC 91 mg/dL 06/27/2024 99 74 BUN 11 mg/dL 06/27/2024 21 7 CREAT 0.69 mg/dL 06/27/2024 0.96 0.58 PTSEC No results within date range. INR No results within date range. APTT No results within date range. ALT 13 U/L 06/27/2024 38 7 AST 20 U/L 06/27/2024 35 13 TBILI <0.2 mg/dL 06/27/2024 1.3 0.2 TSH No results within date range. Lab Value Units Date High Low HCGQT No results within date range. UHCG No results within date range. HCG, BODY* No results within date range. Lab Value Units Date High Low ABORHD No results within date range. ABSCREEN No results within date range. No results found for: HBA1C No results found for this or any previous visit (from the past 8760 hours). No results found for this or any previous visit (from the past 50274 hours). Instructions Given to Patient: Instructions located in the after visit summary. Patient given verbal and written preop instructions and voices comprehension and compliance. SIGNATURE: Eddie Wolf APRN.CNP PATIENT NAME: Sruthi Flowers DATE: September 23, 2024 TIME: 8:16 AM PAGER/CONTACT #: [facility] 09-23-2024 History and physical note Images from the original note were not included. [facility] HISTORY AND PHYSICAL EXAMINATION SERVICE DATE: 09/23/2024 SERVICE TIME: 8:39 AM PRIMARY CARE PHYSICIAN: Cheryle Werner MD Assessment Patient has the following medical conditions which may affect jennifer-operative course: Migraine without aura and without status migrainosus, not intractable Assessment: otc analgesics as needed CHR LYMPHOCYT THYROIDIT Assessment: under surveillance TSH Date Value Ref Range Status 03/11/2024 1.640 0.270 - 4.200 mIU/L Final Comment: If the patient is , TSH reference range varies by gestational period: First Trimester (weeks 9-12): 0.180-2.990 mIU/L Second Trimester: 0.110-3.980 mIU/L Third Trimester: 0.480-4.710 mIU/L Dale L, et al. A Practical Approach for the Verifications and Determination of Site- and Trimester-Specific Reference Intervals for Thyroid Function tests in . Thyroid, 2019:29:3:412-420. Edgar Whalen et al. 2017 Guidelines of the [place] [employer] for the Diagnosis and Management of Thyroid Disease during and the . Thyroid, 2017:27:3:315-389. Multinodular goiter Assessment: denies compressive symptoms ANESTHESIA FINDINGS: Intubation History: No prior intubation Significant Anesthesia Considerations: none Airway History: No prior intubation Case Activity Status Index: METS: Climb a flight of stairs or walk up a hill (5.50 METs) DASI Score: 5.5 Patient denies any chest pain or undue shortness of breath with the above physical activity. Clinical Frailty Scale: 1. Very fit STOP-Bang Score: Denies snoring loudly Denies feeling tired, fatigued, or sleepy during the daytime Has not been observed to stop breathing or choking/gasping during sleep Denies having high blood pressure BMI less than or equal to 35 kg/m^2 Patient 50 years old or younger Does not have a large neck Non-male patient STOP-Bang Score: 0 [id number] Score: Age: <65 Sex: female CHF history: No Hypertension history: No Stroke/TIA/thromboembolism history: No Vascular disease history: No Diabetes history: No [id number] Score: 1 ARISCAT Score: Age: <=50 Preoperative SpO2: >=96% Respiratory infection in the last month: No Preoperative anemia: No Surgical incision: peripheral Duration of surgery: <2 hrs Emergency procedure: No ARISCAT Score: 0 I - PHYSICAL EVALUATION AIRWAY Patient intubated: No. Tracheostomy tube not present Mallampati: I. TM distance: >3 FB. Neck ROM: full ROM without neurological symptoms. Mouth opening: adequate. Short neck: no. Thick neck: no Lux present: no Lip Bite Test: I Microretrognathia/Micronagthia/R ecessed Chin: No DENTAL Dental findings: teeth intact. Additional comments: +perm retainers. II - ANESTHESIA PLAN Anesthetic Plan: other Beta Joaquina Monitoring Plan Post Procedure Analgesic Plan Prepared for Surgery: optimally prepared for surgery. CONSULTS: Patient does not require consults for optimization at this time Planned Anesthetic: other anesthesia choice The Following Tests/Procedures Have Been Initiated: Orders Placed This Encounter Lactobacillus acidophilus (PROBIOTIC ORAL) Sig: Take by mouth. organ concentrates (ADRENAL ORAL) Sig: Take by mouth. REASON FOR VISIT: Sruthi Flowers is a 39 year old female who is scheduled for Procedure(s): LAPAROSCOPIC EXCISION CYST OVARIAN (Right) LAPAROSCOPIC OOPHORECTOMY (Right) at the request of Dr. Frances Trevizo for consultation. My final recommendation will be communicated back to the requesting physician by way of shared medical record or letter. Subjective The patient has the following: COVID-19 Immunization Status Completed or No Longer Recommended Covid-19 Vaccine (Series Information) Completed 04/17/2024 Imm Admin: COVID-19 vaccine, age 12+ yr (MODERNA) 04/26/2023 Imm Admin: COVID-19 vaccine, age 12+ yr, 2022-24 season (MODERNA) 05/11/2022 Imm Admin: COVID-19 vaccine, age 12+ yr, bivalent (MODERNA) Only the first 3 history entries have been loaded, but more history exists. CHIEF COMPLAINT: Pre-op exam HPI: Sruthi Flowers is a 39 year old seen for PAC due to scheduled above surgery because of an ovarian cyst. 08/20/2024, Dr. Frances Trevizo Please notify patient that cyst is overall stable- last time I saw her she did not want surgery. It has enlarged over the last 3 years- I am going to order CA 125 - does she want to consider laparoscopic removal of cyst? If not they are recommended repeat ultrasound 6 months. Left ovary still appears normal. REVIEW OF SYSTEMS: General: No weight loss, malaise or fevers. Neurological: Positive for: headaches (otc analgesics as needed). Respiratory: No history of current cough or dyspnea, or pneumonia in the past 6 weeks. No history of respiratory/pulmonary symptoms or problems. Cardiovascular: No history of HTN requiring medication, no history of angina, CHF, CA, cardiac surgery or stents. Denies rest pain, gangrene or revascularization/amputation for PVD. No history of cardiovascular symptoms or problems. GI: No history of GI symptoms or problems. No history of esophageal varices, recent ascites, or ETOH greater than 2 drinks per day. : No history of dysuria, frequency or incontinence, stones or chronic kidney disease. No difficulty urinating, nocturia > 1 time per night or hematuria. PULMONARY SPECIALIST: See HPI. Endocrine: +angelica's. No history of diabetes. Has not taken steroids within the past 30 days. No history of endocrinological symptoms or problems. Hematology: No history of bleeding or clotting disorder. Patient is not taking anti-coagulation or platelet medications. No history of hematological symptoms or problems. Oncology: No history of CA metastasis, chemo within 30 days, or radiotherapy within 90 days. No history of oncological symptoms or problems. Psych: No history of psychiatric symptoms or problems. Musculoskeletal: Negative for joint pain or swelling, back pain or muscle pain. Skin: Negative for lesions, rash and itching. Implanted Devices: No implanted devices. PAST MEDICAL HISTORY Diagnosis Date Allergic rhinitis, cause unspecified Chronic lymphocytic thyroiditis Excessive or frequent menstruation WITH IRREGULAR PERIODS Irregular menstrual cycle Migraine without aura and without status migrainosus, not intractable 02/13/2017 jagdeep aura; not often now. Mostly tension headaches Syncope and collapse LIFETIME VASO VAGAL SYNDROME PAST SURGICAL HISTORY Procedure Laterality Date EXTRACTION ERUPTED TOOTH/EXR FAMILY HISTORY Problem Relation Age of Onset Heart Mother IRREGULAR HEART BEAT/ heart virus Melanoma Father other (CONNECTIVE TISSUE DISEASE) Brother Hypertension Brother Prostate Cancer Paternal Grandfather Cancer Paternal Aunt Rectal with mets Cancer Paternal Uncle Social History Tobacco Use Smoking status: Never Smokeless tobacco: Never Vaping Use Vaping status: Never Used Substance Use Topics Alcohol use: Yes Comment: One to Two Times Per Month Drug use: No Prior to Admission medications as of 09/23/24 0823 Medication Sig Last Dose Taking Lactobacillus acidophilus (PROBIOTIC ORAL) Take by mouth. Yes organ concentrates (ADRENAL ORAL) Take by mouth. Yes TRI-SPRINTEC 0.18/0.215/0.25 mg-35 mcg (28) Take 1 tablet by mouth once daily. Yes fluticasone (FLONASE) 50 mcg/actuation nasal spray Use 1-2 Sprays in each nostril once daily. Yes ondansetron orally disintegrating (ZOFRAN ODT) 4 mg disintegrating tablet Take 1 tablet by mouth every 6 hours as needed for nausea/vomiting. Yes Wpemvna-Klakdolrvtpdr-Iuwutxzo (EXCEDRIN MIGRAINE) 250-250-65 mg per tablet Take 1 tablet by mouth every 6 hours as needed. (does not need often) Yes fexofenadine (MIGUEL) 180 mg tablet Take 1 tablet by mouth once daily. During allergy season Yes Cholecalciferol, Vitamin D3, 1,000 unit cap Take 1 capsule by mouth once daily. Yes VITAMIN C 1,000 MG TAB Take one(1) tablet daily. Yes MULTIVITAMIN TAB Take one(1) tablet daily. Yes No medication comments found. ALLERGIES Allergen Reactions Horse Dander Intolerance Seasonal Allergies Intolerance Dogs, trees Objective PHYSICAL EXAM: General: alert and oriented (x3) and healthy appearance. Pertinent negatives noted - not distressed. Skin: normal color, no rash or lesions. HEENT: EOM intact and pupils equal round. Pertinent negatives noted - no carotid bruit. Cardiovascular: regular rate and rhythm, normal S1 and S2, no rub, murmurs, or gallop. Respiratory: normal breath sounds, no wheezes or crackles. No chest wall deformity or tenderness. Abdomen: soft. Pertinent negatives noted - not tender. Extremities: no deformity, no edema or tenderness, no joint swelling or clubbing. Neurological: normal cognition and motor skills. Gait normal. No weakness or sensory deficit. PAIN ASSESSMENT: VITALS: BP 126/92 Pulse 87 Temp (Src) 98.5 (Temporal) Resp 14 Ht 5' 4.5 (1.64m) Wt 142 lb (64.4kg) SpO2 98% LMP 09/20/2024 BMI 24.01 kg/(m^2). Diagnostic tests reviewed for today's visit: Lab Value Units Date High Low HB 13.6 g/dL 07/22/2024 15.5 11.5 HCT 41.0 % 07/22/2024 46.0 36.0 WBC 10.47 k/uL 07/22/2024 11.00 3.70 PLT 389 k/uL 07/22/2024 400 150 NA 140 mmol/L 06/27/2024 144 136 K 4.4 mmol/L 06/27/2024 5.1 3.7 GLUC 91 mg/dL 06/27/2024 99 74 BUN 11 mg/dL 06/27/2024 21 7 CREAT 0.69 mg/dL 06/27/2024 0.96 0.58 PTSEC No results within date range. INR No results within date range. APTT No results within date range. ALT 13 U/L 06/27/2024 38 7 AST 20 U/L 06/27/2024 35 13 TBILI <0.2 mg/dL 06/27/2024 1.3 0.2 TSH No results within date range. Lab Value Units Date High Low HCGQT No results within date range. UHCG No results within date range. HCG, BODY* No results within date range. Lab Value Units Date High Low ABORHD No results within date range. ABSCREEN No results within date range. No results found for: HBA1C No results found for this or any previous visit (from the past 8760 hours). No results found for this or any previous visit (from the past 38184 hours). Instructions Given to Patient: Instructions located in the after visit summary. Patient given verbal and written preop instructions and voices comprehension and compliance. SIGNATURE: Eddie Wolf APRN.CNP PATIENT NAME: Sruthi Flowers DATE: September 23, 2024 TIME: 8:16 AM PAGER/CONTACT #: documented [facility] this encounter [facility] [facility] Telephone encounter Note FMLA paperwork completed. Patient notified and would like to flower picker. Placed at [employer] front line supervisor. Vinay Vieyra MA [facility] 09-22-2024 Miscellaneous Notes FMLA paperwork completed. Patient notified and would like to flower picker. Placed at [employer]SS front line supervisor. Vinay Vieyra MA FMLA paperwork on providers desk for signature. Vinay Vieyra MA Printed and placed in [facility] mailbox. Leesa Fuentes RN documented in this encounter [facility] 09-21-2024 Telephone encounter Note FMLA paperwork on providers desk for signature. Vinay Vieyra MA [facility] 09-15-2024 Telephone encounter Note Signed. [facility] 09-15-2024 Miscellaneous Notes Signed. Please approve surgery at [facility] on 10/04/24 documented in this encounter [facility] 09-15-2024 Telephone encounter Note Please approve surgery at [facility] on 10/04/24 [facility] 09-15-2024 Telephone encounter Note Printed and placed in [facility] mailbox. Leesa Fuentes RN [facility] 09-15-2024 Telephone encounter Note Last OV 09/28/23. Upcoming appt 03/30/25. Requested Prescriptions Pending Prescriptions Disp Refills TRI-SPRINTEC 0.18/0.215/0.25 mg-35 mcg (28) 84 tablet 3 Sig: Take 1 tablet by mouth once daily. Patient comment: Need enough to get through March. Thank you Bryanna Rutherford, RN [facility] 09-15-2024 Miscellaneous Notes Last OV 09/28/23. Upcoming appt 03/30/25. Requested Prescriptions Pending Prescriptions Disp Refills TRI-SPRINTEC 0.18/0.215/0.25 mg-35 mcg (28) 84 tablet 3 Sig: Take 1 tablet by mouth once daily. Patient comment: Need enough to get through March. Thank you Bryanna Rutherford RN documented in this encounter [facility] 09-12-2024 Telephone encounter Note Pt called to see if her surgery was scheduled yet and to schedule pre-op. Advised her message would be sent to imaging schedulerLillian and she would be in contact with her. Tried to schedule pre-op appt; however, DM doesn't have any 20 minute appt spots open until 10/05/24. Bryanna Rutherford RN [facility] 09-12-2024 Miscellaneous Notes Pt called to see if her surgery was scheduled yet and to schedule pre-op. Advised her message would be sent to imaging schedulerLillian and she would be in contact with her. Tried to schedule pre-op appt; however, DM doesn't have any 20 minute appt spots open until 10/05/24. Bryanna Rutherford RN documented in this encounter [facility] 08-29-2024 Telephone encounter Note Surgery sheet given to team leader surgeryLillian. Bryanna Rutherford RN [facility] 08-29-2024 Miscellaneous Notes Surgery sheet given to team leader surgeryLillian. Bryanna Rutherford RN OR booking sheet filled out. Patient called. She has decided that she would like to proceed with laparoscopic removal of cyst. Surgery sheet to DM to complete. Aware team leader surgery will call her in the next 1-2 weeks with the next available surgery dates. No upcoming vacations etc. Asia Valdes RN documented in this encounter [facility] 08-29-2024 Telephone encounter Note OR booking sheet filled out. [facility] 08-29-2024 Telephone encounter Note Patient called. She has decided that she would like to proceed with laparoscopic removal of cyst. Surgery sheet to DM to complete. Aware team leader surgery will call her in the next 1-2 weeks with the next available surgery dates. No upcoming vacations etc. Asia Valdes RN [facility] 08-22-2024 Telephone encounter Note Patient notified. She had her CA 125 drawn - normal. Wants to think about surgery. Will call the office or let DM know at her upcoming appointment in September. Asia Valdes RN [facility] 08-22-2024 Miscellaneous Notes Patient notified. She had her CA 125 drawn - normal. Wants to think about surgery. Will call the office or let DM know at her upcoming appointment in September. Asia Valdes RN Left message for patient to call office. See below message from Dr. Trevizo regarding pelvic US. Asia Valdes RN Please notify patient that cyst is overall stable- last time I saw her she did not want surgery. It has enlarged over the last 3 years- I am going to order CA 125 - does she want to consider laparoscopic removal of cyst? If not they are recommended repeat ultrasound 6 months. Left ovary still appears normal. documented in this encounter [facility] 08-22-2024 Telephone encounter Note Left message for patient to call office. See below message from Dr. Trevizo regarding pelvic US. Asia Valdes RN Please notify patient that cyst is overall stable- last time I saw her she did not want surgery. It has enlarged over the last 3 years- I am going to order CA 125 - does she want to consider laparoscopic removal of cyst? If not they are recommended repeat ultrasound 6 months. Left ovary still appears normal. [facility] 08-17-2024 Note HNO ID: [id number] Author: TOMASA OWEN MD Service: ? Author Type: Physician Type: Progress Notes Filed: 08/17/2024 07:27 Note Text: Sruthi Flowers is a 39 year old female who presented for outside machinist supervisor ultrasound today. Encounter Diagnosis ICD-10-CM 1. Ovarian cyst, right N83.201 Please see report under imaging tab. Tomasa Owen MD August 17, 2024 7:[address] [facility] 08-17-2024 History of Present illness Narrative Sruthi Flowers is a 39 year old female who presented for outside machinist supervisor ultrasound today. Encounter Diagnosis ICD-10-CM 1. Ovarian cyst, right N83.201 Please see report under imaging tab. Tomasa Owen MD August 17, 2024 7:17 AM documented in this encounter [facility] 07-05-2024 Note HNO ID: [id number] Author: CARLOZ WILLIS PA-C Service: ? Author Type: Physician Machine Silver Stripper Type: Progress Notes Filed: 07/05/2024 08:49 Note Text: This note was created using [email or web address]. Subjective Sruthi Flowers is a 39 year old female. Patient is a 39-year-old female complains of ongoing and worsening congestion, sinus pressure, ear pain and throat irritation that she has been experiencing for the past 1 month. Patient reports a slight, irritating cough. Patient denies fever, chills or myalgia. Patient is experiencing increasing frontal and facial headaches. Patient has a history of recurrent sinus infections and states that her current symptoms are consistent with same. Patient has been using clct-mhp-[id number] medications with no improvement in her symptoms. Review of Systems HENT: Positive for congestion, postnasal drip, sinus pressure and sinus pain. Respiratory: Positive for cough. Neurological: Positive for headaches. All other systems reviewed and are negative. Objective BP 138/98 Pulse 102 Temp 36.3 ?C (97.4 ?F) Resp 18 Wt 67.1 kg (147 lb 14.9 oz) LMP 06/28/2024 (Exact Date) SpO2 99% BMI 25.00 kg/m? Physical Exam Vitals and nursing note reviewed. Constitutional: Appearance: Normal appearance. She is normal weight. HENT: Head: Normocephalic and atraumatic. Right Ear: Tympanic membrane, ear canal and external ear normal. Left Ear: Tympanic membrane, ear canal and external ear normal. Nose: Nose normal. Mouth/Throat: Mouth: Mucous membranes are moist. Pharynx: Oropharynx is clear. Eyes: Extraocular Movements: Extraocular movements intact. Conjunctiva/sclera: Conjunctivae normal. Pupils: Pupils are equal, round, and reactive to light. Cardiovascular: Rate and Rhythm: Normal rate and regular rhythm. Pulses: Normal pulses. Heart sounds: Normal heart sounds. Pulmonary: Effort: Pulmonary effort is normal. Breath sounds: Normal breath sounds. Musculoskeletal: Cervical back: Normal range of motion and neck supple. Skin: General: Skin is warm and dry. Capillary Refill: Capillary refill takes less than 2 seconds. Neurological: General: No focal deficit present. Mental Status: She is alert and oriented to person, place, and time. Psychiatric: Mood and Affect: Mood normal. Behavior: Behavior normal. Thought Content: Thought content normal. Judgment: Judgment normal. Assessment and Plan Physical exam findings as noted above. Patient was provided with a prescription for Augmentin 875-125 mg and supportive care instructions were discussed. Patient verbalizes excellent understanding of same. CLINICAL IMPRESSION: Acute Sinusitis ASSESSMENT/PLAN: 1. Acute recurrent sinusitis, unspecified location - ICD9: 461.9, ICD10: J01.91 - AMOXICILLIN 875 MG-POTASSIUM CLAVULANATE 125 MG TABLET Carloz Willis PA-C [facility] 07-05-2024 History of Present illness Narrative This note was created using [employer]. Subjective Sruthi Flowers is a 39 year old female. Patient is a 39-year-old female complains of ongoing and worsening congestion, sinus pressure, ear pain and throat irritation that she has been experiencing for the past 1 month. Patient reports a slight, irritating cough. Patient denies fever, chills or myalgia. Patient is experiencing increasing frontal and facial headaches. Patient has a history of recurrent sinus infections and states that her current symptoms are consistent with same. Patient has been using [id number]-[id number] medications with no improvement in her symptoms. Review of Systems HENT: Positive for congestion, postnasal drip, sinus pressure and sinus pain. Respiratory: Positive for cough. Neurological: Positive for headaches. All other systems reviewed and are negative. Objective BP 138/98 Pulse 102 Temp 36.3 C (97.4 F) Resp 18 Wt 67.1 kg (147 lb 14.9 oz) LMP 06/28/2024 (Exact Date) SpO2 99% BMI 25.00 kg/m Physical Exam Vitals and nursing note reviewed. Constitutional: Appearance: Normal appearance. She is normal weight. HENT: Head: Normocephalic and atraumatic. Right Ear: Tympanic membrane, ear canal and external ear normal. Left Ear: Tympanic membrane, ear canal and external ear normal. Nose: Nose normal. Mouth/Throat: Mouth: Mucous membranes are moist. Pharynx: Oropharynx is clear. Eyes: Extraocular Movements: Extraocular movements intact. Conjunctiva/sclera: Conjunctivae normal. Pupils: Pupils are equal, round, and reactive to light. Cardiovascular: Rate and Rhythm: Normal rate and regular rhythm. Pulses: Normal pulses. Heart sounds: Normal heart sounds. Pulmonary: Effort: Pulmonary effort is normal. Breath sounds: Normal breath sounds. Musculoskeletal: Cervical back: Normal range of motion and neck supple. Skin: General: Skin is warm and dry. Capillary Refill: Capillary refill takes less than 2 seconds. Neurological: General: No focal deficit present. Mental Status: She is alert and oriented to person, place, and time. Psychiatric: Mood and Affect: Mood normal. Behavior: Behavior normal. Thought Content: Thought content normal. Judgment: Judgment normal. Assessment and Plan Physical exam findings as noted above. Patient was provided with a prescription for Augmentin 875-125 mg and supportive care instructions were discussed. Patient verbalizes excellent understanding of same. CLINICAL IMPRESSION: Acute Sinusitis ASSESSMENT/PLAN: 1. Acute recurrent sinusitis, unspecified location - ICD9: 461.9, ICD10: J01.91 - AMOXICILLIN 875 MG-POTASSIUM CLAVULANATE 125 MG TABLET Carloz Willis PA-C documented in this encounter [facility] 06-27-2024 Note HNO ID: [id number] Author: FILOMENA CASTORENA APRN.METALWORKING SPECIALIST Service: ? Author Type: Nurse Practitioner Type: Progress Notes Filed: 06/27/2024 08:42 Note Text: CC: Patient presents with: Mass: LT neck and RT groin x 3 weeks HPI Sruthi Flowers is a 39 year old female who presents today for above. She developed fatigue and chills one evening a few weeks ago, the next day she noticed the lymph nodes on the left side of her neck were painful and swollen. Symptoms resolved that day except the nodes remained swollen. They are no longer painful now but have not decreased in size. She also noticed a swollen node in the right groin around the same time. Overall she is feeling really well, see ROS. Review of Systems Constitutional: Negative for activity change, appetite change, chills, diaphoresis, fatigue, fever and unexpected weight change. HENT: Negative for congestion, ear pain, postnasal drip, rhinorrhea, sinus pressure, sinus pain, sneezing, sore throat, trouble swallowing and voice change. Respiratory: Negative for cough, shortness of breath and wheezing. Cardiovascular: Negative for chest pain, palpitations and leg swelling. Gastrointestinal: Negative for abdominal distention, abdominal pain, blood in stool, constipation, diarrhea, nausea and vomiting. Genitourinary: Negative for decreased urine volume, difficulty urinating, dysuria, frequency, hematuria, pelvic pain, urgency and vaginal discharge. Musculoskeletal: Negative for arthralgias, back pain, joint swelling, myalgias and neck pain. Skin: Negative for pallor and rash. Allergic/Immunologic: Negative for environmental allergies and immunocompromised state. Neurological: Negative for weakness. Hematological: Does not bruise/bleed easily. PAST MEDICAL HISTORY Diagnosis Date Allergic rhinitis, cause unspecified Chronic lymphocytic thyroiditis Excessive or frequent menstruation WITH IRREGULAR PERIODS Irregular menstrual cycle Migraine without aura and without status migrainosus, not intractable 02/13/2017 jagdeep aura; not often now. Mostly tension headaches Syncope and collapse LIFETIME VASO VAGAL SYNDROME PAST SURGICAL HISTORY Procedure Laterality Date NONE ALLERGIES Horse Dander and Seasonal Allergies MEDICATIONS fluticasone (FLONASE) 50 mcg/actuation nasal spray Use 1-2 Sprays in each nostril once daily. ondansetron orally disintegrating (ZOFRAN ODT) 4 mg disintegrating tablet Take 1 tablet by mouth every 6 hours as needed for nausea/vomiting. TRI-SPRINTEC 0.18/0.215/0.25 mg-35 mcg (28) Take 1 tablet by mouth once daily. Tfevnzl-Wpuupvxyvggxb-Sbwziykl (EXCEDRIN MIGRAINE) 250-250-65 mg per tablet Take 1 tablet by mouth every 6 hours as needed. (does not need often) fexofenadine (MIGUEL) 180 mg tablet Take 1 tablet by mouth once daily. During allergy season Cholecalciferol, Vitamin D3, 1,000 unit cap Take 1 capsule by mouth once daily. VITAMIN C 1,000 MG TAB Take one(1) tablet daily. MULTIVITAMIN TAB Take one(1) tablet daily. FAMILY HISTORY Problem Relation Age of Onset Heart Mother IRREGULAR HEART BEAT/ heart virus Melanoma Father other (CONNECTIVE TISSUE DISEASE) Brother Hypertension Brother Prostate Cancer Paternal Grandfather Cancer Paternal Aunt Rectal with mets Cancer Paternal Uncle Social History Tobacco Use Smoking status: Never Smokeless tobacco: Never Vaping Use Vaping status: Never Used Substance Use Topics Alcohol use: Yes Comment: One to Two Times Per Month Drug use: No BP 120/78 Pulse 72 Resp 14 Wt 67.8 kg (149 lb 7.6 oz) LMP 02/09/2023 (Approximate) SpO2 96% BMI 25.26 kg/m? Physical Exam Vitals reviewed. Constitutional: General: She is not in acute distress. Appearance: Normal appearance. She is not ill-appearing or toxic-appearing. HENT: Head: Normocephalic and atraumatic. Right Ear: Tympanic membrane normal. Left Ear: Tympanic membrane normal. Nose: No mucosal edema, congestion or rhinorrhea. Right Sinus: No maxillary sinus tenderness or frontal sinus tenderness. Left Sinus: No maxillary sinus tenderness or frontal sinus tenderness. Mouth/Throat: Lips: [place]. Mouth: Mucous membranes are moist. Pharynx: Oropharynx is clear. Eyes: Conjunctiva/sclera: Conjunctivae normal. Neck: Thyroid: No thyroid mass, thyromegaly or thyroid tenderness. Cardiovascular: Rate and Rhythm: Normal rate and regular rhythm. Pulses: Normal pulses. Heart sounds: Normal heart sounds. No murmur heard. Pulmonary: Effort: Pulmonary effort is normal. Breath sounds: Normal breath sounds. No wheezing, rhonchi or rales. Abdominal: General: Bowel sounds are normal. There is no distension. Palpations: Abdomen is soft. There is no hepatomegaly, splenomegaly or mass. Tenderness: There is no abdominal tenderness. Lymphadenopathy: Head: Right side of head: No submental, submandibular, tonsillar, preauricular, posterior auricular or occi (more content not included)... [facility] 06-27-2024 History of Present illness Narrative CC: Patient presents with: Mass: LT neck and RT groin x 3 weeks HPI Sruthi Floewrs is a 39 year old female who presents today for above. She developed fatigue and chills one evening a few weeks ago, the next day she noticed the lymph nodes on the left side of her neck were painful and swollen. Symptoms resolved that day except the nodes remained swollen. They are no longer painful now but have not decreased in size. She also noticed a swollen node in the right groin around the same time. Overall she is feeling really well, see ROS. Review of Systems Constitutional: Negative for activity change, appetite change, chills, diaphoresis, fatigue, fever and unexpected weight change. HENT: Negative for congestion, ear pain, postnasal drip, rhinorrhea, sinus pressure, sinus pain, sneezing, sore throat, trouble swallowing and voice change. Respiratory: Negative for cough, shortness of breath and wheezing. Cardiovascular: Negative for chest pain, palpitations and leg swelling. Gastrointestinal: Negative for abdominal distention, abdominal pain, blood in stool, constipation, diarrhea, nausea and vomiting. Genitourinary: Negative for decreased urine volume, difficulty urinating, dysuria, frequency, hematuria, pelvic pain, urgency and vaginal discharge. Musculoskeletal: Negative for arthralgias, back pain, joint swelling, myalgias and neck pain. Skin: Negative for pallor and rash. Allergic/Immunologic: Negative for environmental allergies and immunocompromised state. Neurological: Negative for weakness. Hematological: Does not bruise/bleed easily. PAST MEDICAL HISTORY Diagnosis Date Allergic rhinitis, cause unspecified Chronic lymphocytic thyroiditis Excessive or frequent menstruation WITH IRREGULAR PERIODS Irregular menstrual cycle Migraine without aura and without status migrainosus, not intractable 02/13/2017 jagdeep aura; not often now. Mostly tension headaches Syncope and collapse LIFETIME VASO VAGAL SYNDROME PAST SURGICAL HISTORY Procedure Laterality Date NONE ALLERGIES Horse Dander and Seasonal Allergies MEDICATIONS fluticasone (FLONASE) 50 mcg/actuation nasal spray Use 1-2 Sprays in each nostril once daily. ondansetron orally disintegrating (ZOFRAN ODT) 4 mg disintegrating tablet Take 1 tablet by mouth every 6 hours as needed for nausea/vomiting. TRI-SPRINTEC 0.18/0.215/0.25 mg-35 mcg (28) Take 1 tablet by mouth once daily. Ddyjvbg-Nznjnveewfaal-Cratjcna (EXCEDRIN MIGRAINE) 250-250-65 mg per tablet Take 1 tablet by mouth every 6 hours as needed. (does not need often) fexofenadine (MIGUEL) 180 mg tablet Take 1 tablet by mouth once daily. During allergy season Cholecalciferol, Vitamin D3, 1,000 unit cap Take 1 capsule by mouth once daily. VITAMIN C 1,000 MG TAB Take one(1) tablet daily. MULTIVITAMIN TAB Take one(1) tablet daily. FAMILY HISTORY Problem Relation Age of Onset Heart Mother IRREGULAR HEART BEAT/ heart virus Melanoma Father other (CONNECTIVE TISSUE DISEASE) Brother Hypertension Brother Prostate Cancer Paternal Grandfather Cancer Paternal Aunt Rectal with mets Cancer Paternal Uncle Social History Tobacco Use Smoking status: Never Smokeless tobacco: Never Vaping Use Vaping status: Never Used Substance Use Topics Alcohol use: Yes Comment: One to Two Times Per Month Drug use: No BP 120/78 Pulse 72 Resp 14 Wt 67.8 kg (149 lb 7.6 oz) LMP 02/09/2023 (Approximate) SpO2 96% BMI 25.26 kg/m Physical Exam Vitals reviewed. Constitutional: General: She is not in acute distress. Appearance: Normal appearance. She is not ill-appearing or toxic-appearing. HENT: Head: Normocephalic and atraumatic. Right Ear: Tympanic membrane normal. Left Ear: Tympanic membrane normal. Nose: No mucosal edema, congestion or rhinorrhea. Right Sinus: No maxillary sinus tenderness or frontal sinus tenderness. Left Sinus: No maxillary sinus tenderness or frontal sinus tenderness. Mouth/Throat: Lips: [place]. Mouth: Mucous membranes are moist. Pharynx: Oropharynx is clear. Eyes: Conjunctiva/sclera: Conjunctivae normal. Neck: Thyroid: No thyroid mass, thyromegaly or thyroid tenderness. Cardiovascular: Rate and Rhythm: Normal rate and regular rhythm. Pulses: Normal pulses. Heart sounds: Normal heart sounds. No murmur heard. Pulmonary: Effort: Pulmonary effort is normal. Breath sounds: Normal breath sounds. No wheezing, rhonchi or rales. Abdominal: General: Bowel sounds are normal. There is no distension. Palpations: Abdomen is soft. There is no hepatomegaly, splenomegaly or mass. Tenderness: There is no abdominal tenderness. Lymphadenopathy: Head: Right side of head: No submental, submandibular, tonsillar, preauricular, posterior auricular or occipital adenopathy. Left side of head: No submental, submandibular, tonsillar, preauricular, posterior auricular or occipital adenopathy. Cervical: Cervical adenopathy present. Right cervical: No superficial, deep or posterior cervical adenopathy. Left cervical: Superficial cervical adenopathy (less than 1 cm, soft, mobile, non-tender) present. No deep or posterior cervical adenopathy. Upper Body: Right upper body: No supraclavicular, axillary, pectoral or epitrochlear adenopathy. Left upper body: No supraclavicular, axillary, pectoral or epitrochlear adenopathy. Lower Body: Right inguinal adenopathy (< 1 cm, soft, mobile, non-tender) present. No left inguinal adenopathy. Skin: General: Skin is warm and dry. Findings: No rash. Neurological: Mental Status: She is alert. Psychiatric: Mood and Affect: Mood normal. ASSESSMENT/PLAN: 1. Cervical lymphadenopathy - ICD9: 785.6, ICD10: R59.0 (primary diagnosis) Etiology unclear. No alarm symptoms or exam findings. Check labs: - COMPLETE BLOOD COUNT AND DIFFERENTIAL - COMPREHENSIVE METABOLIC PANEL If normal recommend monitoring x 2 weeks, if remain swollen will evaluate further with ultrasound or sooner if any worsening. 2. Inguinal adenopathy - ICD9: 785.6, ICD10: R59.0 As above Prescription instructions reviewed with patient as applicable. Potential red flag symptoms discussed with the patient. Reviewed appropriate action plan to take if red flag symptoms occur. Patient agreeable to treatment plan. Filomena Castorena APRN.METALWORKING SPECIALIST documented in this encounter [facility] 06-24-2024 Telephone encounter Note Patient calls for swollen lymph nodes on left side of neck x 16 days. Nurse triage completed. Protocol recommends see provider within 2 weeks. Appt scheduled with available provider for Thursday when patient is able to come in with.Care advice reviewed with verbalized understanding. Reason for Disposition [1] Large node AND [2] present > 2 weeks Answer Assessment - Initial Assessment Questions 1. LOCATION: Patient reports several areas on the left side of the neck. 2. SIZE: pea to grape 3. ONSET:Over two weeks ago 4. NECK NODES: No sore throat, runny nose or other symptoms of a cold? 5. GROIN OR ARMPIT NODES: No 6. FEVER: No 7. CAUSE: Patient reports a couple of weeks ago a sore throat and feeling a little feverish but that went away last week. 8. OTHER SYMPTOMS: No Protocols used: Lymph Nodes - [id number] [facility] 06-24-2024 Miscellaneous Notes Patient calls for swollen lymph nodes on left side of neck x 16 days. Nurse triage completed. Protocol recommends see provider within 2 weeks. Appt scheduled with available provider for Thursday when patient is able to come in with.Care advice reviewed with verbalized understanding. Reason for Disposition [1] Large node AND [2] present > 2 weeks Answer Assessment - Initial Assessment Questions 1. LOCATION: Patient reports several areas on the left side of the neck. 2. SIZE: pea to grape 3. ONSET:Over two weeks ago 4. NECK NODES: No sore throat, runny nose or other symptoms of a cold? 5. GROIN OR ARMPIT NODES: No 6. FEVER: No 7. CAUSE: Patient reports a couple of weeks ago a sore throat and feeling a little feverish but that went away last week. 8. OTHER SYMPTOMS: No Protocols used: Lymph Nodes - Uajuole-[id number]-BL documented in this encounter [facility] 03-11-2024 Instructions Cheryle Werner MD - 03/11/2024 10:08 AM EDT -Ondansetron (Zofran) prescription has been sent to your pharmacy - Flonase prescription has been refilled - Monitor your hydration levels and try to drink water regularly, especially when not at work - Keep track of your migraine triggers and let us know if the frequency or severity of your migraines increases - Monitor for any new or worsening symptoms and contact us if you have any concerns documented in this encounter [facility] 03-11-2024 Note HNO ID: [id number] Author: CHERYLE WERNER MD Service: ? Author Type: Physician Type: Progress Notes Filed: 03/11/2024 10:10 Note Text: This note was created using [email or web address]. Subjective Sruthi Flowers is a 38 year old female. HISTORY Sruthi Flowers is a 38 year old lady here for yearly exam and follow up appointment. Patient is a 38-year-old female presenting today for yearly exam and follow up. Present with increased frequency of migraines, now occurring 1-2 times per month. She describes the migraines as severe, with associated nausea and head pounding, but denies photophobia. She is able to function through the migraines, but they are described as pretty bad. She has been using Excedrin to manage the migraines and tries to nip them before they get really bad, but sometimes wakes up with them. She has previously used Zofran for nausea associated with migraines, but has run out and is requesting a refill. She denies any obvious triggers for the migraines, but suspects dehydration and stress may be contributing factors. 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 She tries to rehydrate after work. She denies any changes in family history and has 4 brothers and 1 sister. She denies any symptoms of hypothyroidism. PAST MEDICAL HISTORY No date: Allergic rhinitis, cause unspecified No date: Chronic lymphocytic thyroiditis No date: Excessive or frequent menstruation Comment: WITH IRREGULAR PERIODS No date: Irregular menstrual cycle 02/13/2017: Migraine without aura and without status migrainosus, not intractable Comment: jagdeep aura; not often now. Mostly tension headaches LIFETIME: Syncope and collapse Comment: VASO VAGAL SYNDROME Current Outpatient Medications Medication Sig TRI-SPRINTEC 0.18/0.215/0.25 mg-35 mcg (28) Take 1 tablet by mouth once daily. fluticasone (FLONASE) 50 mcg/actuation nasal spray Use 1-2 Sprays in each nostril once daily. Uvlzibk-Lghncujdogxxq-Qhlzspxo (EXCEDRIN MIGRAINE) 250-250-65 mg per tablet Take 1 tablet by mouth every 6 hours as needed. (does not need often) fexofenadine (MIGUEL) 180 mg tablet Take 1 tablet by mouth once daily. During allergy season Cholecalciferol, Vitamin D3, 1,000 unit cap Take 1 capsule by mouth once daily. VITAMIN C 1,000 MG TAB Take one(1) tablet daily. MULTIVITAMIN TAB Take one(1) tablet daily. No current facility-administered medications for this visit. ALLERGIES Allergen Reactions Horse Dander Intolerance Seasonal Allergies Intolerance Dogs, trees FAMILY HISTORY Problem Relation Age of Onset Heart Mother IRREGULAR HEART BEAT/ heart virus Melanoma Father other (CONNECTIVE TISSUE DISEASE) Brother Hypertension Brother Prostate Cancer Paternal Grandfather Cancer Paternal Aunt Rectal with mets Cancer Paternal Uncle Social History Tobacco Use Smoking status: Never Smokeless tobacco: Never Vaping Use Vaping status: Never Used Substance Use Topics Alcohol use: Yes Comment: One to Two Times Per Month Drug use: No Review of Systems Objective BP 134/64 (BP Site: Left Arm, BP Position: Sitting, BP Cuff Size: Regular Adult) Pulse 70 Resp 12 Ht 163.8 cm (5' 4.5) Wt 63.4 kg (139 lb 12.4 oz) LMP 02/09/2023 (Approximate) SpO2 100% BMI 23.62 kg/m? Last 5 Encounter Wt Readings: Date: Wt: 03/11/2024 63.4 kg (139 lb 12.4 oz) 09/28/2023 67.6 kg (149 lb) 06/27/2023 68.1 kg (150 lb 3.2 oz) 03/02/2023 66.2 kg (146 lb) 09/15/2022 67.1 kg (148 lb) No waist measurement recorded Estimated body mass index is 23.62 kg/m? as calculated from the following: Height as of this encounter: 163.8 cm (5' 4.5). Weight as of this encounter: 63.4 kg (139 lb 12.4 oz). Last 5 Encounter BP Readings: Date: BP: 03/11/2024 134/64 09/28/2023 134/82 06/27/2023 162/109 03/02/2023 120/78 09/15/2022 126/74 Physical Exam Vitals reviewed. Constitutional: Appearance: Normal appearance. She is well-developed. HENT: Head: Normocephalic and atraumatic. Right Ear: Tympanic membrane, ear canal and external ear normal. Left Ear: Tympanic membrane, ear canal and external ear normal. Nose: Nose normal. Mouth/Throat: Mouth: Mucous membranes are moist. Eyes: Conjunctiva/sclera: Conjunctivae normal. Neck: Thyroid: No thyromegaly. Vascular: No carotid bruit. Cardiovascular: Rate and Rhythm: Normal rate and regular rhythm. Pulses: Normal pulses. Heart sounds: Normal heart sounds. No murmur heard. No friction rub. No gallop. Pulmonary: Effort: Pulmonary effort is normal. Breath sounds: Normal breath sounds. Abdominal: General: Bowel sounds are normal. There is no distension. Palpations: Abdomen is soft. There is no mass. Tenderness: There is no abdominal tenderness. Musculoskeletal: General: No deformity. Normal range of motion. Right lower leg: No edema. Left lower leg: No edema. Lymph (more content not included)... [facility] 03-11-2024 History of Present illness Narrative This note was created using [email or web address]. Subjective Sruthi Flowers is a 38 year old female. HISTORY Sruthi Flowers is a 38 year old lady here for yearly exam and follow up appointment. Patient is a 38-year-old female presenting today for yearly exam and follow up. Present with increased frequency of migraines, now occurring 1-2 times per month. She describes the migraines as severe, with associated nausea and head pounding, but denies photophobia. She is able to function through the migraines, but they are described as pretty bad. She has been using Excedrin to manage the migraines and tries to nip them before they get really bad, but sometimes wakes up with them. She has previously used Zofran for nausea associated with migraines, but has run out and is requesting a refill. She denies any obvious triggers for the migraines, but suspects dehydration and stress may be contributing factors. 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 She tries to rehydrate after work. She denies any changes in family history and has 4 brothers and 1 sister. She denies any symptoms of hypothyroidism. PAST MEDICAL HISTORY No date: Allergic rhinitis, cause unspecified No date: Chronic lymphocytic thyroiditis No date: Excessive or frequent menstruation Comment: WITH IRREGULAR PERIODS No date: Irregular menstrual cycle 02/13/2017: Migraine without aura and without status migrainosus, not intractable Comment: jagdeep aura; not often now. Mostly tension headaches LIFETIME: Syncope and collapse Comment: VASO VAGAL SYNDROME Current Outpatient Medications Medication Sig TRI-SPRINTEC 0.18/0.215/0.25 mg-35 mcg (28) Take 1 tablet by mouth once daily. fluticasone (FLONASE) 50 mcg/actuation nasal spray Use 1-2 Sprays in each nostril once daily. Ndtzuvw-Oytgajplotvqf-Naiayoon (EXCEDRIN MIGRAINE) 250-250-65 mg per tablet Take 1 tablet by mouth every 6 hours as needed. (does not need often) fexofenadine (MIGUEL) 180 mg tablet Take 1 tablet by mouth once daily. During allergy season Cholecalciferol, Vitamin D3, 1,000 unit cap Take 1 capsule by mouth once daily. VITAMIN C 1,000 MG TAB Take one(1) tablet daily. MULTIVITAMIN TAB Take one(1) tablet daily. No current facility-administered medications for this visit. ALLERGIES Allergen Reactions Horse Dander Intolerance Seasonal Allergies Intolerance Dogs, trees FAMILY HISTORY Problem Relation Age of Onset Heart Mother IRREGULAR HEART BEAT/ heart virus Melanoma Father other (CONNECTIVE TISSUE DISEASE) Brother Hypertension Brother Prostate Cancer Paternal Grandfather Cancer Paternal Aunt Rectal with mets Cancer Paternal Uncle Social History Tobacco Use Smoking status: Never Smokeless tobacco: Never Vaping Use Vaping status: Never Used Substance Use Topics Alcohol use: Yes Comment: One to Two Times Per Month Drug use: No Review of Systems Objective BP 134/64 (BP Site: Left Arm, BP Position: Sitting, BP Cuff Size: Regular Adult) Pulse 70 Resp 12 Ht 163.8 cm (5' 4.5) Wt 63.4 kg (139 lb 12.4 oz) LMP 02/09/2023 (Approximate) SpO2 100% BMI 23.62 kg/m Last 5 Encounter Wt Readings: Date: Wt: 03/11/2024 63.4 kg (139 lb 12.4 oz) 09/28/2023 67.6 kg (149 lb) 06/27/2023 68.1 kg (150 lb 3.2 oz) 03/02/2023 66.2 kg (146 lb) 09/15/2022 67.1 kg (148 lb) No waist measurement recorded Estimated body mass index is 23.62 kg/m as calculated from the following: Height as of this encounter: 163.8 cm (5' 4.5). Weight as of this encounter: 63.4 kg (139 lb 12.4 oz). Last 5 Encounter BP Readings: Date: BP: 03/11/2024 134/64 09/28/2023 134/82 06/27/2023 162/109 03/02/2023 120/78 09/15/2022 126/74 Physical Exam Vitals reviewed. Constitutional: Appearance: Normal appearance. She is well-developed. HENT: Head: Normocephalic and atraumatic. Right Ear: Tympanic membrane, ear canal and external ear normal. Left Ear: Tympanic membrane, ear canal and external ear normal. Nose: Nose normal. Mouth/Throat: Mouth: Mucous membranes are moist. Eyes: Conjunctiva/sclera: Conjunctivae normal. Neck: Thyroid: No thyromegaly. Vascular: No carotid bruit. Cardiovascular: Rate and Rhythm: Normal rate and regular rhythm. Pulses: Normal pulses. Heart sounds: Normal heart sounds. No murmur heard. No friction rub. No gallop. Pulmonary: Effort: Pulmonary effort is normal. Breath sounds: Normal breath sounds. Abdominal: General: Bowel sounds are normal. There is no distension. Palpations: Abdomen is soft. There is no mass. Tenderness: There is no abdominal tenderness. Musculoskeletal: General: No deformity. Normal range of motion. Right lower leg: No edema. Left lower leg: No edema. Lymphadenopathy: Cervical: No cervical adenopathy. Skin: General: Skin is warm and dry. Coloration: Skin is not jaundiced or pale. Findings: No rash. Neurological: General: No focal deficit present. Mental Status: She is alert and oriented to person, place, and time. Cranial Nerves: No cranial nerve deficit. Sensory: No sensory deficit. Motor: No abnormal muscle tone. Coordination: Coordination normal. Deep Tendon Reflexes: Reflexes normal. Psychiatric: Mood and Affect: Mood normal. Behavior: Behavior normal. Thought Content: Thought content normal. Judgment: Judgment normal. Assessment and Plan # Routine medical exam - Physical examination performed; no abnormalities detected. - Patient denies any symptoms of hypothyroidism. - Family history updated to reflect four brothers and one sister. # Migraine without aura and without status migrainosus, not intractable - Frequency increased to 1-2 episodes per month, associated with nausea and cephalalgia. - Potential triggers include stress and dehydration. - Currently managed with [id number] Excedrin. - Prescribed Ondansetron ODT 4 mg, 30 tablets, to be taken every 6 hours as needed for nausea and vomiting. - Advised to maintain adequate hydration to prevent migraines. - Patient instructed to report if migraines become more severe or frequent for consideration of prophylactic treatment. # Allergic rhinitis due to animal hair and dander - Symptoms well-controlled with Flonase. - Refilled Flonase, 3-month supply with 3 refills. Encounter Diagnosis ICD-10-CM 1. Routine medical exam Z00.00 2. Migraine without aura and without status migrainosus, not intractable G43.009 ondansetron orally disintegrating (ZOFRAN ODT) 4 mg disintegrating tablet 3. Allergic rhinitis due to animal hair and dander J30.81 fluticasone (FLONASE) 50 mcg/actuation nasal spray 4. Screening for depression Z13.31 DEPRESSION SCREENING 5. Encounter for screening examination for other mental health and behavioral disorders Z13.39 ANXIETY SCREENING 6. Multinodular goiter E04.2 THYROID STIMULATING HORMONE T4 FREE/FREE THYROXINE T3, FREE Clincially euthyroid. Labs on way out Cheryle Werner MD documented in this encounter [facility] 09-28-2023 History of Present illness Narrative Beverage Host offered: Patient declinesAlessia Vera is a 38 year old who presents for an annual gynecologic exam without complaints. No pain from cyst- does not want surgery- would prefer to continue to monitor. Menses: cycles every 28 days and 4-5 days of flow. Contraception: combined hormonal contraceptives HPV vaccine: No Last Pap: 08/19/2021 normal HPV: 08/14/2021 negative History of abnormal pap: No Last mammogram: never Sexually active: never History of ovarian cyst: Yes, monitoring yearly- 7cm Exercise: routine- weight lifting Diet: balanced OB History T0 L0 SAB0 IAB0 Ectopic0 Multiple0 Live Births0 Web Marketing Assistant History LMP: 02/09/2023 (Approximate), Having periods Age at Menarche: Age at First : Age at Menopause: Web Marketing Assistant History Comments: Sexual Activity: Never; No partner data on record Contraception: Pill PAST MEDICAL HISTORY Diagnosis Date Allergic rhinitis, cause unspecified Chronic lymphocytic thyroiditis Excessive or frequent menstruation WITH IRREGULAR PERIODS Irregular menstrual cycle Syncope and collapse LIFETIME VASO VAGAL SYNDROME PAST SURGICAL HISTORY Procedure Laterality Date NONE FAMILY HISTORY Problem Relation Age of Onset Heart Mother IRREGULAR HEART BEAT/ heart virus Melanoma Father Prostate Cancer Paternal Grandfather other (CONNECTIVE TISSUE DISEASE) Brother Hypertension Brother Cancer Paternal Aunt Rectal with mets SOCIAL HISTORY Social History Tobacco Use Smoking status: Never Smokeless tobacco: Never Vaping Use Vaping Use: Never used Substance Use Topics Alcohol use: Yes Comment: One to Two Times Per Month Drug use: No REVIEW OF SYSTEMS Abdomen: No abdominal pain, nausea, vomiting, diarrhea, or constipation. No bloating, early satiety, indigestion, or increased flatulence. Bladder: No dysuria, gross hematuria, urinary frequency, urinary urgency, or incontinence. Breast: No breast lumps, nipple d/c, overlying skin changes, redness or skin retraction. Allergies and current medication updated:Yes EXAM: Ht 5' 4.5 (1.64m) Wt 149 lb (67.6kg) LMP 02/09/2023 BMI 25.19 kg/(m^2). GENERAL: pleasant, female in no apparent distress HEENT: Normocephalic, atraumatic, mucus membranes moist, and no lesions NECK: Supple, full range of motion, no adenopathy, and thyroid normal DERMATOLOGY: Normal, without lesions, non-icteric, and non-hirsute BREAST: soft, non-tender, symmetric, no dominant mass, normal nipple-areolar complex, no lymphadenopathy, and no nipple discharge ABDOMEN: soft, non-tender, and no masses PELVIC: external genitalia normal, normal Bartholin's glands, urethra, Fernwood's glands, no vulvar lesions, no cervical lesions, good vaginal support, physiologic discharge present, normal appearing perineal body and perianal region BIMANUAL: uterus normal size, shape and consistency, no adnexal masses, non-tender, and ? More fullness on left but no definitive mass palpable. RECTOVAGINAL: deferred. NEURO: alert and oriented x3,exam grossly non-focal EXTREMITIES: normal ASSESSMENT/PLAN: 1) Health maintenance: Pap/HPV up to date. Mammogram starting age 40. Nutrition, exercise and routine health maintenance exams reviewed. Calcium/Vitamin D supplementation information provided. 2) Contraception: combined hormonal contraceptives. Contraceptive options reviewed and information provided. 3) STD screening: Declined STD check. 4) Follow up one year or sooner as needed 5) monitor ovarian cyst yearly- s/sx of torsion reviewed Frances Fraga MD documented in this encounter [facility] 03-11-2023 History of Present illness Narrative Images from the original note were not included. Patient Name: [facility] Location: [facility] [id number] Date Of : Date Of Visit: 1985 03/11/2023 MRN# Provider: [id number] Judi Dawkins CNP Chief Complaint Patient presents with URI For 1 day has sore throat, cough, congestion, chills. Exposure to COVID. Assessment & Plan 1. Acute upper respiratory infection brompheniramine-pseudoePHEDrine- DM 2-30-10 mg/5 mL syrup 2. Exposure to COVID-19 virus COVID-19, Molecular No follow-ups on file. Medical Decision Making Viral URI COVID negative Bromphed Rx'ed for symptomatic relief Recommended rest, fluids, OTC ibu/apap PRN Follow up if new or worsening symptoms Additional Clinical Comments Discussed over the counter medications for symptomatic management and side effects of medications. Recommended taking all medications with food and to stop medications if they develop any signs of an allergic reaction. Educated patient and/or guardian about signs and symptoms that would warrant further immediate evaluation. Recommended that they should return to urgent care, make an appointment with their family physician, or go to the emergency room if symptoms persist or get acutely worse. Recommended follow up within the next week with their PCP or to get established with a PCP soon in order to follow up appropriately. Subjective 37 y.o. female presents with URI (For 1 day has sore throat, cough, congestion, chills. Exposure to COVID.) COVID exposure from multiple coworkers recently. Symptoms started yesterday with cough, sore throat, chills. Wants COVID testing. Review Of Systems Review of Systems Constitutional: Positive for chills. Negative for fever. HENT: Positive for sore throat. Negative for congestion, ear pain and rhinorrhea. Respiratory: Positive for cough. Negative for shortness of breath and wheezing. Cardiovascular: Negative for chest pain. Gastrointestinal: Negative for abdominal pain, diarrhea, nausea and vomiting. Musculoskeletal: Negative for myalgias. Neurological: Positive for headaches (mild). Medical History History reviewed. No pertinent past medical history. History reviewed. No pertinent surgical history. There is no problem list on file for this patient. Social History Social History Tobacco Use Smoking status: Never Smokeless tobacco: Never Vaping Use Vaping Use: Never used Substance Use Topics Alcohol use: Yes Drug use: No Family History History reviewed. No pertinent family history. Objective Physical Exam BP (!) 143/91 Pulse (!) 102 Temp 99.5 F (37.5 C) (Tympanic) Resp 16 Wt 65.8 kg (145 lb) LMP 03/11/2023 SpO2 97% BMI 24.89 kg/m Vision/Hearing Exam:No results found. Physical Exam Vitals reviewed. Constitutional: General: She is awake. She is not in acute distress. Appearance: Normal appearance. She is well-developed and well-groomed. She is not ill-appearing, toxic-appearing or diaphoretic. HENT: Head: Normocephalic and atraumatic. Right Ear: Hearing, tympanic membrane, ear canal and external ear normal. Left Ear: Hearing, tympanic membrane, ear canal and external ear normal. Nose: Nose normal. Mouth/Throat: Lips: [place]. No lesions. Mouth: Mucous membranes are moist. No oral lesions. Pharynx: Oropharynx is clear. Uvula midline. No pharyngeal swelling, oropharyngeal exudate, posterior oropharyngeal erythema or uvula swelling. Tonsils: No tonsillar exudate or tonsillar abscesses. 0 on the right. 0 on the left. Cardiovascular: Rate and Rhythm: Regular rhythm. Tachycardia present. Heart sounds: No murmur heard. No friction rub. No gallop. Pulmonary: Effort: Pulmonary effort is normal. No respiratory distress. Breath sounds: Normal breath sounds and air entry. No stridor, decreased air movement or transmitted upper airway sounds. No decreased breath sounds, wheezing, rhonchi or rales. Musculoskeletal: Cervical back: Neck supple. No rigidity. Skin: General: Skin is warm and dry. Neurological: Mental Status: She is alert and oriented to person, place, and time. Gait: Gait is intact. Psychiatric: Behavior: Behavior is cooperative. Procedure Notes Procedures Results Recent Results (from the past 168 hour(s)) COVID-19, Molecular Collection Time: 03/11/23 8:39 PM Specimen: Nasal; Swab Result Value Ref Range SARS-CoV-2 Not Detected Not Detected No orders to display Orders Placed This Visit Orders Placed This Encounter Procedures COVID-19, Molecular Medication List At End Of Visit Current Outpatient Medications Medication Sig Dispense Refill norgestimate-ethinyl estradioL (ORTHO TRI-CYCLEN,TRINESSA) 0.18/0.215/0.25 mg-35 mcg (28) per tablet Take 1 (one) tablet by mouth daily with dinner . brompheniramine-pseudoePHEDrine- DM 2-30-10 mg/5 mL syrup Take 5 mL by mouth every 6 (six) hours as needed (for cough) . 100 mL 0 No current facility-administered medications for this visit. There are no Patient Instructions on file for this visit. documented in this encounter [facility] 09-15-2022 History of Present illness Narrative Sruthi is a 37 year old who presents for an annual gynecologic exam without complaints. No pain from Right ovarian cyst- stable in size. Menses: cycles every 28 days and 4-5 days of flow. Contraception: combined hormonal contraceptives HPV vaccine: No Last Pap: 08/19/2021 normal HPV: 08/14/2021 negative History of abnormal pap: No Last mammogram: never Sexually active: No History of STDS: None Patient concerns for STD exposure: No. Exercise: active on farm, basketball and running Diet: balanced OB History T0 L0 SAB0 IAB0 Ectopic0 Multiple0 Live Births0 Web Marketing Assistant History LMP: 08/26/2022, Having periods Age at Menarche: Age at First : Age at Menopause: Web Marketing Assistant History Comments: Sexual Activity: Never; No partner data on record Contraception: Pill PAST MEDICAL HISTORY Diagnosis Date Allergic rhinitis, cause unspecified Chronic lymphocytic thyroiditis Excessive or frequent menstruation WITH IRREGULAR PERIODS Irregular menstrual cycle Syncope and collapse LIFETIME VASO VAGAL SYNDROME PAST SURGICAL HISTORY Procedure Laterality Date NONE FAMILY HISTORY Problem Relation Age of Onset Heart Mother IRREGULAR HEART BEAT/ heart virus Melanoma Father Prostate Cancer Paternal Grandfather other (CONNECTIVE TISSUE DISEASE) Brother Hypertension Brother Cancer Paternal Aunt Rectal with mets SOCIAL HISTORY Social History Tobacco Use Smoking status: Never Smokeless tobacco: Never Vaping Use Vaping Use: Never used Substance Use Topics Alcohol use: Yes Comment: One to Two Times Per Month Drug use: No REVIEW OF SYSTEMS Abdomen: No abdominal pain, nausea, vomiting, diarrhea, or constipation. No bloating, early satiety, indigestion, or increased flatulence. Bladder: No dysuria, gross hematuria, urinary frequency, urinary urgency, or incontinence. Breast: No breast lumps, nipple d/c, overlying skin changes, redness or skin retraction. Allergies and current medication updated:Yes EXAM: BP 126/74 Ht 5' 4.5 (1.64m) Wt 148 lb (67.1kg) LMP 08/26/2022 BMI 25.02 kg/(m^2). GENERAL: pleasant, female in no apparent distress HEENT: Normocephalic, atraumatic, mucus membranes moist, and no lesions NECK: Supple, full range of motion, no adenopathy, and thyroid normal DERMATOLOGY: Normal, without lesions, non-icteric, and non-hirsute BREAST: soft, non-tender, symmetric, no dominant mass, normal nipple-areolar complex, no lymphadenopathy, and no nipple discharge ABDOMEN: soft, non-tender, and no masses PELVIC: external genitalia normal, normal Bartholin's glands, urethra, Fernwood's glands, no vulvar lesions, no cervical lesions, good vaginal support, physiologic discharge present, normal appearing perineal body and perianal region BIMANUAL: uterus normal size, shape and consistency, no adnexal masses, and non-tender- CYST not palpable RECTOVAGINAL: deferred. NEURO: alert and oriented x3,exam grossly non-focal EXTREMITIES: normal ASSESSMENT/PLAN: 1) Health maintenance: Pap/HPV up to date. Mammogram starting age 40. Nutrition, exercise and routine health maintenance exams reviewed. Calcium/Vitamin D supplementation information provided. 2) Contraception: combined hormonal contraceptives. Contraceptive options reviewed and information provided. 3) STD screening: Declined STD check. 4) Follow up one year or sooner as needed 5) yearly ultrasound for cyst - s/sx of torsion reviewed. Declines surgical intervention Frances Fraga MD Beverage Host offered: Patient declines. documented in this encounter [facility] 08-26-2022 Miscellaneous Notes Pt returned call and was given below results and instructions. Pt voiced understanding and had no further questions. Khadra Avelar LPN Left message to call office. Sharon Burgos RN ----- Message from Frances Trevizo MD sent at 08/24/2022 8:04 AM EST ----- Notify patient that her cyst is stable in size. Can continue to watch yearly unless she has pain or decides she wants surgical mgmt to remove it. Will order ultrasound so she can do at her next annual. documented in this encounter [facility] 07-15-2022 Miscellaneous Notes Patient request for medication is as follows: Requested Prescriptions Pending Prescriptions Disp Refills TRI-SPRINTEC 0.18/0.215/0.25 mg-35 mcg (28) 28 tablet 2 Sig: Take 1 tablet by mouth once daily. Next annual exam: 09/15/22 Please approve the above prescription(s) to electronically send to pharmacy. Asia Valdes RN documented in this encounter [facility] 02-21-2022 History of Present illness Narrative This note was created using [email or web address]. Subjective Sruthi Flowers is a 36 year old female. HISTORY Sruthi Flowers is a 36 year old lady here for yearly exam and follow up appointment. Dr. Velásquez told her to keep an eye on thyroid. No problems noted. Angelica's diagnosed. 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 US last year. Flonase effective for allergies to mask has to wear at work. Got screened at work for stick and hep C, etc all ruled out. PAST MEDICAL HISTORY Diagnosis Date Allergic rhinitis, cause unspecified Chronic lymphocytic thyroiditis Excessive or frequent menstruation WITH IRREGULAR PERIODS Irregular menstrual cycle Syncope and collapse LIFETIME VASO VAGAL SYNDROME Current Outpatient Medications Medication Sig fluticasone (FLONASE) 50 mcg/actuation nasal spray Use 1-2 Sprays in each nostril once daily. TRI-SPRINTEC 0.18/0.215/0.25 mg-35 mcg (28) Take 1 tablet by mouth once daily. olopatadine (PATANOL) 0.1 % ophthalmic solution Use 1-2 Drops in both eyes twice daily as needed. Qmimqhj-Imdgbimxitnqj-Eptysxnw (EXCEDRIN MIGRAINE) 250-250-65 mg per tablet Take 1 tablet by mouth every 6 hours as needed. (does not need often) fexofenadine (MIGUEL) 180 mg tablet Take 1 tablet by mouth once daily. During allergy season Cholecalciferol, Vitamin D3, 1,000 unit cap Take 1 capsule by mouth once daily. VITAMIN C 1,000 MG TAB Take one(1) tablet daily. MULTIVITAMIN TAB Take one(1) tablet daily. No current facility-administered medications for this visit. ALLERGIES Allergen Reactions Environmental Aller* Dogs, Trees Horses [Other] Hives FAMILY HISTORY Problem Relation Age of Onset Heart Mother IRREGULAR HEART BEAT/ heart virus Melanoma Father Prostate Cancer Paternal Grandfather other (CONNECTIVE TISSUE DISEASE) Brother Hypertension Brother Cancer Paternal Aunt Rectal with mets Social History Tobacco Use Smoking status: Never Smokeless tobacco: Never Vaping Use Vaping Use: Never used Substance Use Topics Alcohol use: Yes Comment: One to Two Times Per Month Drug use: No Review of Systems Objective BP 128/82 Pulse (!) 57 Ht 165.1 cm (5' 5) Wt 60.3 kg (133 lb) LMP 07/31/2021 SpO2 99% BMI 22.13 kg/m Last 5 Encounter Wt Readings: Date: Wt: 02/21/2022 60.3 kg (133 lb) 12/27/2021 65.8 kg (145 lb) 08/12/2021 66.7 kg (147 lb) 12/06/2020 67.1 kg (148 lb) 08/10/2020 63.5 kg (140 lb) No waist measurement recorded Estimated body mass index is 22.13 kg/m as calculated from the following: Height as of this encounter: 165.1 cm (5' 5). Weight as of this encounter: 60.3 kg (133 lb). Last 5 Encounter BP Readings: Date: BP: 02/21/2022 128/82 12/27/2021 122/64 08/12/2021 122/72 12/06/2020 141/84 08/10/2020 138/86 Physical Exam Vitals reviewed. Constitutional: Appearance: She is well-developed. HENT: Head: Normocephalic and atraumatic. Right Ear: External ear normal. Left Ear: External ear normal. Nose: Nose normal. Eyes: Conjunctiva/sclera: Conjunctivae normal. Neck: Thyroid: No thyromegaly. Comments: Barely palpable thyroid gland; no nodules Cardiovascular: Rate and Rhythm: Normal rate and regular rhythm. Pulses: Normal pulses. Heart sounds: Normal heart sounds. No murmur heard. No friction rub. No gallop. Pulmonary: Effort: Pulmonary effort is normal. Breath sounds: Normal breath sounds. Abdominal: General: Bowel sounds are normal. There is no distension. Palpations: Abdomen is soft. There is no mass. Tenderness: There is no abdominal tenderness. Musculoskeletal: General: No deformity. Normal range of motion. Lymphadenopathy: Cervical: No cervical adenopathy. Skin: General: Skin is warm and dry. Coloration: Skin is not jaundiced or pale. Findings: No rash. Neurological: General: No focal deficit present. Mental Status: She is alert and oriented to person, place, and time. Cranial Nerves: No cranial nerve deficit. Sensory: No sensory deficit. Motor: No abnormal muscle tone. Coordination: Coordination normal. Deep Tendon Reflexes: Reflexes normal. Psychiatric: Attention and Perception: Attention and perception normal. Mood and Affect: Mood and affect normal. Speech: Speech normal. Behavior: Behavior normal. Thought Content: Thought content normal. Cognition and Memory: Cognition and memory normal. Judgment: Judgment normal. Assessment and Plan ASSESSMENT/PLAN: 1. Routine medical exam - ICD9: V70.0, ICD10: Z00.00 (primary diagnosis) - Counseled on healthy diet and regular exercise - Calcium intake with supplements or by diet of 1000 mg/day for under 50, 7856-5766 mg/day for 50+ - Follow up for annual exam in one year 2. Chronic lymphocytic thyroiditis - ICD9: 245.2, ICD10: E06.3 Stable clinically - TSH BLD - T4 FREE/FREE THYROX - T3 FREE BLD 3. Allergic rhinitis due to animal hair and dander - ICD9: 477.2, ICD10: J30.81 Flonase effective for this and mask allergy 4. Multinodular goiter - ICD9: 241.1, ICD10: E04.2 Has been stable. Updating labs as above Cheryle Werner MD documented in this encounter [facility] 12-27-2021 Instructions Ghada Aguero APRN.METALWORKING SPECIALIST - 12/27/2021 9:27 AM EDT -Increase fluid intake. --Rest as much as possible. - Nasal saline spray, uriah pot - Flonase 2 sprays in each nostril once a day for 30 days - Zyrtec 10 mg By mouth daily at bedtime for 30 days - Augmentin as ordered. Take the entire course of antibiotics as prescribed. DO NOT stop taking it early, even if you are feeling better. -Monitor for signs of worsening infection: increased temperature, pain in face, ear pain or headaches or increase in nasal congestion/mucous that is not improving. -Educated patient on side effects of medication. Probiotic: Floralindan, Estela, Align. Do not take with antibiotic, make sure 2 hours between. documented in this encounter [facility] 12-27-2021 History of Present illness Narrative Subjective The history is provided by the patient. No certified court/medical interpreter was used. HPI Sruthi Flowers is a 36 year old female who presents today for CC of sinus pressure and congestion for 2 weeks. She is also having some headaches, some thick yellow nasal drainage. She has used OTC sudafed with short term relief, along with mucinex. She is having left ear pain. H/o seasonal allergies, sinusitis. BP 122/64 Pulse 75 Temp 36.8 C (98.2 F) Resp 21 Wt 65.8 kg (145 lb) LMP 07/31/2021 SpO2 99% BMI 24.13 kg/m Social History Tobacco Use Smoking status: Never Smoker Smokeless tobacco: Never Used Vaping Use Vaping Use: Never used Substance Use Topics Alcohol use: Yes Comment: One to Two Times Per Month Drug use: No PAST MEDICAL HISTORY Diagnosis Date Allergic rhinitis, cause unspecified Chronic lymphocytic thyroiditis Excessive or frequent menstruation WITH IRREGULAR PERIODS Irregular menstrual cycle Syncope and collapse LIFETIME VASO VAGAL SYNDROME I have confirmed and edited as necessary, the [facility] Review of Systems Constitutional: Negative for chills, fever and malaise/fatigue. HENT: Positive for congestion and sinus pain. Negative for ear pain and sore throat. Post nasal drainage Respiratory: Positive for cough (from drainage). Negative for sputum production, shortness of breath and wheezing. Cardiovascular: Negative for chest pain. Gastrointestinal: Negative for abdominal pain, diarrhea, nausea and vomiting. Musculoskeletal: Negative for myalgias. Neurological: Positive for headaches (sinus). Objective Physical Exam Vitals and nursing note reviewed. HENT: Head: Normocephalic and atraumatic. Right Ear: Tympanic membrane, ear canal and external ear normal. Left Ear: Ear canal and external ear normal. A middle ear effusion (serous) is present. Tympanic membrane is bulging. Nose: Mucosal edema, congestion and rhinorrhea present. Right Sinus: Maxillary sinus tenderness and frontal sinus tenderness present. Left Sinus: Maxillary sinus tenderness and frontal sinus tenderness present. Mouth/Throat: Pharynx: Uvula midline. Cardiovascular: Rate and Rhythm: Normal rate and regular rhythm. Heart sounds: Normal heart sounds. Pulmonary: Effort: Pulmonary effort is normal. Breath sounds: Normal breath sounds. Lymphadenopathy: Head: Right side of head: No submental, submandibular or tonsillar adenopathy. Left side of head: No submental, submandibular or tonsillar adenopathy. Cervical: No cervical adenopathy. Skin: General: Skin is warm and dry. Neurological: Mental Status: She is alert. Psychiatric: Mood and Affect: Affect normal. ASSESSMENT/PLAN: 1. Acute non-recurrent pansinusitis - ICD9: 461.8, ICD10: J01.40 - Will begin treatment with Augmentin 875 mg PO BID for 5 days - Supportive care with plenty of fluids, rest, and analgesia prn. - Follow up in one week if symptoms persist or worsen. Diagnosis and treatment plan were discussed and questions were answered to the patient's satisfaction. Pt acknowledged understanding of concepts and follow up plan. Specific signs and symptoms that would indicate the need for higher level of care were discussed in detail warranting prompt ER evaluation. Ghada Aguero APRN.CNP documented in this encounter [facility] History of Past i llness Narrative Problem Noted Date Resolved Date Other and unspecified chronic thyroiditis 200503/15/2016 documented as of this encounter (statuses as of 12/27/2021) [address]20-2006 History of Past illness Narrative* Problem Noted Date Resolved Date Other and unspecified chronic thyroiditis 200503/15/2016 documented as of this encounter (statuses as of 03/31/2022) [facility] History of Past illness Narrative* Problem Noted Date Resolved Date Other and unspecified chronic thyroiditis 200503/15/2016 documented as of this encounter (statuses as of 07/17/2022) [facility] History of Past illness Narrative* Problem Noted Date Resolved Date Other and unspecified chronic thyroiditis 200503/15/2016 documented as of this encounter (statuses as of 08/15/2022) [facility] History of Past illness Narrative* Problem Noted Date Resolved Date Other and unspecified chronic thyroiditis 200503/15/2016 documented as of this encounter (statuses as of 08/24/2022) [facility] History of Past illness Narrative* Problem Noted Date Resolved Date Other and unspecified chronic thyroiditis 200503/15/2016 documented as of this encounter (statuses as of 08/26/2022) [address] History of Past illness Narrative* Problem Noted Date Resolved Date Other and unspecified chronic thyroiditis 200503/15/2016 documented as of this encounter (statuses as of 09/15/2022) [address] History of Past illness Narrative* Problem Noted Date Diagnosed Date Resolved Date Other and unspecified chronic thyroiditis 01/29/2006 03/15/2016 documented as of this encounter (statuses as of 09/28/2023) [facility] Acute non-recurrent pansinusitis- Primary [facility] Diagnosis Routine medical exam- Primary Routine general medical examination at a health care facility Chronic lymphocytic thyroiditis Allergic rhinitis due to animal hair and dander Allergic rhinitis due to animal (cat) (dog) hair and dander Multinodular goiter Nontoxic multinodular goiter [facility] Diagnosis Cyst of ovary, unspecified laterality- Primary [facility] Diagnosis Cyst of ovary, unspecified laterality- Primary [facility] Diagnosis Encounter for gynecological examination (general) (routine) without abnormal findings- Primary Ovarian cyst, right Other and unspecified ovarian cyst [facility] Diagnosis Acute upper respiratory infection- Primary Acute upper respiratory infections of unspecified site Exposure to COVID-19 virus documented in this encounter [facility] note* Diagnosis Encounter for gynecological examination (general) (routine) without abnormal findings- Primary Ovarian cyst, right Other and unspecified ovarian cyst [facility] Diagnosis Routine medical exam- Primary Routine general medical examination at a regional medical center care facility Migraine without aura and without status migrainosus, not intractable Migraine without aura, without mention of intractable migraine without mention of status migrainosus Allergic rhinitis due to animal hair and dander Allergic rhinitis due to animal (cat) (dog) hair and dander Screening for depression Encounter for screening examination for other mental health and behavioral disorders Multinodular goiter Nontoxic multinodular goiter [facility] Diagnosis Cervical lymphadenopathy- Primary Enlargement of lymph nodes Inguinal adenopathy Enlargement of lymph nodes [facility] Diagnosis Acute recurrent sinusitis, unspecified location- Primary [facility] Diagnosis Ovarian cyst, right Other and unspecified ovarian cyst [facility] Diagnosis Ovarian cyst, right- Primary Other and unspecified ovarian cyst Ovarian cyst, right Other and unspecified ovarian cyst [facility] Diagnosis Pre-operative examination- Primary Preoperative examination, unspecified Migraine without aura and without status migrainosus, not intractable Migraine without aura, without mention of intractable migraine without mention of status migrainosus Chronic lymphocytic thyroiditis Multinodular goiter Nontoxic multinodular goiter Ovarian cyst, right Other and unspecified ovarian cyst * Assessment & Plan Note - Eddie Wolf APRN.CNP - 09/23/2024 8:38 AM EDT Associated Problem(s): Multinodular goiter Assessment: denies compressive symptoms * Assessment & Plan Note - Eddie Wolf APRN.CNP - 09/23/2024 8:37 AM EDT Associated Problem(s): Chronic lymphocytic thyroiditis Assessment: under surveillance TSH Date Value Ref Range Status 03/11/2024 1.640 0.270 - 4.200 mIU/L Final Comment: If the patient is , TSH reference range varies by gestational period: First Trimester (weeks 9-12): 0.180-2.990 mIU/L Second Trimester: 0.110-3.980 mIU/L Third Trimester: 0.480-4.710 mIU/L Dale Vicente et al. A Practical Approach for the Verifications and Determination of Site- and Trimester-Specific Reference Intervals for Thyroid Function tests in . Thyroid, 2019:29:3:412-420.Edgar Whalen, et al. 2017 Guidelines of the [place] [employer] for the Diagnosis and Management of Thyroid Disease during and the . Thyroid, 2017:27:3:315-389. * Assessment & Plan Note - Eddie Wolf APRN.CNP - 09/23/2024 8:37 AM EDT Associated Problem(s): Migraine without aura and without status migrainosus, not intractable Assessment: otc analgesics as needed [facility] Diagnosis Pre-operative examination- Primary Preoperative examination, unspecified Migraine without aura and without status migrainosus, not intractable Migraine without aura, without mention of intractable migraine without mention of status migrainosus Chronic lymphocytic thyroiditis Multinodular goiter Nontoxic multinodular goiter Ovarian cyst, right- Primary Other and unspecified ovarian cyst Cyst of ovary, unspecified laterality Sterilization consult Other general counseling and advice for contraceptive management Preoperative examination Preoperative examination, unspecified Ovarian cyst, right Other and unspecified ovarian cyst documented in this encounter [facility] note* Diagnosis Pre-operative examination- Primary Preoperative examination, unspecified Migraine without aura and without status migrainosus, not intractable Migraine without aura, without mention of intractable migraine without mention of status migrainosus Chronic lymphocytic thyroiditis Multinodular goiter Nontoxic multinodular goiter OPENED IN ERROR- Primary To allow closing an encounter opened in error (used in SmartSet) [facility] Diagnosis Pre-operative examination- Primary Preoperative examination, unspecified Migraine without aura and without status migrainosus, not intractable Migraine without aura, without mention of intractable migraine without mention of status migrainosus Chronic lymphocytic thyroiditis Multinodular goiter Nontoxic multinodular goiter Episode of heavy vaginal bleeding- Primary [facility]* Diagnosis Ovarian cyst, right- Primary Other and unspecified ovarian cyst Pre-operative examination- Primary Preoperative examination, unspecified Migraine without aura and without status migrainosus, not intractable Migraine without aura, without mention of intractable migraine without mention of status migrainosus Chronic lymphocytic thyroiditis Multinodular goiter Nontoxic multinodular goiter [facility] Attachments The following attachments cannot be sent through Care Everywhere. * URI (Upper Respiratory Infection) (Wallisian) documented in this encounterOhioHealthReason for referral (narrative)* Diagnostic Procedure Only (Routine) - Pending Review Specialty Diagnoses / Procedures Referred By Michelle t Referred To Contact [facility] Diagnoses Cyst of ovary, unspecified laterality Procedures PELVIC US WHI US PELVIC NONOBSTETRIC REAL-TIME IMAGE COMPLETE Frances Mojica MD [address] [place] [address] [facility] [address] [place] [address] Referral ID Status Reason Start Date Expiration Date Visits Requested Visits Authorized [id number] Pending Review Auto-Generat ed Referral 08/24/2022 08/24/2023 1 1 [facility] for referral (narrative)* Diagnostic Procedure Only (Routine) - Pending Review Specialty Diagnoses / Procedures Referred By Contac t Referred To Contact [facility] Diagnoses Ovarian cyst, right Procedures PELVIC US WHI US PELVIC NONOBSTETRIC REAL-TIME IMAGE COMPLETE Frances Mojica MD [address] [place] [address] [facility] [address] [place] [address] Referral ID Status Reason Start Date Expiration Date Visits Requested Visits Authorized [id number] Pending Review Auto-Generat ed Referral 09/28/2023 09/27/2024 1 1 [facility] for visit Narrative* Diagnostic Procedure Only (Routine) - Closed Specialty Diagnoses / Procedures Referred By Contac t Referred To Contact [facility] Diagnoses Ovarian cyst, right Procedures PELVIC US WHI US PELVIC NONOBSTETRIC REAL-TIME IMAGE COMPLETE Frances Mojica MD [address] [place] [address] [facility] [address] [place] [address] Referral ID Status Reason Start Date Expiration Date V isits Requested Visits Authorized [id number] Closed Auto-Generate d Referral 08/03/2024 07/12/2025 1 1 [facility] Instructions * Patient Instructions - Merle Rivas CNP - 02/19/2018 6:33 PM EDT Formatting of this note may be different from the original. Take medication as discussed. Follow up with PCP or UC if symptoms worsen of fail to improve in 48-72 hours. Increase rest and fluids. Use Rohit's Vaporub at night Use Flonase and a cool mist humidifier as discussed.. Sinusitis: Care Instructions Your Care Instructions Sinusitis is an infection of the lining of the sinus cavities in your head. Sinusitis often followsa cold. It causes pain and pressure in your head and face. In most cases, sinusitis gets better on its own in 1 to 2 weeks. But some mild symptoms may last for several weeks. Sometimes antibiotics are needed. Follow-up care is a collado part of your treatment and safety. Be sure to make and go to all appointments, and call your doctor if you are having problems. It's also a good idea to know your test resultsand keep a list of the medicines you take. How can you care for yourself at home? Take an ftqm-vpj-yiyaslg pain medicine, such as acetaminophen (Tylenol), ibuprofen (Advil, Motrin),or naproxen (Aleve). Read and follow all instructions on the label. If the doctor prescribed antibiotics, take them as directed. Do not stop taking them just because you feel better. You need to take the full course of antibiotics. Be careful when taking tehw-rut-clyxkue cold or flu medicines and Tylenol at the same time. Many ofthese medicines have acetaminophen, which is Tylenol. Read the labels to make sure that you are nottaking more than the recommended dose. Too much acetaminophen (Tylenol) can be harmful. Breathe warm, moist air from a steamy shower, a hot bath, or a sink filled with hot water. Avoid cold, dry air. Using a humidifier in your home may help. Follow the directions for cleaning the machine. Use saline (saltwater) nasal washes to help keep your nasal passages open and wash out mucus and bacteria. You can buy saline nose drops at a grocery store or drugstore. Or you can make your own at home by adding 1 teaspoon of salt and 1 teaspoon of baking soda to 2 cups of distilled water. If you make your own, fill a bulb syringe with the solution, insert the tip into your nostril, and squeeze gently. Blow your nose. Put a hot, wet towel or a warm gel pack on your face 3 or 4 times a day for 5 to 10 minutes each time. Try a decongestant nasal spray like oxymetazoline (Afrin). Do not use it for more than 3 days in a row. Using it for more than 3 days can make your congestion worse. When should you call for help? Call your doctor now or seek immediate medical care if: ? You have new or worse swelling or redness in your face or around your eyes. ? You have a new or higher fever. ?Watch closely for changes in your health, and be sure to contact your doctor if: ? You have new or worse facial pain. ? The mucus from your nose becomes thicker (like pus) or has new blood in it. ? You are not getting better as expected. Where can you learn more? Log into your personal health record on [email or web address] and enter I933 in the Education box to learn more about Sinusitis: Care Instructions. Current as of: November 21, 2016 Content Version: .[id number] [employer]. Care instructions adapted under license by your healthcare professional. If you have questions about a medical condition or this instruction, always ask your healthcare professional. [employer] disclaims any warranty or liability for your use of this information. in this encounter Assessments Diagnosis Dysfunction of both eustachi an tubes - Primary Acute non-recurrent sinusiti s, unspecified location Summary Purpose Family History No Family History Records FoundNo Family History Records FoundNo Family History Records FoundNo Family History Records Found Advance Directives No Advanced Directives Records FoundNo Advanced Directives Records FoundNo Advanced Directives Records FoundNo Advanced Directives Records Found Additional Source Comments INFORMATION SOURCE (unrecogn ized section and content) DATE CREATED AUTHOR 03/08/2020 [facility] DATE CREATED AUTHOR AUTHOR'S ORGANIZ ATION 03/13/2023 [facility] DATE CREATED AUTHOR AUTHOR'S ORGANIZ ATION 10/08/2024 [facility] DATE CREATED AUTHOR AUTHOR'S ORGANIZ ATION 10/11/2024 [facility] Source Comments (unrecognize d section and content) In the event this informatio n is protected by the Federal Confidentiality of Alcohol and Drug Abuse Patient Records regulations: The Federal rules restrict any use of the information to criminally investigate or prosecute any alcohol or drug abuse patient.[facility] Center[facility] the event this information is protected by the Federal Confidentiality of Alcohol and Drug Abuse Patient Records regulations: The Federal rules restrict any use of the information to criminally investigate or prosecute any alcohol or drug abuse patient.[facility] CenterIn the event this information is protected by the Federal Confidentiality of Alcohol and Drug Abuse Patient Records regulations: The Federal rules restrict any use of the information to criminally investigate or prosecute any alcohol or drug abuse patient.[facility] CenterIn the event this information is protected by the Federal Confidentiality of Alcohol and Drug Abuse Patient Records regulations: The Federal rules restrict any use of the information to criminally investigate or prosecute any alcohol or drug abuse patient.[facility] CenterIn the event this information is protected by the Federal Confidentiality of Alcohol and Drug Abuse Patient Records regulations: The Federal rules restrict any use of the information to criminally investigate or prosecute any alcohol or drug abuse patient.[facility] CenterIn the event this information is protected by the Federal Confidentiality of Alcohol and Drug Abuse Patient Records regulations: The Federal rules restrict any use of the information to criminally investigate or prosecute any alcohol or drug abuse patient.[facility] CenterIn the event this information is protected by the Federal Confidentiality of Alcohol and Drug Abuse Patient Records regulations: The Federal rules restrict any use of the information to criminally investigate or prosecute any alcohol or drug abuse patient.[facility] CenterIn the event this information is protected by the Federal Confidentiality of Alcohol and Drug Abuse Patient Records regulations: The Federal rules restrict any use of the information to criminally investigate or prosecute any alcohol or drug abuse patient.[facility] CenterIn the event this information is protected by the Federal Confidentiality of Alcohol and Drug Abuse Patient Records regulations: The Federal rules restrict any use of the information to criminally investigate or prosecute any alcohol or drug abuse patient.[facility] CenterIn the event this information is protected by the Federal Confidentiality of Alcohol and Drug Abuse Patient Records regulations: The Federal rules restrict any use of the information to criminally investigate or prosecute any alcohol or drug abuse patient.[facility] CenterIn the event this information is protected by the Federal Confidentiality of Alcohol and Drug Abuse Patient Records regulations: The Federal rules restrict any use of the information to criminally investigate or prosecute any alcohol or drug abuse patient.[facility] CenterIn the event this information is protected by the Federal Confidentiality of Alcohol and Drug Abuse Patient Records regulations: The Federal rules restrict any use of the information to criminally investigate or prosecute any alcohol or drug abuse patient.[facility] CenterIn the event this information is protected by the Federal Confidentiality of Alcohol and Drug Abuse Patient Records regulations: The Federal rules restrict any use of the information to criminally investigate or prosecute any alcohol or drug abuse patient.[facility] CenterIn the event this information is protected by the Federal Confidentiality of Alcohol and Drug Abuse Patient Records regulations: The Federal rules restrict any use of the information to criminally investigate or prosecute any alcohol or drug abuse patient.[facility] CenterIn the event this information is protected by the Federal Confidentiality of Alcohol and Drug Abuse Patient Records regulations: The Federal rules restrict any use of the information to criminally investigate or prosecute any alcohol or drug abuse patient.[facility] CenterIn the event this information is protected by the Federal Confidentiality of Alcohol and Drug Abuse Patient Records regulations: The Federal rules restrict any use of the information to criminally investigate or prosecute any alcohol or drug abuse patient.[facility] CenterIn the event this information is protected by the Federal Confidentiality of Alcohol and Drug Abuse Patient Records regulations: The Federal rules restrict any use of the information to criminally investigate or prosecute any alcohol or drug abuse patient.[facility] CenterIn the event this information is protected by the Federal Confidentiality of Alcohol and Drug Abuse Patient Records regulations: The Federal rules restrict any use of the information to criminally investigate or prosecute any alcohol or drug abuse patient.[facility] CenterIn the event this information is protected by the Federal Confidentiality of Alcohol and Drug Abuse Patient Records regulations: The Federal rules restrict any use of the information to criminally investigate or prosecute any alcohol or drug abuse patient.[facility] CenterIn the event this information is protected by the Federal Confidentiality of Alcohol and Drug Abuse Patient Records regulations: The Federal rules restrict any use of the information to criminally investigate or prosecute any alcohol or drug abuse patient.[facility] CenterIn the event this information is protected by the Federal Confidentiality of Alcohol and Drug Abuse Patient Records regulations: The Federal rules restrict any use of the information to criminally investigate or prosecute any alcohol or drug abuse patient.[facility] CenterIn the event this information is protected by the Federal Confidentiality of Alcohol and Drug Abuse Patient Records regulations: The Federal rules restrict any use of the information to criminally investigate or prosecute any alcohol or drug abuse patient.[facility] CenterIn the event this information is protected by the Federal Confidentiality of Alcohol and Drug Abuse Patient Records regulations: The Federal rules restrict any use of the information to criminally investigate or prosecute any alcohol or drug abuse patient.[facility] CenterIn the event this information is protected by the Federal Confidentiality of Alcohol and Drug Abuse Patient Records regulations: The Federal rules restrict any use of the information to criminally investigate or prosecute any alcohol or drug abuse patient.[facility] CenterIn the event this information is protected by the Federal Confidentiality of Alcohol and Drug Abuse Patient Records regulations: The Federal rules restrict any use of the information to criminally investigate or prosecute any alcohol or drug abuse patient.[facility] CenterIn the event this information is protected by the Federal Confidentiality of Alcohol and Drug Abuse Patient Records regulations: The Federal rules restrict any use of the information to criminally investigate or prosecute any alcohol or drug abuse patient.[facility] CenterIn the event this information is protected by the Federal Confidentiality of Alcohol and Drug Abuse Patient Records regulations: The Federal rules restrict any use of the information to criminally investigate or prosecute any alcohol or drug abuse patient.[facility] CenterIn the event this information is protected by the Federal Confidentiality of Alcohol and Drug Abuse Patient Records regulations: The Federal rules restrict any use of the information to criminally investigate or prosecute any alcohol or drug abuse patient.[facility] Reason for Visit (unrecogniz ed section and content) Reason Comments Nasal Congestion cough, sore throat, FLORES, sinus, left ear pain x 2 weeks Reason Comments Yearly Exam Reason Onset Date Comments Refill Request 07/14/2022 Reason Comments Ovarian Cyst Reason Comments Results Reason Comments URI For 1 day has sore t hroat, cough, congestion, chills. Exposure to COVID. Reason Comments Yearly Exam Reason Comments Yearly Exam med refill on nasal spray Reason Comments Swollen Lymph Nodes Reason Comments Mass LT neck and RT groin x 3 weeks Reason Comments Pain, Sinus Pressure and pain in head and ears, low grade fevers, headache x 1 month Reason Comments Preparations For Surgery Reason Comments Refill Request Reason Onset Date Comments Refill Request 09/14/2024 Reason Comments Consult Reason Comments Results Post Op Care Teams (unrecognized sec tion and content) Component Prep Operator Relationship Specialty Start Date End Date Cheryle Werner MD [address] [place] [address] PCP - General Internal Medicine 02/13/17 Component Prep Operator Relationship Specialty Start Date End Date Cheryle Werner MD [address] [place] [address] PCP - General Internal Medicine 02/13/17 Component Prep Operator Relationship Specialty Start Date End Date Cheryle Werner MD [address] [place] [address] PCP - General Internal Medicine 02/13/17 Component Prep Operator Relationship Specialty Start Date End Date Cheryle Werner MD [address] [place] [address] PCP - General Internal Medicine 02/13/17 Component Prep Operator Relationship Specialty Start Date End Date Cheryle Werner MD [address] [place] [address] PCP - General Internal Medicine 02/13/17 Component Prep Operator Relationship Specialty Start Date End Date Cheryle Werner MD [address] [place], [place] [address] PCP - General Internal Medicine 02/19/18 Component Prep Operator Relationship Specialty Start Date End Date Cheryle Werner MD [address] [place] [address] PCP - General Internal Medicine 02/13/17 Component Prep Operator Relationship Specialty Start Date End Date Cheryle Werner MD [address] [place] [address] PCP - General Internal Medicine 02/13/17 Component Prep Operator Relationship Specialty Start Date End Date Cheryle Werner MD [address] [place] [address] PCP - General Internal Medicine 02/13/17 Elena Fairchild, BLOCKER HAND.SHOE RECONDITIONER [address] [place] [address] Stripe Marker Internal Medicine 06/20/24 Mony Virk BLOCKER HAND.METALWORKING SPECIALIST [address] [place], [place] [address] Stripe Marker Internal Medicine 06/20/24 Component Prep Operator Relationship Specialty Start Date End Date Cheryle Werner MD [address] [place] [address] PCP - General Internal Medicine 02/13/17 Elena Fairchild, BLOCKER HAND.SHOE RECONDITIONER [address] [place] [address] Stripe Marker Internal Medicine 06/20/24 Mony Virk BLOCKER HAND.METALWORKING SPECIALIST [address] [place] [address] Stripe Marker Internal Medicine 06/20/24 Component Prep Operator Relationship Specialty Start Date End Date Cheryle Werner MD [address] [place] [address] PCP - General Internal Medicine 02/13/17 Elena Fairchild, BLOCKER HAND.SHOE RECONDITIONER [address] [place] [address] Stripe Marker Internal Medicine 06/20/24 Mony Virk BLOCKER HAND.METALWORKING SPECIALIST [address] [place] [address] Stripe Marker Internal Medicine 06/20/24 Component Prep Operator Relationship Specialty Start Date End Date Cheryle Werner MD [address] [place] [address] PCP - General Internal Medicine 02/13/17 Elena Fairchild, BLOCKER HAND.SHOE RECONDITIONER [address] [place] [address] Stripe Marker Internal Medicine 06/20/24 Mony Virk BLOCKER HAND.METALWORKING SPECIALIST [address] [place] [address] [facility] Internal Medicine 06/20/24 Component Prep Operator Relationship Specialty Start Date End Date Cheryle Wenrer MD [address] [place] [address] PCP - General Internal Medicine 02/13/17 Elena Fairchild, BLOCKER HAND.SHOE RECONDITIONER [address] [place] [address] Stripe Marker Internal Medicine 06/20/24 Mony Virk APRN.METALWORKING SPECIALIST [address] [place] [address] Stripe Marker Internal Medicine 06/20/24 Component Prep Operator Relationship Specialty Start Date End Date Cheryle Werner MD [address] [place] [address] PCP - General Internal Medicine 02/13/17 Elena Fairchild, DARREN.SHOE RECONDITIONER [address] [place] [address] Stripe Marker Internal Medicine 06/20/24 Mony Virk APRN.METALWORKING SPECIALIST [address] [place] [address] Stripe Marker Internal Medicine 06/20/24 Component Prep Operator Relationship Specialty Start Date End Date Cheryle Werner MD [address] [place] [address] PCP - General Internal Medicine 02/13/17 Elena Fairchild, BLOCKER HAND.SHOE RECONDITIONER [address] [place] [address] Stripe Marker Internal Medicine 06/20/24 Mony Virk APRN.METALWORKING SPECIALIST [address] [place] [address] Stripe Marker Internal Medicine 06/20/24 Component Prep Operator Relationship Specialty Start Date End Date Cheryle Werner MD [address] [place] [address] PCP - General Internal Medicine 02/13/17 Elena Fairchild, BLOCKER HAND.SHOE RECONDITIONER [address] [place] [address] Stripe Marker Internal Medicine 06/20/24 Mony Virk BLOCKER HAND.METALWORKING SPECIALIST [address] [place] [address] Stripe Marker Internal Medicine 06/20/24 Component Prep Operator Relationship Specialty Start Date End Date Cheryle Werner MD [address] [place] [address] PCP - General Internal Medicine 02/13/17 Elena Fairchild, BLOCKER HAND.SHOE RECONDITIONER [address] [place] [address] Stripe Marker Internal Medicine 06/20/24 Mony Virk BLOCKER HAND.METALWORKING SPECIALIST [address] [place] [address] Stripe Marker Internal Medicine 06/20/24 Component Prep Operator Relationship Specialty Start Date End Date Cheryle Werner MD [address] [place] [address] PCP - General Internal Medicine 02/13/17 Elena Fairchild, BLOCKER HAND.SHOE RECONDITIONER [address] [place] [address] Stripe Marker Internal Medicine 06/20/24 Mony Virk BLOCKER HAND.METALWORKING SPECIALIST [address] [place] [address] Stripe Marker Internal Medicine 06/20/24 Component Prep Operator Relationship Specialty Start Date End Date Cheryle Werner MD [address] [place] [address] PCP - General Internal Medicine 02/13/17 Elena Fairchild, BLOCKER HAND.SHOE RECONDITIONER [address] [place] [address] Stripe Marker Internal Medicine 06/20/24 Mony Virk BLOCKER HAND.METALWORKING SPECIALIST [address] [place] [address] [facility] Internal Medicine 06/20/24 Component Prep Operator Relationship Specialty Start Date End Date Cheryle Werner MD [address] [place] [address] PCP - General Internal Medicine 02/13/17 Elena Fairchild, BLOCKER HAND.SHOE RECONDITIONER [address] [place] [address] Stripe Marker Internal Medicine 06/20/24 Mony Virk BLOCKER HAND.METALWORKING SPECIALIST [address] [place] [address] [facility] Internal Medicine 06/20/24 Component Prep Operator Relationship Specialty Start Date End Date Cheryle Werner MD [address] [place] [address] PCP - General Internal Medicine 02/13/17 Elena Fairchild, BLOCKER HAND.SHOE RECONDITIONER [address] [place] [address] Stripe Marker Internal Medicine 06/20/24 Mony Virk BLOCKER HAND.METALWORKING SPECIALIST [address] [place] [address] Stripe Marker Internal Medicine 10/04/24 Component Prep Operator Relationship Specialty Start Date End Date Cheryle Werner MD [address] [place] [address] PCP - General Internal Medicine 02/13/17 Elena Fairchild, BLOCKER HAND.SHOE RECONDITIONER [address] [place] [address] Stripe Marker Internal Medicine 06/20/24 Mony Virk BLOCKER HAND.METALWORKING SPECIALIST [address] [place] [address] Stripe Marker Internal Medicine 10/04/24 Component Prep Operator Relationship Specialty Start Date End Date Cheryle Werner MD [address] [place] [address] PCP - General Internal Medicine 02/13/17 Elena Fairchild, BLOCKER HAND.SHOE RECONDITIONER [address] [place] [address] Stripe Marker Internal Medicine 06/20/24 Mony Virk BLOCKER HAND.METALWORKING SPECIALIST [address] [place] [address] Stripe Marker Internal Medicine 06/20/24 09/30/24 Mony Virk APRN.METALWORKING SPECIALIST [address] [place] [address] Stripe Marker Internal Medicine 10/04/24 Component Prep Operator Relationship Specialty Start Date End Date Cheryle Werner MD [address] [place] [address] PCP - General Internal Medicine 02/13/17 Elena Fairchild, BLOCKER HAND.SHOE RECONDITIONER [address] [place] [address] Stripe Marker Internal Medicine 06/20/24 Mony Virk BLOCKER HAND.METALWORKING SPECIALIST [address] [place] [address] [facility] Internal Medicine 06/20/24 09/30/24 Mony Virk BLOCKER HAND.METALWORKING SPECIALIST [address] [facility] [place] [address] Stripe Marker Internal Medicine 10/04/24 Component Prep Operator Relationship Specialty Start Date End Date Cheryle Werner MD [address] [place] [address] PCP - General Internal Medicine 02/13/17 Elena Fairchild, BLOCKER HAND.SHOE RECONDITIONER [address] [place] [address] [facility] Internal Medicine 06/20/24 Mony Virk BLOCKER HAND.METALWORKING SPECIALIST [address] [place] [address] [facility] Internal Medicine 10/04/24 Component Prep Operator Relationship Specialty Start Date End Date Cheryle Werner MD [address] [place] [address] PCP - General Internal Medicine 02/13/17 Elena Fairchild, BLOCKER HAND.SHOE RECONDITIONER [address] [facility] [place] [address] [facility] Internal Medicine 06/20/24 11/29/24 Mony Virk APRN.METALWORKING SPECIALIST [address] [place], [place] [id number] [facility] Internal Medicine 10/04/24 Elena Fairchild APRN.SHOE RECONDITIONER [address] [place], [place] [id number] [facility] Internal [facility] 11/30/24 FOR RECORDS PERTAINING TO PATIENTS WHO ARE OR HAVE BEEN ENROLLED IN A CHEMICAL DEPENDENCY/SUBSTANCEABUSE PROGRAM, SOME INFORMATION MAY BE OMITTED. This clinical summary was aggregated from multiple sources. Caution should be exercised in using it in the provision of clinical care. This summary normalizes information from multiple sources, and as a consequence, information in this document may materially change the coding, format and clinical context of patient data. In addition, data may be omitted in some cases. CLINICAL DECISIONS SHOULD BE BASED ON THE PRIMARY CLINICAL RECORDS. [employer] [facility]. provides no warranty or guarantee of the accuracy or completeness of information in this document.
[2025-02-28 06:00] VITALS: BP 133/87; PULSE 72; RESP 17; O2SAT 99
--- NOTE | 2025-02-28 06:00 | RAD_ITS ---
PROCEDURE: CHEST PA AND LATERAL 02/28/2025 REASON FOR EXAM: CHEST PAIN TECHNIQUE: CHEST PA AND LATERAL COMPARISON: None FINDINGS: Heart size and mediastinal configuration are within normal limits. There is no focal infiltrate or consolidation. There is no pneumothorax or effusion. There is no acute bony abnormality. There is no visible atherosclerosis. RAD/Chest PA and Lateral IMPRESSION: No acute process is identified in the chest. Reading Location: [facility]
[2025-02-28 06:02] LABS: Hematocrit 34.5 % (37-47); Hemoglobin 11.6 g/dL (12.0-15.0); Immature Granulocytes Count 0.030 X10^3/uL (0.0-0.0); Mean Corp Hgb Conc 33.6 g/dL (32-36); Mean Corpuscular Volume 91.3 fL (81-99); Mean Platelet Vol. 10.9 fl (6.2-12.0); NRBC Flagged by Analyzer 0 % (0-5); Platelet Count 311 K/mm3 (150-450); RBC Distribution Width CV 12.7 % (11.6-14.6); RBC Distribution Width SD 42.1 fl (35.1-43.9); Red Blood Count 3.78 M/mm3 (4.2-5.4); White Blood Count 9.1 K/mm3 (4.4-11.0)
[2025-02-28 06:22] LABS: Anion Gap 9 (5-15); BUN 35 mg/dL (4-19); BUN/Creat Ratio 55.4 RATIO (10-20); Calcium,Total 8.8 mg/dL (7.6-11.0); Carbon Dioxide 26.1 mmol/L (21.0-32.0); Chloride 104 mmol/L (98-108); Estimated Creatinine Clearance 104.55 ml/min (50-250); Glucose 84 mg/dL (70-99); Potassium 4.7 mmol/L (3.3-5.1); Troponin T High Sensitivity < 6 ng/L (<=14)
[2025-02-28 06:30] LABS: D-Dimer Quantitative (DVT/PE) 0.85 FEU/ug/m (0.27-0.49)
--- NOTE | 2025-02-28 06:32 | CT_ITS ---
PROCEDURE: CTA CHEST W/WO CONTRAST 02/28/2025 REASON FOR EXAM: ELEVATED D-DIMER 2 day history of intermittent chest pain and shortness of breath. TECHNIQUE: CTA CHEST W/WO CONTRAST Multiplanar Sagittal and Coronal images were obtained. 3D post processing was performed CONTRAST: Isovue-300 VOLUME: 100 mL One or more dose reduction techniques were used (e.g., Automated exposure control, adjustment of the mA and/or kV according to patient size, use of iterative reconstruction technique). RADIATION DOSE SUMMARY: CTDlvol: 4.3 mGy DLP: 141.99 mGycm COMPARISON: Prior chest radiograph done earlier in the day. FINDINGS: Hardware: None Lymph nodes: None Heart: The heart is nonenlarged. No coronary artery calcification. Thoracic Aorta: No thoracic aortic aneurysm or dissection. Pulmonary Vessels: No evidence of pulmonary embolism. Lungs and Airways: Lungs are clear. No infiltrate. Pleura: Unremarkable Upper Abdomen: Unremarkable Bones: Bone windows are unremarkable. CT/CTA Chest W/WO Contrast IMPRESSION: NORMAL CHEST CTA. NO EVIDENCE OF ACUTE PULMONARY EMBOLISM. Reading Location: [id number]
[2025-02-28 07:00] VITALS: BP 134/90; PULSE 83; RESP 9; TEMP 36.7; O2SAT 100
[2025-02-28 07:55] VITALS: BP 118/86; PULSE 76; RESP 13; TEMP 36.7; O2SAT 100
[2025-02-28 08:05] LABS: Troponin T High Sens 2 HR < 6 ng/L (<=14)
== END 2025-02-28 07:57 | disposition home or self-care (01) ==
PROVIDERS: Emergency Provider Emergency Medicine; PCP Internal Medicine; Visit Provider Emergency Medicine
DX: R07.89 Other chest pain (principal); R06.02 Shortness of breath; R11.0 Nausea; R03.0 Elevated blood-pressure reading, without diagnosis of hypertension; R51.9 Headache, unspecified
CPT/HCPCS: 71046; 71275; 80048; 84484; 85025; 85379; 93005; 99284; Q9967; A4216